=== PATIENT | female | born 1980 | race Caucasian/White ===

== ENCOUNTER 2016-08-09 20:40 | Emergency (ER) | payer OTHER ==
[~2016-08-09] VITALS: Ht 167.6 cm; Wt 146.4 kg
[~2016-08-09 20:40] MED LIST: ALBU1AER9 INH; ATRIN INH; CYCL10TA6 PO; EPIN1INJ37 IM; HYDR-5688 PO; LISI-461 PO; OXYC-57 PO; POTA10TA PO; PROM25TA9 PO
[2016-08-09 20:57] VITALS: TEMP 36.9; Ht 167.6 cm; Wt 146.4 kg
[2016-08-09] MEDS ORDERED: ALBU0.08 NEB (21:05)
[2016-08-09] MEDS ORDERED: ONDANSETRON INJ 2 MG/ML 2 ML VIAL IV STA (21:12)
[2016-08-09] MEDS ORDERED: SODIUM CHLORIDE 0.9% 1000ML 1,000 ML IV STA (21:12)
[2016-08-09] MEDS ORDERED: KETOROLAC TROMETHAMINE 30 MG/ML VIAL IV STA (21:12)
[2016-08-09] MEDS ORDERED: OPTIRAY 320 IV PRN (21:45)
[2016-08-09 21:49] LABS: BASO % 0.8 %; BASO ABS # 0.08 K/uL (0-0.2); COMPLETE YES; EOS % 2.1 %; IG% 0.3 %; LYMPH % 32.4 %; LYMPH ABS # 3.08 K/uL (1.2-3.4); MEAN CELL VOLUME 85.4 fL (80-100); MEAN CORPUSCULAR HEMOGLOBIN 28.7 pg (25-34); MEAN CORPUSCULAR HGB CONC 33.6 g/dl (32-36); MEAN PLATELET VOLUME 9.9 fL (7.4-10.4); MONO % 5.9 %; NEUT % 58.5 %; PLATELET COUNT 378 K/uL (130-400); RED BLOOD COUNT 4.92 M/uL (4.2-5.4); WHITE BLOOD COUNT 9.51 K/uL (4.8-10.8)
[2016-08-09 21:54] LABS: URINE APPEARANCE CLEAR (CLEAR); URINE BILIRUBIN NEG (NEG); URINE COLOR YELLOW; URINE EPITHELIAL CELL AUTO >30 /lpf (0-5); URINE NITRITE NEG (NEG); URINE SPECIFIC GRAVITY 1.021 (1.000-1.030); UROBILINOGEN NEG (NEG); ZZUR CULT IF INDIC CLEAN CATCH NO
[2016-08-09 21:55] LABS: MANUAL MICROSCOPIC REQUIRED? NO; REVIEW REQ? NO
[2016-08-09 22:10] LABS: ALT/SGPT 26 U/L (12-78); BLOOD UREA NITROGEN 11 mg/dl (7-18); BUN/CREATININE RATIO 14.1 (10-20); CARBON DIOXIDE 25 mmol/L (21-32); CHLORIDE 106 mmol/L (98-107); CREATININE 0.79 mg/dl (0.60-1.20); GLUCOSE 128 mg/dl (70-99); POTASSIUM 3.6 mmol/L (3.5-5.1); SODIUM 142 mmol/L (136-145)
[2016-08-09 22:13] LABS: ALKALINE PHOSPHATASE 108 U/L (45-117); AST/SGOT 18 U/L (15-37)
[2016-08-09] MEDS ORDERED: MoRPHine SULFATE 10 MG/ML CARP/VIAL IV STA (22:58)
[2016-08-09] MEDS ORDERED: OMEP40CA PO (23:00)
[2016-08-09] MEDS ORDERED: ZNTT/150 PO (23:01)
--- NOTE | 2016-08-09 23:26 | DIAGNOSTIC IMAGING REPORT ---
ABDOMEN AND PELVIS CT WITH IV CONTRAST CT DOSE: 1905.08 mGy.cm HISTORY: right mid lower abdominal pain TECHNIQUE: Multiaxial CT images of the abdomen and pelvis were performed following the use of intravenous contrast. COMPARISON STUDY: Abdomen and pelvis CT 07/22/2016. FINDINGS: The lung bases are clear. No pneumoperitoneum. No pneumatosis. No acute fractures within the visualized osseous structures. Tiny fat-containing umbilical hernia. Cholecystectomy and hysterectomy. The bladder is unremarkable. No pelvic free fluid. The ovaries are within normal limits. No hepatic or splenic masses. The pancreas, adrenal glands, and kidneys enhance normally. No hydronephrosis. No retroperitoneal lymphadenopathy. No bowel wall thickening or obstruction. Normal appendix. IMPRESSION: 1. No bowel wall thickening or obstruction. 2. Normal appendix. Electronically signed by: Jorge Talley M.D. 08/09/2016 11:24 PM Dictated Date/Time: 08/09/2016 11:17 PM
[2016-08-09 23:57] VITALS: BP 172/102; PULSE 88; O2SAT 97
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
[2017-03-29] MEDS ORDERED: FLUT1INH INH (13:23)
[2017-03-29] MEDS ORDERED: VNTHFA/IN INH (13:23)
[2017-03-29] MEDS ORDERED: CHOL100010 PO (13:23)
[2017-03-29] MEDS ORDERED: ALBU1.257 NEB (13:23)
== END 2016-08-09 23:57 | disposition home or self-care (01) ==
LOC: C.EDB 20:41
DX: R10.11 Right upper quadrant pain (principal); R11.0 Nausea; J45.909 Unspecified asthma, uncomplicated; E66.01 Morbid (severe) obesity due to excess calories; Z87.442 Personal history of urinary calculi; Z83.3 Family history of diabetes mellitus; Z82.49 Family history of ischemic heart disease and other diseases of the circulatory system; Z84.1 Family history of disorders of kidney and ureter; Z82.0 Family history of epilepsy and other diseases of the nervous system; Z90.710 Acquired absence of both cervix and uterus

== ENCOUNTER 2016-08-15 20:50 | Emergency (ER) | payer OTHER ==
[~2016-08-15] VITALS: Ht 167.6 cm; Wt 146.9 kg
[~2016-08-15 20:50] MED LIST changes: +ALBU0.08 NEB; +OMEP40CA PO; +ZNTT/150 PO
[2016-08-15 20:51] VITALS: Ht 167.6 cm; Wt 146.9 kg
[2016-08-15] MEDS ORDERED: NITR-5 PO (21:11)
[2016-08-15] MEDS ORDERED: ONDANSETRON INJ 2 MG/ML 2 ML VIAL IV STA (21:36)
[2016-08-15] MEDS ORDERED: MoRPHine SULFATE 10 MG/ML CARP/VIAL IV STA (21:36)
[2016-08-15] MEDS ORDERED: KETOROLAC TROMETHAMINE 30 MG/ML VIAL IV STA (21:36)
[2016-08-15] MEDS ORDERED: SODIUM CHLORIDE 0.9% 1000ML 1,000 ML IV STA (21:36)
[2016-08-15 21:46] LABS: BASO % 0.5 %; BASO ABS # 0.06 K/uL (0-0.2); COMPLETE YES; EOS % 2.3 %; HEMATOCRIT 43.9 % (37-47); IG% 0.3 %; LYMPH ABS # 3.15 K/uL (1.2-3.4); MEAN CELL VOLUME 84.4 fL (80-100); MEAN CORPUSCULAR HEMOGLOBIN 28.8 pg (25-34); MEAN CORPUSCULAR HGB CONC 34.2 g/dl (32-36); MEAN PLATELET VOLUME 10.3 fL (7.4-10.4); MONO % 8.1 %; NEUT % 60.8 %; PLATELET COUNT 392 K/uL (130-400); WHITE BLOOD COUNT 11.23 K/uL (4.8-10.8)
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
[2016-08-15 21:54] LABS: URINE APPEARANCE CLEAR (CLEAR); URINE BILIRUBIN NEG (NEG); URINE COLOR YELLOW; URINE NITRITE NEG (NEG); URINE SPECIFIC GRAVITY 1.016 (1.000-1.030); UROBILINOGEN NEG (NEG); ZZUR CULT IF INDIC CLEAN CATCH NO
[2016-08-15 21:58] LABS: MANUAL MICROSCOPIC REQUIRED? NO; REVIEW REQ? NO
[2016-08-15 22:01] LABS: ALKALINE PHOSPHATASE 119 U/L (45-117); ALT/SGPT 28 U/L (12-78); AST/SGOT 23 U/L (15-37); BLOOD UREA NITROGEN 9 mg/dl (7-18); BUN/CREATININE RATIO 12.6 (10-20); CARBON DIOXIDE 24 mmol/L (21-32); CHLORIDE 108 mmol/L (98-107); CREATININE 0.72 mg/dl (0.60-1.20); GLUCOSE 99 mg/dl (70-99); POTASSIUM 3.9 mmol/L (3.5-5.1); SODIUM 143 mmol/L (136-145)
--- NOTE | 2016-08-15 22:48 | DIAGNOSTIC IMAGING REPORT ---
ULTRASOUND KIDNEYS AND BLADDER CLINICAL HISTORY: Bilateral flank pain. COMPARISON STUDY: Abdominal CT dated 08/09/2016. TECHNIQUE: Real-time, grayscale, and color flow sonography of the kidneys and bladder is performed. Images are reviewed in the transverse and longitudinal planes. The examination is degraded by large body habitus. FINDINGS: Kidneys: The kidneys are normal in size and echotexture. The right kidney measures 12.9 cm inlet and the left kidney measures 12.4 cm in length. There is no hydronephrosis. No shadowing renal calculi are identified. There is no sonographic evidence of contour deforming renal mass lesion. No perinephric fluid is identified. Bladder: The bladder is normal in appearance. Bilateral ureteral jets were seen. Upper abdomen: Hepatomegaly and hepatic steatosis is noted. IMPRESSION: 1. Unremarkable sonographic assessment of the kidneys and bladder. 2. Hepatomegaly and hepatic steatosis. Electronically signed by: Christ Joseph M.D. 08/15/2016 10:46 PM Dictated Date/Time: 08/15/2016 10:44 PM
[2016-08-16 00:06] VITALS: BP 157/99; PULSE 88; TEMP 37.2; O2SAT 97
[2017-03-29] MEDS ORDERED: CHOL100010 PO (13:23)
[2017-03-29] MEDS ORDERED: VNTHFA/IN INH (13:23)
[2017-03-29] MEDS ORDERED: FLUT1INH INH (13:23)
[2017-03-29] MEDS ORDERED: ALBU1.257 NEB (13:23)
== END 2016-08-16 00:07 | disposition home or self-care (01) ==
LOC: C.EDB 20:50 → C.EDC 08-16 00:07
DX: R10.9 Unspecified abdominal pain (principal); J45.909 Unspecified asthma, uncomplicated; F31.9 Bipolar disorder, unspecified; Z87.442 Personal history of urinary calculi; E11.9 Type 2 diabetes mellitus without complications; I10 Essential (primary) hypertension; G43.909 Migraine, unspecified, not intractable, without status migrainosus; Z79.899 Other long term (current) drug therapy

== ENCOUNTER → 2016-09-16 | Outpatient (CLI) | payer OTHER ==
[~2016-09-16] MED LIST changes: +ALBU1.257 NEB; +AMLO-114 PO; +CARV12.5 PO; +CHOL100010 PO; +ERGO500037 PO; +FLUT1INH INH; +FLUT1INH PO; +HYDR50CA2 PO; +LISI-788 PO; +LITH150C6 PO; +MONT1TAB3 PO; +NITR-5 PO; +OSEL75CA12 PO; +PARO30TA PO; +POTA-74 PO; +PRLSR20 PO; +RANITAB33 PO; +SUMA20SP8; +VNTHFA/IN INH
== END | disposition home or self-care (01) ==
LOC: C.LAB1850 15:36
PROVIDERS: ATTEND Family Medicine
DX: E55.9 Vitamin D deficiency, unspecified (principal); E53.8 Deficiency of other specified B group vitamins

== ENCOUNTER 2016-10-18 00:52 | Emergency (ER) | payer OTHER ==
[~2016-10-18] VITALS: Ht 165.1 cm; Wt 148.6 kg
[~2016-10-18 00:52] MED LIST changes: -ALBU1.257 NEB; -AMLO-114 PO; -CARV12.5 PO; -CHOL100010 PO; -ERGO500037 PO; -FLUT1INH INH; -FLUT1INH PO; -HYDR50CA2 PO; -LISI-788 PO; -LITH150C6 PO; -MONT1TAB3 PO; -OSEL75CA12 PO; -OXYC-57 PO; -PARO30TA PO; -POTA-74 PO; -PRLSR20 PO; -RANITAB33 PO; -SUMA20SP8; -VNTHFA/IN INH
[2016-10-18 00:56] VITALS: TEMP 36.9; Ht 165.1 cm; Wt 148.6 kg
[2016-10-18] MEDS ORDERED: DiphenhydrAMINE HCL 50 MG/ML VIAL IV STA (01:10)
[2016-10-18] MEDS ORDERED: KETOROLAC TROMETHAMINE 30 MG/ML VIAL IV STA (01:10)
[2016-10-18] MEDS ORDERED: SODIUM CHLORIDE 0.9% 1000ML 1,000 ML IV STA (01:10)
[2016-10-18] MEDS ORDERED: METOCLOPRAMIDE HCL INJ 5 MG/ML 2 ML VIAL IV STA (01:10)
[2016-10-18 02:11] VITALS: BP 144/90; PULSE 91; O2SAT 97
[2016-10-18] MEDS ORDERED: LITH150C6 PO ×2 (02:16)
[2016-10-18] MEDS ORDERED: PRLSR20 PO (02:17)
[2016-10-18] MEDS ORDERED: RANITAB33 PO (02:17)
[2016-10-18] MEDS ORDERED: PARO30TA PO (02:18)
[2016-10-18] MEDS ORDERED: MONT1TAB3 PO (02:18)
[2016-10-18] MEDS ORDERED: AMLO-114 PO (02:18)
[2016-10-18] MEDS ORDERED: CARV12.5 PO (02:20)
[2016-10-18] MEDS ORDERED: HYDR50CA2 PO (02:20)
[2016-10-18] MEDS ORDERED: FLUT1INH PO (02:20)
[2016-10-18] MEDS ORDERED: POTA-74 PO (02:20)
[2016-10-18] MEDS ORDERED: LISI-788 PO (02:20)
[2016-10-18] MEDS ORDERED: ERGO500037 PO (02:21)
[2016-10-18] MEDS ORDERED: SUMA20SP8 (02:21)
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
[2017-03-29] MEDS ORDERED: ALBU1.257 NEB (13:23)
[2017-03-29] MEDS ORDERED: CHOL100010 PO (13:23)
[2017-03-29] MEDS ORDERED: FLUT1INH INH (13:23)
[2017-03-29] MEDS ORDERED: VNTHFA/IN INH (13:23)
== END 2016-10-18 02:12 | disposition home or self-care (01) ==
LOC: C.EDB 00:54 → C.EDC 02:12
DX: G43.009 Migraine without aura, not intractable, without status migrainosus (principal); J45.909 Unspecified asthma, uncomplicated; F31.9 Bipolar disorder, unspecified; Z87.442 Personal history of urinary calculi; E11.9 Type 2 diabetes mellitus without complications; I10 Essential (primary) hypertension; Z91.81 History of falling; Z87.828 Personal history of other (healed) physical injury and trauma; Z83.3 Family history of diabetes mellitus; Z80.9 Family history of malignant neoplasm, unspecified; Z83.79 Family history of other diseases of the digestive system; Z82.49 Family history of ischemic heart disease and other diseases of the circulatory system; Z84.1 Family history of disorders of kidney and ureter; Z79.899 Other long term (current) drug therapy

== ENCOUNTER 2016-10-29 11:10 | Emergency (ER) | payer OTHER ==
[~2016-10-29] VITALS: Ht 165.1 cm; Wt 146.0 kg
[~2016-10-29 11:10] MED LIST changes: -ALBU0.08 NEB; -ALBU1AER9 INH; +AMLO-114 PO; -ATRIN INH; +CARV12.5 PO; +ERGO500037 PO; +FLUT1INH PO; -HYDR-5688 PO; +HYDR50CA2 PO; -LISI-461 PO; +LISI-788 PO; +LITH150C6 PO; +MONT1TAB3 PO; -NITR-5 PO; -OMEP40CA PO; +PARO30TA PO; +POTA-74 PO; -POTA10TA PO; +PRLSR20 PO; -PROM25TA9 PO; +RANITAB33 PO; +SUMA20SP8; -ZNTT/150 PO
[2016-10-29 11:16] VITALS: TEMP 37.4; Ht 165.1 cm; Wt 146.0 kg
[2016-10-29] MEDS ORDERED: ALBUT/IPRATROP 3MG/0.5MG NEB 3 ML VIAL INH STA (11:35)
[2016-10-29 11:57] LABS: BASO % 0.9 %; BASO ABS # 0.06 K/uL (0-0.2); COMPLETE YES; EOS % 2.2 %; IG% 0.3 %; LYMPH % 8.7 %; MEAN CELL VOLUME 86.1 fL (80-100); MEAN CORPUSCULAR HGB CONC 33.6 g/dl (32-36); MEAN PLATELET VOLUME 9.8 fL (7.4-10.4); MONO % 9.1 %; NEUT % 78.8 %; PLATELET COUNT 320 K/uL (130-400); RED BLOOD COUNT 5.11 M/uL (4.2-5.4); WHITE BLOOD COUNT 6.92 K/uL (4.8-10.8)
[2016-10-29 12:13] LABS: ALT/SGPT 30 U/L (12-78); BLOOD UREA NITROGEN 9 mg/dl (7-18); BUN/CREATININE RATIO 12.4 (10-20); CALCIUM 8.5 mg/dl (8.5-10.1); CARBON DIOXIDE 23 mmol/L (21-32); CHLORIDE 106 mmol/L (98-107); CREATININE 0.76 mg/dl (0.60-1.20); GLUCOSE 97 mg/dl (70-99); POTASSIUM 3.9 mmol/L (3.5-5.1); SODIUM 138 mmol/L (136-145)
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
[2016-10-29 12:17] LABS: ALB/GLOB RATIO 0.8 (0.9-2); ALKALINE PHOSPHATASE 122 U/L (45-117); AST/SGOT 34 U/L (15-37)
--- NOTE | 2016-10-29 12:20 | DIAGNOSTIC IMAGING REPORT ---
CHEST 2 VIEWS ROUTINE CLINICAL HISTORY: Cough, sob, chest pain COMPARISON STUDY: Chest radiograph and chest CT September 29, 2015. FINDINGS: Lung volumes are normal. There is no pneumothorax or pleural effusion. Pulmonary vascularity is normal. Cardiomediastinal silhouette is normal. IMPRESSION: No acute cardiopulmonary findings. Electronically signed by: Talha Grijalva M.D. 10/29/2016 12:18 PM Dictated Date/Time: 10/29/2016 12:18 PM
[2016-10-29] MEDS ORDERED: OSEL75CA12 PO (12:53)
[2016-10-29 13:01] VITALS: BP 187/114; PULSE 107; O2SAT 96
[2017-03-29] MEDS ORDERED: CHOL100010 PO (13:23)
[2017-03-29] MEDS ORDERED: VNTHFA/IN INH (13:23)
[2017-03-29] MEDS ORDERED: ALBU1.257 NEB (13:23)
[2017-03-29] MEDS ORDERED: FLUT1INH INH (13:23)
== END 2016-10-29 13:02 | disposition home or self-care (01) ==
LOC: C.EDB 11:12
DX: J09.X2 Influenza due to identified novel influenza A virus with other respiratory manifestations (principal); I45.10 Unspecified right bundle-branch block; E11.9 Type 2 diabetes mellitus without complications; I10 Essential (primary) hypertension; N83.202 Unspecified ovarian cyst, left side; F41.9 Anxiety disorder, unspecified; J45.909 Unspecified asthma, uncomplicated; F17.200 Nicotine dependence, unspecified, uncomplicated; Z87.820 Personal history of traumatic brain injury; Z87.442 Personal history of urinary calculi; Z87.81 Personal history of (healed) traumatic fracture; Z91.81 History of falling; Z90.710 Acquired absence of both cervix and uterus; Z98.51 Tubal ligation status; Z90.49 Acquired absence of other specified parts of digestive tract; Z79.899 Other long term (current) drug therapy; Z91.018 Allergy to other foods; Z91.030 Bee allergy status; Z83.3 Family history of diabetes mellitus; Z80.9 Family history of malignant neoplasm, unspecified; Z83.79 Family history of other diseases of the digestive system; Z82.49 Family history of ischemic heart disease and other diseases of the circulatory system; Z84.1 Family history of disorders of kidney and ureter; Z82.0 Family history of epilepsy and other diseases of the nervous system

== ENCOUNTER → 2017-03-30 | Day surgery (SDC) | payer OTHER ==
[2017-03-29 13:09] VITALS: Ht 165.1 cm; Wt 151.4 kg
[~2017-03-30] VITALS: Ht 165.1 cm; Wt 151.4 kg
[~2017-03-30] MED LIST changes: +ALBU1.257 NEB; +CHOL100010 PO; -CYCL10TA6 PO; -ERGO500037 PO; +FLUT1INH INH; -FLUT1INH PO; +LIDOCAINE HCL 2% 2 ML VIAL (20MG/ML) ONE; -LITH150C6 PO; +MIDAZOLAM HCL 1 MG/ML 2ML VIAL ONE; -MONT1TAB3 PO; +ONDANSETRON INJ 2 MG/ML 2 ML VIAL ONE; -PARO30TA PO; +PROPOFOL IV EMULSION 10 MG/ML 20 ML VIAL IV ONE; +SODIUM CHLORIDE 0.9% 500ML 500 ML IV ONE; +VNTHFA/IN INH
[2017-03-30 15:01] VITALS: TEMP 37.1
--- NOTE | 2017-03-30 15:22 | Endo History and Physical ---
History & Physical Date of Service: Mar 30, 2017. Chief Complaint: rectal bleeding Referring Physician: Tracie Garner PA-C History of Present Illness 36 yo CF who presents for colonoscopy secondary to rectal bleeding. Past Medical History Other Psy. Disorders, Arthritis, Asthma, Anxiety, Hypertension, Depression Past Surgical History Hx Cardiac Surgery: No Hx Internal Defibrillator: No Hx Pacemaker: No Hx Abdominal Surgery: Yes (JORDON, TUBAL LIGATION, HYSTERECTOMY, OVARIAN CYST REMOVAL) Hx of Implantable Prosthesis: No Hx Post-Op Nausea and Vomiting: No Hx Cancer Surgery: No Hx Thoracic Surgery: No Hx Orthopedic: Yes (RT/LEFT KNEE SURGERY, LEFT ANKLE SX X 2, RT WRIST GANGLION CYST REMOVED) Hx Urinary Tract Surgery: No Family History Colon CA, IBD Social History Smoking Status: Former Smoker Hx Substance Use: No Hx Alcohol Use: Yes (RARELY) Allergies Coded Allergies: BEE STING (Verified Allergy, Severe, swell, has epi pen, 03/29/17) Pineapple (Verified Allergy, Severe, MOUTH RASH, 03/29/17) Clam (Verified Allergy, Unknown, throat closes, 03/29/17) Coconut (Verified Allergy, Unknown, rash if touched, throat closes if eaten, 03/29/17) Copper (Verified Allergy, Unknown, rash , 03/29/17) Lamotrigine (Verified Allergy, Unknown, itching, rash,sob(to generic) .can use brand name, 03/29/17) Mussel (Verified Allergy, Unknown, throat closes , 03/29/17) Nickel (Verified Allergy, Unknown, rash, 03/29/17) Oyster (Verified Allergy, Unknown, throat closes , 03/29/17) Scallop (Verified Allergy, Unknown, UNKNOWN, 03/29/17) Current Medications Reported Home Medications Medications Dose Route/Sig Max Daily Dose Days Date Category Vitamin D (Cholecalciferol) 1,000 Unit Tab 1 Tab PO BID 03/29/17 Reported Ventolin Hfa (Albuterol) 200 Puffs/85553 Mcg Aers 2-4 Puffs INH Q6H PRN 03/29/17 Reported Breo Ellipta (Fluticasone Furoate-Vilanterol) 1 Inh Inh 1 Puff INH QAM 03/29/17 Reported Albuterol Sulfate 1.25 Mg/3 Ml Neb 1 Vial NEB Q4 PRN 5 03/29/17 Reported Imitrex (Sumatriptan) 20 Mg/Act Spr 1 Dose NA UD PRN 10/18/16 Reported Vistaril (Hydroxyzine Pamoate) 50 Mg Cap 50 Mg PO BID PRN 10/18/16 Reported Zestoretic 20MG/25MG (HCTZ/Lisinopril) Tab 1 Tab PO BID 10/18/16 Reported Coreg (Carvedilol) 12.5 Mg Tab 12.5 Mg PO BID 10/18/16 Reported Potassium Chloride Er (Potassium Chloride) 10 Meq Tab 1 Tab PO QAM 10/18/16 Reported Norvasc (Amlodipine Besylate) 10 Mg Tab 10 Mg PO QAM 10/18/16 Reported Zantac (Ranitidine Hcl) 75 Mg Tab 75 Mg PO QAM 10/18/16 Reported Prilosec (Omeprazole) 20 Mg Capcr 20 Mg PO BID 10/18/16 Reported Epinephrine 0.3 Mg/0.3 Ml Inj 0.3 Mg IM UD PRN 06/05/14 Reported Vital Signs Weight (Kilograms): 151.36 Height (Feet): 5 Height (Inches): 5 Date Time Temp Pulse Resp B/P (MAP) Pulse Ox O2 Delivery O2 Flow Rate FiO2 03/30/17 15:01 37.1 98 20 177/94 (121) 96 Room Air Physical Exam General Appearance: WD/WN, no apparent distress Respiratory/Chest: Auscultation: breath sounds normal Cardiovascular: Heart Auscultation: RRR Abdomen: Bowel Sounds: normal Inspection & Palpation: soft, non-distended, no tenderness, guarding & rebound Assessment and Plan Assessment: 36 yo CF who presents for colonoscopy secondary to rectal bleeding. Plan: Proceed with colonoscopy.
--- NOTE | 2017-03-30 16:06 | GI REPORT ---
Procedure Date: 03/30/2017 3:34 PM Procedure: Colonoscopy Indications: Rectal bleeding Medicines: Monitored Anesthesia Care Complications: No immediate complications. Estimated Blood Loss: Estimated blood loss: none. Procedure: Pre-Anesthesia Assessment: - Prior to the procedure, a History and Physical was performed, and patient medications and allergies were reviewed. The patient's tolerance of previous anesthesia was also reviewed. The risks and benefits of the procedure and the sedation options and risks were discussed with the patient. All questions were answered, and informed consent was obtained. Prior Anticoagulants: The patient has taken no previous anticoagulant or antiplatelet agents. ASA Grade Assessment: III - A patient with severe systemic disease. After reviewing the risks and benefits, the patient was deemed in satisfactory condition to undergo the procedure. After I obtained informed consent, the scope was passed under direct vision. Throughout the procedure, the patient's blood pressure, pulse, and oxygen saturations were monitored continuously. The On-site loaner was introduced through the anus and advanced to the terminal ileum. The colonoscopy was performed without difficulty. The patient tolerated the procedure well. The quality of the bowel preparation was poor. The terminal ileum, ileocecal valve, appendiceal orifice, and rectum were photographed. Findings: Non-bleeding external and internal hemorrhoids were found during retroflexion and during perianal exam. The hemorrhoids were medium-sized. The exam was otherwise without abnormality. Impression: - Preparation of the colon was poor. - Non-bleeding external and internal hemorrhoids. - The examination was otherwise normal. - No specimens collected. Recommendation: - Resume previous diet. - Continue present medications. - Repeat colonoscopy at age 51 for surveillance. - Return to primary care physician as previously scheduled. Sandeep Watts, 03/30/2017 4:05:50 PM This report has been signed electronically. Note Initiated On: 03/30/2017 3:34 PM I attest to the content of the Intraoperative Record and orders documented therein, exceptions below
--- NOTE | 2017-03-30 16:13 | Discharge Instructions ---
Endoscopy Patient Instructions Date / Procedure(s) Performed Mar 30, 2017. Colonoscopy Allergy Information Coded Allergies: BEE STING (Verified Allergy, Severe, swell, has epi pen, 03/29/17) Pineapple (Verified Allergy, Severe, MOUTH RASH, 03/29/17) Clam (Verified Allergy, Unknown, throat closes, 03/29/17) Coconut (Verified Allergy, Unknown, rash if touched, throat closes if eaten, 03/29/17) Copper (Verified Allergy, Unknown, rash , 03/29/17) Lamotrigine (Verified Allergy, Unknown, itching, rash,sob(to generic) .can use brand name, 03/29/17) Mussel (Verified Allergy, Unknown, throat closes , 03/29/17) Nickel (Verified Allergy, Unknown, rash, 03/29/17) Oyster (Verified Allergy, Unknown, throat closes , 03/29/17) Scallop (Verified Allergy, Unknown, UNKNOWN, 03/29/17) Discharge Date / Findings Mar 30, 2017. OK to resume all medications today as prescribed Reported Home Medications Medications Dose Route/Sig Max Daily Dose Days Date Category Vitamin D (Cholecalciferol) 1,000 Unit Tab 1 Tab PO BID 03/29/17 Reported Ventolin Hfa (Albuterol) 200 Puffs/10546 Mcg Aers 2-4 Puffs INH Q6H PRN 03/29/17 Reported Breo Ellipta (Fluticasone Furoate-Vilanterol) 1 Inh Inh 1 Puff INH QAM 03/29/17 Reported Albuterol Sulfate 1.25 Mg/3 Ml Neb 1 Vial NEB Q4 PRN 5 03/29/17 Reported Imitrex (Sumatriptan) 20 Mg/Act Spr 1 Dose NA UD PRN 10/18/16 Reported Vistaril (Hydroxyzine Pamoate) 50 Mg Cap 50 Mg PO BID PRN 10/18/16 Reported Zestoretic 20MG/25MG (HCTZ/Lisinopril) Tab 1 Tab PO BID 10/18/16 Reported Coreg (Carvedilol) 12.5 Mg Tab 12.5 Mg PO BID 10/18/16 Reported Potassium Chloride Er (Potassium Chloride) 10 Meq Tab 1 Tab PO QAM 10/18/16 Reported Norvasc (Amlodipine Besylate) 10 Mg Tab 10 Mg PO QAM 10/18/16 Reported Zantac (Ranitidine Hcl) 75 Mg Tab 75 Mg PO QAM 10/18/16 Reported Prilosec (Omeprazole) 20 Mg Capcr 20 Mg PO BID 10/18/16 Reported Epinephrine 0.3 Mg/0.3 Ml Inj 0.3 Mg IM UD PRN 06/05/14 Reported Provider Instructions Activity Restrictions - No exercising or heavy lifting for 24 hours. - Do not drink alcohol the day of the procedure. - Do not drive a car or operate machinery until the day after the procedure. - Do not make any important decisions or sign important papers in 24 hours after the procedure. Following Day: - Return to full activity which may include returning to work/school. Diet Start your diet with liquids and light foods (jello, soup, juice, toast). Then eat your usual diet if not nauseated. Treatment For Common After Affects For mild abdominal pain, bloating, or excessive gas: - Rest - Eat lightly - Lie on right side Follow-Up Information Follow-up with Tracie Garner PA-C as scheduled Anesthesia Information What You Should Know You have had a procedure that required some medicine to reduce anxiety and discomfort. This treatment is called moderate sedation. After receiving the treatment, you may be sleepy, but you will be able to breathe on your own. The effects of the treatment may last for several hours. Follow these instructions along with Activity/Diet recommendations noted above: * Do NOT do anything where dizziness or clumsiness would be dangerous. * Rest quietly at home today, then you can be up and about tomorrow. * Have a responsible person stay with you the rest of today. * You may have had an I.V. today. If so, you may take the dressing off later today. Recommendations Call your doctor if: * Trouble breathing * Continuous vomiting for more than 24 hours * Temperature above 101 degrees * Severe abdominal pain or bloating * Pain not relieved by pain medicine ordered * There is increased drainage or redness from any incision * A large amount of rectal bleeding greater than 2-3 tablespoons. (If you had a polyp/s removed or have hemorrhoids, a small amount of blood - from the rectum is to be expected.) * You have any unanswered questions or concerns. IN THE EVENT OF A SERIOUS EMERGENCY, GO TO THE NEAREST EMERGENCY ROOM Your discharge instructions were prepared by provider Sandeep Watts. Patient Instructions Signature Page Rae Arreguin Patient (or Guardian) Signature/Date: I have read and understand the instructions given to me by my caregivers. Caregiver/RN/Doctor Signature/Date: The above-named patient and/or guardian has received patient instructions on this date. + Original Patient Signature Page (only) stays with chart. Please make copy for patient.
[2017-03-30 16:35] VITALS: BP 158/86; PULSE 83; O2SAT 95
--- NOTE | 2017-03-30 16:38 | Anesthesiology Progress Note ---
Anesthesia Post Op Note Date & Time Mar 30, 2017 at 16:38 Vital Signs Pain Intensity: 0 Vital Signs Past 12 Hours Date Time Temp Pulse Resp B/P (MAP) Pulse Ox O2 Delivery O2 Flow Rate FiO2 03/30/17 16:35 83 18 158/86 (110) 95 Room Air 03/30/17 16:20 85 18 154/92 (112) 95 Room Air 03/30/17 16:05 93 18 141/77 (98) 95 Room Air 03/30/17 15:01 37.1 98 20 177/94 (121) 96 Room Air Notes Mental Status: alert / awake / arousable, participated in evaluation Pt Amnestic to Procedure: Yes Nausea / Vomiting: adequately controlled Pain: adequately controlled Airway Patency, RR, SpO2: stable & adequate BP & HR: stable & adequate Hydration State: stable & adequate Anesthetic Complications: no major complications apparent
== END | disposition home or self-care (01) ==
LOC: C.GI 14:42
PROVIDERS: ATTEND Internal Medicine
DX: K62.5 Hemorrhage of anus and rectum (principal); K64.8 Other hemorrhoids; M19.90 Unspecified osteoarthritis, unspecified site; J45.909 Unspecified asthma, uncomplicated; I10 Essential (primary) hypertension; F41.9 Anxiety disorder, unspecified; F32.9 Major depressive disorder, single episode, unspecified; Z87.891 Personal history of nicotine dependence

== ENCOUNTER → 2017-04-25 | Outpatient (CLI) | payer OTHER ==
[~2017-04-25] MED LIST changes: -LIDOCAINE HCL 2% 2 ML VIAL (20MG/ML) ONE; -MIDAZOLAM HCL 1 MG/ML 2ML VIAL ONE; -ONDANSETRON INJ 2 MG/ML 2 ML VIAL ONE; -PROPOFOL IV EMULSION 10 MG/ML 20 ML VIAL IV ONE; -SODIUM CHLORIDE 0.9% 500ML 500 ML IV ONE
[2017-04-25 17:29] LABS: BASO % 0.6 %; BASO ABS # 0.07 K/uL (0-0.2); COMPLETE YES; EOS % 3.2 %; HEMATOCRIT 43.3 % (37-47); IG% 0.2 %; LYMPH % 25.4 %; LYMPH ABS # 2.81 K/uL (1.2-3.4); MEAN CELL VOLUME 87.3 fL (80-100); MEAN CORPUSCULAR HEMOGLOBIN 28.2 pg (25-34); MEAN CORPUSCULAR HGB CONC 32.3 g/dl (32-36); MEAN PLATELET VOLUME 10.3 fL (7.4-10.4); NEUT % 62.6 %; PLATELET COUNT 376 K/uL (130-400); RED BLOOD COUNT 4.96 M/uL (4.2-5.4); WHITE BLOOD COUNT 11.08 K/uL (4.8-10.8)
[2017-04-25 18:06] LABS: ALT/SGPT 29 U/L (12-78); AST/SGOT 18 U/L (15-37); BLOOD UREA NITROGEN 11 mg/dl (7-18); CARBON DIOXIDE 24 mmol/L (21-32); CHLORIDE 108 mmol/L (98-107); GLUCOSE 100 mg/dl (70-99); POTASSIUM 3.7 mmol/L (3.5-5.1); SODIUM 140 mmol/L (136-145)
[2017-04-25 18:08] LABS: ALB/GLOB RATIO 0.9 (0.9-2); ALKALINE PHOSPHATASE 110 U/L (45-117)
== END | disposition home or self-care (01) ==
LOC: C.LAB1850 16:39
PROVIDERS: ATTEND Physician Assistant
DX: Z00.00 Encounter for general adult medical examination without abnormal findings (principal); E53.8 Deficiency of other specified B group vitamins

== ENCOUNTER → 2017-06-27 | Outpatient (CLI) | payer OTHER | END | disposition home or self-care (01) | LOC: C.LAB1850 16:40 | PROVIDERS: ATTEND Physician Assistant | DX: E55.9 Vitamin D deficiency, unspecified (principal) ==

== ENCOUNTER 2017-07-20 00:44 | Emergency (ER) | payer OTHER ==
[~2017-07-20] VITALS: Ht 165.1 cm; Wt 152.6 kg
[~2017-07-20 00:44] MED LIST changes: +EPIN0.3I14 IM; -EPIN1INJ37 IM
[2017-07-20 00:57] VITALS: TEMP 36.9; Ht 165.1 cm; Wt 152.6 kg
[2017-07-20] MEDS ORDERED: KETOROLAC TROMETHAMINE 30 MG/ML VIAL IV STA (01:45)
[2017-07-20] MEDS ORDERED: ONDANSETRON INJ 2 MG/ML 2 ML VIAL IV STA (01:45)
[2017-07-20 01:57] LABS: BASO % 0.5 %; BASO ABS # 0.07 K/uL (0-0.2); COMPLETE YES; HEMATOCRIT 44.5 % (37-47); IG% 0.3 %; LYMPH % 29.5 %; LYMPH ABS # 4.11 K/uL (1.2-3.4); MEAN CELL VOLUME 87.3 fL (80-100); MEAN CORPUSCULAR HGB CONC 33.3 g/dl (32-36); MONO % 6.6 %; NEUT % 60.1 %; PLATELET COUNT 378 K/uL (130-400); WHITE BLOOD COUNT 13.95 K/uL (4.8-10.8)
[2017-07-20 02:14] LABS: BUN/CREATININE RATIO 13.8 (10-20); CALCIUM 9.2 mg/dl (8.5-10.1); CREATININE 0.97 mg/dl (0.60-1.20); POTASSIUM 3.7 mmol/L (3.5-5.1)
[2017-07-20 02:16] LABS: URINE APPEARANCE CLOUDY (CLEAR); URINE BILIRUBIN NEG (NEG); URINE COLOR YELLOW; URINE EPITHELIAL CELL AUTO >30 /lpf (0-5); URINE NITRITE NEG (NEG); URINE SPECIFIC GRAVITY 1.029 (1.000-1.030); UROBILINOGEN NEG (NEG)
[2017-07-20 02:19] LABS: MANUAL MICROSCOPIC REQUIRED? NO; REVIEW REQ? YES
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
[2017-07-20 04:33] VITALS: BP 176/99; PULSE 90; O2SAT 96
--- NOTE | 2017-07-20 06:49 | DIAGNOSTIC IMAGING REPORT ---
RENAL ULTRASOUND CLINICAL HISTORY: Right-sided pain. Evaluate for right ureteral stone. COMPARISON STUDY: CT of the abdomen and pelvis 05/09/2017 and renal ultrasound August 15, 2016. TECHNIQUE: Sonography of the kidneys and the urinary bladder was performed. FINDINGS: This exam is compromised by suboptimal penetration. There is no hydronephrosis. The right kidney measures 11.1 cm in maximal dimension and the left measures 11.4 cm. A 7 mm echogenic focus within the left renal sinus is likely artifactual. Both ureteral jets were identified. No shadowing calculi were identified. IMPRESSION: 1. No hydronephrosis. 2. 7 mm echogenic focus within the left renal sinus which is likely artifactual. No convincing urinary calculi. Electronically signed by: Talha Grijalva M.D. 07/20/2017 6:48 AM Dictated Date/Time: 07/20/2017 6:45 AM
== END 2017-07-20 04:30 | disposition home or self-care (01) ==
LOC: C.EDB 00:45 → C.EDA 04:30
DX: R10.2 Pelvic and perineal pain (principal); R31.9 Hematuria, unspecified; R11.2 Nausea with vomiting, unspecified; E11.9 Type 2 diabetes mellitus without complications; I10 Essential (primary) hypertension; Z87.442 Personal history of urinary calculi; Z87.440 Personal history of urinary (tract) infections; Z90.49 Acquired absence of other specified parts of digestive tract; Z79.51 Long term (current) use of inhaled steroids; Z83.3 Family history of diabetes mellitus; Z83.79 Family history of other diseases of the digestive system; Z82.49 Family history of ischemic heart disease and other diseases of the circulatory system; Z84.1 Family history of disorders of kidney and ureter

== ENCOUNTER → 2017-08-11 | Outpatient (CLI) | payer OTHER ==
[2017-08-11 12:28] LABS: ALBUMIN 3.4 gm/dl (3.4-5.0); ALT/SGPT 25 U/L (12-78); AST/SGOT 17 U/L (15-37); BLOOD UREA NITROGEN 13 mg/dl (7-18); CALCIUM 8.8 mg/dl (8.5-10.1); CARBON DIOXIDE 25 mmol/L (21-32); CREATININE 0.72 mg/dl (0.60-1.20); GLUCOSE 105 mg/dl (70-99); POTASSIUM 3.7 mmol/L (3.5-5.1); SODIUM 139 mmol/L (136-145)
[2017-08-11 12:31] LABS: ALKALINE PHOSPHATASE 114 U/L (45-117); TOTAL PROTEIN 7.2 gm/dl (6.4-8.2)
== END | disposition home or self-care (01) ==
LOC: C.LAB 10:24
PROVIDERS: ATTEND Urology
DX: R31.0 Gross hematuria (principal); E55.9 Vitamin D deficiency, unspecified

== ENCOUNTER → 2017-08-12 | Outpatient (CLI) | payer OTHER ==
--- NOTE | 2017-08-12 11:42 | DIAGNOSTIC IMAGING REPORT ---
CT ABD/PELVIS COMBO CLINICAL HISTORY: R31.0 Gross hematuria ref# [id number] [id number] COMPARISON STUDY: 08/09/2016 TECHNIQUE: Unenhanced images were obtained through the abdomen and pelvis. The patient was injected with 50 cc Optiray 320. After 5 minute delay, the patient is rescanned in a dynamic helical fashion during intravenous administration of additional 70 cc Optiray 320. A dose lowering technique was utilized adhering to the principles of ALARA. CT DOSE: 2241.51 mGycm FINDINGS: Lower chest: The heart is normal in size and configuration, without pericardial effusion. The lung bases and pleural spaces are clear. Liver: There is mild hepatic steatosis. No focal masses are visualized. There is no ductal dilatation. Gallbladder: Surgically absent Spleen: Normal in size and attenuation. Pancreas: Unremarkable. Adrenal glands: Unremarkable. Kidneys: There is a 2 mm nonobstructing left renal calculus. No ureteral or bladder calculi are visualized. Postcontrast images reveal no solid renal masses. No collecting system filling defects are visualized. There is no hydronephrosis. No ureteral lesions are visualized. Bowel: There are no transition zones to indicate bowel obstruction. There is no evidence of acute appendicitis. There is no acute diverticulitis. Peritoneum: There is no intraperitoneal free air or abdominal ascites. Vasculature: The abdominal aorta is normal in course and caliber. Adenopathy: None. Pelvic viscera: The uterus is surgically absent. Skeletal structures: No destructive osseous lesions are seen. IMPRESSION: 1. 2 mm nonobstructing left renal calculus 2. No solid renal masses identified 3. No uroepithelial lesions are visualized 4. No acute intra-abdominal or pelvic findings Electronically signed by: Reinier Boone M.D. 08/12/2017 11:40 AM Dictated Date/Time: 08/12/2017 11:31 AM
== END | disposition home or self-care (01) ==
LOC: C.CTS 10:59
PROVIDERS: ATTEND Urology
DX: N20.0 Calculus of kidney (principal); R31.9 Hematuria, unspecified

== ENCOUNTER → 2017-08-19 | Outpatient (CLI) | payer OTHER | END | disposition home or self-care (01) | LOC: C.RAD1850 15:46 | DX: N20.0 Calculus of kidney (principal); R19.7 Diarrhea, unspecified; S99.919A Unspecified injury of unspecified ankle, initial encounter; Z87.09 Personal history of other diseases of the respiratory system ==

== ENCOUNTER 2017-09-27 08:56 | Day surgery (SDC) | payer OTHER ==
[2017-09-16 09:12] VITALS: Ht 165.1 cm; Wt 151.1 kg
--- NOTE | 2017-09-16 09:38 | PAT Medication Instructions ---
Service Date Sep 16, 2017. Current Home Medication List Albuterol Hfa (Ventolin Hfa), 2-4 PUFFS INH Q6H PRN for Shortness of Breath Albuterol Sulfate (Albuterol Sulfate), 1 VIAL NEB Q4 PRN for Shortness of Breath Amlodipine (Norvasc), 10 MG PO QAM Aripiprazole (Abilify), 2 TAB PO QPM Carvedilol (Coreg), 12.5 MG PO BID Diazepam (Valium), 5-10 MG PO QPM PRN for Sleep Epinephrine (Epipen), 0.3 MG IM UD PRN for Allergic Reaction Ergocalciferol (Vitamin D 04415 Unit), 50,000 UNIT PO 3XWK Fluticasone Furoate-Vilanterol (Breo Ellipta), 1 PUFF INH QD@08 PRN for SOB/ Wheezing Hydroxyzine Pamoate (Vistaril), 50 MG PO BID PRN for PANIC ATTACKS Lisinopril/Hctz (Zestoretic 20MG/25MG), 1 TAB PO BID Omeprazole (Prilosec), 20 MG PO BID Oxybutynin Chloride (Oxybutynin Chloride ER), 1 TAB PO q Potassium Chloride (Potassium Chloride Er), 1 TAB PO QAM Ranitidine Hcl (Zantac), 75 MG PO QAM Sumatriptan (Imitrex), 1 DOSE NA UD PRN for Migraine Medication Instructions For Your Scheduled Surgery - Hold the following medications 24 hours prior to surgery: Lisinopril/Hctz (Zestoretic 20MG/25MG), 1 TAB PO BID - Hold the following medications the morning of surgery: Ergocalciferol (Vitamin D 65137 Unit), 50,000 UNIT PO 3XWK Oxybutynin Chloride (Oxybutynin Chloride ER), 1 TAB PO qAM Potassium Chloride (Potassium Chloride Er), 1 TAB PO QAM - Take the following medications the morning of surgery with a sip of water: Ranitidine Hcl (Zantac), 75 MG PO QAM Sumatriptan (Imitrex), 1 DOSE NA UD PRN for Migraine (if needed) Omeprazole (Prilosec), 20 MG PO BID Hydroxyzine Pamoate (Vistaril), 50 MG PO BID PRN for PANIC ATTACKS (if needed) Fluticasone Furoate-Vilanterol (Breo Ellipta), 1 PUFF INH QD@08 PRN for SOB/ Wheezing (if needed) Epinephrine (Epipen), 0.3 MG IM UD PRN for Allergic Reaction (if needed) Carvedilol (Coreg), 12.5 MG PO BID Amlodipine (Norvasc), 10 MG PO QAM Albuterol Hfa (Ventolin Hfa), 2-4 PUFFS INH Q6H PRN for Shortness of Breath (if needed) Albuterol Sulfate (Albuterol Sulfate), 1 VIAL NEB Q4 PRN for Shortness of Breath (if needed) - Take the following medications as scheduled the night before surgery: Sumatriptan (Imitrex), 1 DOSE NA UD PRN for Migraine (if needed) Hydroxyzine Pamoate (Vistaril), 50 MG PO BID PRN for PANIC ATTACKS (if needed) Fluticasone Furoate-Vilanterol (Breo Ellipta), 1 PUFF INH QD@08 PRN for SOB/ Wheezing (if needed) Diazepam (Valium), 5-10 MG PO QPM PRN for Sleep (if needed) Epinephrine (Epipen), 0.3 MG IM UD PRN for Allergic Reaction (if needed) Carvedilol (Coreg), 12.5 MG PO BID Aripiprazole (Abilify), 2 TAB PO QPM Albuterol Hfa (Ventolin Hfa), 2-4 PUFFS INH Q6H PRN for Shortness of Breath (if needed) Albuterol Sulfate (Albuterol Sulfate), 1 VIAL NEB Q4 PRN for Shortness of Breath (if needed) If you have any questions please call us at [phone] or [phone] or [phone]
[2017-09-16 10:31] LABS: BASO % 0.7 %; BASO ABS # 0.06 K/uL (0-0.2); EOS % 4.4 %; EOS ABS # 0.39 K/uL (0-0.5); HEMATOCRIT 43.1 % (37-47); HEMOGLOBIN 14.5 g/dL (12.0-16.0); IG# 0.02 K/uL (0.00-0.02); LYMPH % 29.8 %; LYMPH ABS # 2.64 K/uL (1.2-3.4); MEAN CELL VOLUME 85.5 fL (80-100); MEAN CORPUSCULAR HEMOGLOBIN 28.8 pg (25-34); MEAN CORPUSCULAR HGB CONC 33.6 g/dl (32-36); MEAN PLATELET VOLUME 9.6 fL (7.4-10.4); MONO % 7.3 %; MONO ABS # 0.65 K/uL (0.11-0.59); NEUT % 57.6 %; NEUT ABS # 5.09 K/uL (1.4-6.5); PLATELET COUNT 359 K/uL (130-400); RED CELL DISTRIBUTION WIDTH CV 14.3 % (11.5-14.5); RED CELL DISTRIBUTION WIDTH SD 44.2 fL (36.4-46.3); WHITE BLOOD COUNT 8.85 K/uL (4.8-10.8)
[2017-09-16 10:39] LABS: CREATININE 0.75 mg/dl (0.60-1.20); POTASSIUM 4.1 mmol/L (3.5-5.1)
[~2017-09-27] VITALS: Ht 165.1 cm; Wt 151.1 kg
[~2017-09-27 08:56] MED LIST changes: +ABL10 PO; +ATROPINE SULFATE 0.1 MG/ML 5ML SYR IV PRN; -CHOL100010 PO; +CIPROFLOXACIN / D5W 400 MG IV SCH; +DIAZ-165 PO; +DTRSR/10 PO; -EPIN0.3I14 IM; +EPP3/2 IM; +ERGO500037 PO; +EpHEDrine SULFATE INJ 50 MG/ML AMP IV PRN
[2017-09-27 09:26] VITALS: BP 175/88; PULSE 89; TEMP 37; O2SAT 97
--- NOTE | 2017-09-27 09:40 | History & Physical Bridge Note ---
H&P Re-Evaluation Bridge Note: I have examined the patient, reviewed the History & Physical and in the interval since the performance of the History & Physical I have noted the following changes of clinical significance: No changes noted
[2017-09-27] MEDS ORDERED: LACTATED RINGER'S 1000ML 1,000 ML IV SCH (10:00)
[2017-09-27] MEDS ORDERED: MIDAZOLAM HCL 1 MG/ML 2ML VIAL ONE (11:24)
[2017-09-27] MEDS ORDERED: OXYC7.5T65 PO (11:24)
[2017-09-27] MEDS ORDERED: CEFU250T15 PO (11:24)
[2017-09-27] MEDS ORDERED: FENTANYL CITRATE INJ 50 MCG/1 ML 2 ML VIAL ONE ×2 (11:24→11:57)
[2017-09-27] MEDS ORDERED: Cysto-Conray II 17.2% 250ML BOTTLE ONE (11:24)
--- NOTE | 2017-09-27 11:26 | Discharge Instructions ---
Discharge Instructions Date of Service Sep 27, 2017. Admission Reason for Admission: Stones Discharge Discharge Diagnosis / Problem: Stone, Renal Colic Discharge Goals Goal(s): Decrease discomfort, Improve function Activity Recommendations Activity Limitations: resume your previous activity Lifting Limitations: no more than 25 pounds Exercise/Sports Limitations: as tolerated . Instructions / Follow-Up Instructions / Follow-Up May have blood in urine. May have pelvic discomfort. Call if any fevers or chills. Current Hospital Diet Patient's current hospital diet: Discharge Diet Recommended Diet: Regular Diet Procedures Procedures Performed: Cystoscopy Right Ureteroscopy, Bilateral retrograde and right stent. Pending Studies Studies pending at discharge: no Medical Emergencies . Who to Call and When: Medical Emergencies: If at any time you feel your situation is an emergency, please call 911 immediately. . Non-Emergent Contact Non-Emergency issues call your: Primary Care Provider, Urologist Call Non-Emergent contact if: you have a fever, temperature is above 101, temperature is above 101.5, your pain is not controlled, your pain is worsening . . "Provider Documentation" section prepared by Chris Resendiz,. . VTE Core Measure Inpt VTE Proph given/why not?: SCD's
[2017-09-27] MEDS ORDERED: OXYCODONE/ACETAMINOPHEN 7.5-325 TAB PO PRN (11:30)
[2017-09-27] MEDS ORDERED: DEXAMETHASONE SOD INJ 4 MG/ML VIAL ONE (12:05)
[2017-09-27] MEDS ORDERED: LIDOCAINE HCL 2% 2 ML VIAL (20MG/ML) ONE (12:05)
[2017-09-27] MEDS ORDERED: ONDANSETRON INJ 2 MG/ML 2 ML VIAL ONE (12:05)
[2017-09-27] MEDS ORDERED: NEOSTIGMINE METHYLSULFATE 5 MG/5 ML SYR ONE (12:06)
[2017-09-27] MEDS ORDERED: GLYCOPYRROLATE INJ 0.2 MG/ML VIAL ONE (12:06)
[2017-09-27] MEDS ORDERED: PROPOFOL IV EMULSION 10 MG/ML 20 ML VIAL IV ONE (12:06)
[2017-09-27] MEDS ORDERED: SUCCINYLCHOLINE CHLORIDE 20 MG/ML 10 ML VIAL IV ONE (12:08)
[2017-09-27] MEDS ORDERED: ROCURONIUM BROMIDE 10 MG/ML 5 ML VIAL IV ONE (12:08)
--- NOTE | 2017-09-27 12:08 | [facility] Operative Report ---
Operative Report Operative Date Sep 27, 2017. Pre-Operative Diagnosis Renal colic. Stones Post-Operative Diagnosis Same, Right distal stricture. Procedure(s) Performed Cystoscopy with bilateral retrograde pyelogram. Right dilation and ureteroscopy diagonsitic. Right Stent placement. Surgeon Martín Estimated Blood Loss Minimal Findings No obvious obstructions. No lesions or masses. No rightsided stones. Specimens None Drains 6 x 24 Double J on Right. Anesthesia Type General Complication(s) none Disposition Recovery Room / PACU Indications Bilateral Renal colic with right side worse than left. Left sided stones. Description of Procedure Patient was consented and brought back to the operating room. Patient was placed under anesthesia in the supine position and moved to the dorsal lithotomy position. Patient was prepped and draped in the regular sterile fashion. A time out was completed. A 30degree Cystoscope was placed into the bladder and the entire bladder was examined. The UO's were identified. The left followed by the right was cannulized with a catheter and a retrograde pyelogram was completed. A wire was then placed on the right. The flexible ureteroscope was taken over the wire on the right and into the renal pelvis. A distal stricture was noted which was dilated. The scope then bypassed the area. The entire pelvis was examined. No major blockages or stones or lesions or other areas of concern were noted. The entire pelvis was examined, and the scope slowly removed. No masses or lesions were noted. The scope was then removed and the wire left in place. With the wire in place, a 6 x [24] Double J stent was placed. It was confirmed with fluoroscopy. With the stent in place , the bladder was emptied. The scope was removed. The patient was cleaned, aroused from anesthesia, and transferred to the pacu in stable condition having tolerated the procedure well with no complications. I was present and participated in all aspects of the procedure. The patient will be monitored in the PACU until transferred. I attest to the content of the Intraoperative Record and any orders documented therein. Any exceptions are noted below.
[2017-09-27] MEDS: FENTANYL CITRATE INJ 50 MCG/1 ML 2 ML VIAL IV PRN ×2 (12:27→12:32)
--- NOTE | 2017-09-27 12:29 | DIAGNOSTIC IMAGING REPORT ---
RETROGRADE INCLUDES KUB HISTORY: 37 years-old Female B/L CYSTO/LASER/STENT status post right-sided ureteroscopy with stent placement COMPARISON: KUB 08/19/2017 TECHNIQUE: 6 spot fluoroscopic images of the abdomen and pelvis were obtained utilizing 39.7 seconds fluoroscopy time FINDINGS: The first 2 images demonstrates contrast opacification of the left ureter and renal collecting system which appears unremarkable. Subsequent images demonstrate sheath and guidewire of the right ureter with subsequent deployment of a right ureteral stent which appears to be in appropriate positioning. There is suggestion of mild calyceal blunting on the right. No definite collecting system or ureteral filling defects identified. Cholecystectomy clips incidentally noted. IMPRESSION: Status post placement of a right ureteral stent which appears to be in satisfactory positioning. The above report was generated using voice recognition software. It may contain grammatical, syntax or spelling errors. Electronically signed by: Segundo Huertas M.D. 09/27/2017 12:28 PM Dictated Date/Time: 09/27/2017 12:25 PM
[2017-09-27 13:00] VITALS: BP 135/84; PULSE 92; TEMP 37; O2SAT 93
[2017-09-27] MEDS ORDERED: LARYING-O-JET KIT (LTA) ONE (13:14)
[2017-09-27 13:30] VITALS: BP_SYST 159; PULSE 75; TEMP 36.6; O2SAT 94
[2017-09-27] MEDS ORDERED: OXYCODONE/ACETAMINOPHEN 7.5-325 TAB ONE (13:37)
--- NOTE | 2017-09-27 13:51 | Anesthesiology Progress Note ---
Anesthesia Post Op Note Date & Time Sep 27, 2017 at 13:51 Vital Signs Pain Intensity: 6.0 Vital Signs Past 12 Hours Date Time Temp Pulse Resp B/P (MAP) Pulse Ox O2 Delivery O2 Flow Rate FiO2 09/27/17 13:00 37 92 20 135/84 93 Room Air 09/27/17 12:45 36.5 94 16 155/85 96 Room Air 09/27/17 12:35 90 16 149/87 96 Room Air 09/27/17 12:25 95 16 153/99 97 Oxymask 7 09/27/17 12:15 36.8 92 16 187/111 97 Oxymask 7 09/27/17 09:26 37 89 20 175/88 (117) 97 Room Air Notes Mental Status: alert / awake / arousable, participated in evaluation Pt Amnestic to Procedure: Yes Nausea / Vomiting: adequately controlled Pain: adequately controlled Airway Patency, RR, SpO2: stable & adequate BP & HR: stable & adequate Hydration State: stable & adequate Anesthetic Complications: no major complications apparent
[2017-09-27 14:00] VITALS: BP 147/83; PULSE 77; TEMP 36.5; O2SAT 95
== END 2017-09-27 14:25 | disposition home or self-care (01) ==
LOC: C.ACU 08:56
PROVIDERS: ATTEND Urology
DX: N20.0 Calculus of kidney (principal); N13.30 Unspecified hydronephrosis; R31.29 Other microscopic hematuria; M54.12 Radiculopathy, cervical region; F41.8 Other specified anxiety disorders; I10 Essential (primary) hypertension; E66.01 Morbid (severe) obesity due to excess calories; F43.10 Post-traumatic stress disorder, unspecified; K21.0 Gastro-esophageal reflux disease with esophagitis; M54.18 Radiculopathy, sacral and sacrococcygeal region; E53.8 Deficiency of other specified B group vitamins; E55.9 Vitamin D deficiency, unspecified; J45.909 Unspecified asthma, uncomplicated; Z68.43 Body mass index [BMI] 50.0-59.9, adult; Z86.73 Personal history of transient ischemic attack (TIA), and cerebral infarction without residual deficits; Z80.0 Family history of malignant neoplasm of digestive organs; Z79.899 Other long term (current) drug therapy

== ENCOUNTER → 2017-11-07 | Day surgery (SDC) | payer OTHER ==
[2017-10-11 08:11] VITALS: BMI 55.0
[2017-10-31 09:31] LABS: BASO % 0.6 %; BASO ABS # 0.06 K/uL (0-0.2); EOS % 4.2 %; EOS ABS # 0.46 K/uL (0-0.5); HEMATOCRIT 44.1 % (37-47); HEMOGLOBIN 14.7 g/dL (12.0-16.0); IG# 0.03 K/uL (0.00-0.02); LYMPH % 26.9 %; LYMPH ABS # 2.92 K/uL (1.2-3.4); MEAN CELL VOLUME 86.1 fL (80-100); MEAN CORPUSCULAR HEMOGLOBIN 28.7 pg (25-34); MEAN CORPUSCULAR HGB CONC 33.3 g/dl (32-36); MEAN PLATELET VOLUME 9.6 fL (7.4-10.4); MONO % 7.2 %; MONO ABS # 0.78 K/uL (0.11-0.59); NEUT % 60.8 %; PLATELET COUNT 392 K/uL (130-400); RED CELL DISTRIBUTION WIDTH CV 14.2 % (11.5-14.5); RED CELL DISTRIBUTION WIDTH SD 44.5 fL (36.4-46.3); WHITE BLOOD COUNT 10.85 K/uL (4.8-10.8)
--- NOTE | 2017-10-31 09:34 | DIAGNOSTIC IMAGING REPORT ---
CHEST 2 VIEWS ROUTINE CLINICAL HISTORY: 37 years-old Female presenting with PRE OP. TECHNIQUE: PA and lateral views of the chest were obtained. COMPARISON: 10/29/2016. FINDINGS: Cardiomediastinal silhouette normal. Lungs and pleural spaces clear. Osseous structures normal. Cholecystectomy clips noted. IMPRESSION: 1. No acute cardiopulmonary disease. Electronically signed by: Gerson Molina M.D. 10/31/2017 9:32 AM Dictated Date/Time: 10/31/2017 9:32 AM
[2017-10-31 10:09] LABS: CALCIUM 8.9 mg/dl (8.5-10.1); CREATININE 0.73 mg/dl (0.60-1.20); POTASSIUM 3.7 mmol/L (3.5-5.1)
[~2017-11-07] VITALS: Ht 165.1 cm; Wt 151.1 kg
[~2017-11-07] MED LIST changes: +CEPH500C2 PO; +Cysto-Conray II 17.2% 250ML BOTTLE ONE; +DEXAMETHASONE SOD INJ 4 MG/ML VIAL ONE; +FENTANYL CITRATE INJ 50 MCG/1 ML 2 ML VIAL IV PRN; +FENTANYL CITRATE INJ 50 MCG/1 ML 2 ML VIAL ONE; +KETOROLAC TROMETHAMINE 30 MG/ML VIAL ONE; +LABETALOL HCL IV 5 MG/ML 20ML IV ONE; +LABETALOL HCL IV 5 MG/ML 20ML IV PRN; +LACTATED RINGER'S 1000ML 1,000 ML IV SCH; +LARYING-O-JET KIT (LTA) ONE; +LIDOCAINE HCL 2% 2 ML VIAL (20MG/ML) ONE; +MIDAZOLAM HCL 1 MG/ML 2ML VIAL ONE; +NURSING VERBAL MED ORDER ONE; +ONDANSETRON INJ 2 MG/ML 2 ML VIAL IV PRN; +ONDANSETRON INJ 2 MG/ML 2 ML VIAL ONE; +OXYC7.5T65 PO; +OXYCODONE/ACETAMINOPHEN 7.5-325 TAB PO PRN; +PHEN-775 PO; +PROPOFOL IV EMULSION 10 MG/ML 20 ML VIAL IV ONE; +ROCURONIUM BROMIDE 10 MG/ML 5 ML VIAL IV ONE; +SUCCINYLCHOLINE CHLORIDE 20 MG/ML 10 ML VIAL IV ONE; +TAMS0.4C38 PO
--- NOTE | 2017-11-07 11:16 | Discharge Instructions ---
Discharge Instructions Date of Service Nov 07, 2017. Admission Reason for Admission: Stones Discharge Discharge Diagnosis / Problem: Stone Discharge Goals Goal(s): Decrease discomfort, Improve function Activity Recommendations Activity Limitations: resume your previous activity Lifting Limitations: gradually increase as tolerated Exercise/Sports Limitations: gradually increase as tolerated Shower/Bathe: no limitations . Instructions / Follow-Up Instructions / Follow-Up May have blood in urine. May have pelvic discomfort. Call if any fevers or chills. Stent removal by string in office. Current Hospital Diet Patient's current hospital diet: Discharge Diet Recommended Diet: Regular Diet Procedures Procedures Performed: Cystoscopy, Right stent removal, left ureteroscopy and stone treatment Pending Studies Studies pending at discharge: no Medical Emergencies . Who to Call and When: Medical Emergencies: If at any time you feel your situation is an emergency, please call 911 immediately. . Non-Emergent Contact Non-Emergency issues call your: Primary Care Provider, Urologist Call Non-Emergent contact if: you have a fever, temperature is above 101, temperature is above 101.5, your pain is not controlled, your pain is worsening , your pain is unusual for you . . "Provider Documentation" section prepared by Chris Resendiz. .
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
[2017-11-07 11:31] VITALS: BP 173/97; PULSE 85; TEMP 36.8; O2SAT 97; Ht 165.1 cm; Wt 151.1 kg
--- NOTE | 2017-11-07 14:08 | [facility] Operative Report ---
Operative Report Operative Date Nov 07, 2017. Pre-Operative Diagnosis Left Stone, Right Distal Stricture Post-Operative Diagnosis Same Procedure(s) Performed Cystoscopy, Right Stent removal. Left Ureteroscopy, Stone basket Extraction. laser lithotripsy, Stent. Surgeon Martín Estimated Blood Loss Minimal Findings Small stones in left pelvis. Specimens Stone Drains 6 Fr Multilength Anesthesia Type General Complication(s) none Disposition Recovery Room / PACU Indications Stone on left. Had dilation and ureteroscopy of right. Stent removal and treatment of left stones. Risks and benefits discussed. Description of Procedure Patient was consented and brought back to the operating room. Patient was placed under anesthesia in the supine position and moved to the dorsal lithotomy position. Patient was prepped and draped in the regular sterile fashion. A time out was completed. A 30degree Cystoscope was placed into the bladder and the entire bladder was examined. The UO's were identified. The right stent was visualized and grasped and removed. The left was cannulized with a catheter and a retrograde pyelogram was completed. A wire was then placed, followed by a ureteral access sheath, and a safety wire. At this point the flexible scope was placed. The small stones and calcifications were discovered. They was pulverized to dust and small fragments with the laser. A fragment was basketed and sent for analysis. The stone was completely treated. Others smaller stones were destroyed. At this point, the wire was left in place and the scope and sheath slowly removed. No fragments or lesions were noted. The scope was removed. With the wire in place, a 6 Cuban Multilength Double J stent was placed. It was confirmed with fluoroscopy. With the stent in place, the bladder was emptied. The scope was removed. The patient was cleaned, aroused from anesthesia, and transferred to the pacu in stable condition having tolerated the procedure well with no complications. I was present and participated in all aspects of the procedure. The patient will be monitored in the PACU until transferred. WIll leave stent on a string to facilitate removal in office. I attest to the content of the Intraoperative Record and any orders documented therein. Any exceptions are noted below.
--- NOTE | 2017-11-07 14:23 | DIAGNOSTIC IMAGING REPORT ---
RETROGRADE INCLUDES KUB CLINICAL HISTORY: 37 years-old Female presenting with REMOVAL OF RT STENT AND LEFT STENT INSERTION AND LASER LITHO. TECHNIQUE: 4 fluoroscopic spot image(s) obtained as part of an intraoperative procedure. COMPARISON: 09/27/2017. FINDINGS/IMPRESSION: The left renal collecting system is opacified with contrast and is nondilated. Subsequently 2 guidewires were passed, one into the upper pole moiety and one into the lower pole moiety. A left ureteral stent was then placed. Please see surgical report for further details. Fluoroscopy dosage (mGy): 37.4. Fluoroscopy time: 66.8 seconds. Number of fluoroscopic spot images: 4. Electronically signed by: Gerson Molina M.D. 11/07/2017 2:22 PM Dictated Date/Time: 11/07/2017 2:20 PM
--- NOTE | 2017-11-07 15:45 | Anesthesiology Progress Note ---
Anesthesia Post Op Note Date & Time Nov 07, 2017 at 15:44 Vital Signs Pain Intensity: 3 Vital Signs Past 12 Hours Date Time Temp Pulse Resp B/P (MAP) Pulse Ox O2 Delivery O2 Flow Rate FiO2 11/07/17 15:37 36.0 84 12 143/86 95 Room Air 11/07/17 15:30 Room Air 11/07/17 15:20 82 15 168/101 92 Room Air 11/07/17 15:10 83 15 158/93 94 Room Air 11/07/17 15:00 80 19 159/103 93 Room Air 11/07/17 14:50 75 20 179/110 100 Oxymask 10 11/07/17 14:40 76 19 185/108 99 Oxymask 10 11/07/17 14:30 77 19 175/103 98 Oxymask 10 11/07/17 14:21 36.0 78 16 162/101 99 Oxymask 10 11/07/17 11:31 36.8 85 20 173/97 (122) 97 Room Air Notes Mental Status: alert / awake / arousable, participated in evaluation Pt Amnestic to Procedure: Yes Nausea / Vomiting: adequately controlled Pain: adequately controlled Airway Patency, RR, SpO2: stable & adequate BP & HR: stable & adequate, see Notes Hydration State: stable & adequate Anesthetic Complications: no major complications apparent The patient had elevated blood pressure in the PACU. She was initially treated with labetalol. The patient then noted that her bladder was full. Once she was able to urinate, her blood pressure came down. She is awake, comfortable, and otherwise stable.
[2017-11-07 15:50] VITALS: BP 151/81; PULSE 69; TEMP 37.1; O2SAT 95
[2017-11-07 16:20] VITALS: BP 162/94; PULSE 88; TEMP 36.8; O2SAT 97
== END | disposition home or self-care (01) ==
LOC: C.ACU 10:54
PROVIDERS: ATTEND Urology
DX: N20.0 Calculus of kidney (principal); N23 Unspecified renal colic; K21.9 Gastro-esophageal reflux disease without esophagitis; K76.0 Fatty (change of) liver, not elsewhere classified; J45.909 Unspecified asthma, uncomplicated; F31.9 Bipolar disorder, unspecified; F43.10 Post-traumatic stress disorder, unspecified; E11.9 Type 2 diabetes mellitus without complications; E66.01 Morbid (severe) obesity due to excess calories; I10 Essential (primary) hypertension; F41.9 Anxiety disorder, unspecified; Z87.81 Personal history of (healed) traumatic fracture; Z87.442 Personal history of urinary calculi; Z87.01 Personal history of pneumonia (recurrent); Z90.49 Acquired absence of other specified parts of digestive tract; Z90.710 Acquired absence of both cervix and uterus; Z91.030 Bee allergy status; Z91.013 Allergy to seafood; Z91.018 Allergy to other foods; Z91.048 Other nonmedicinal substance allergy status; Z88.8 Allergy status to other drugs, medicaments and biological substances; Z85.41 Personal history of malignant neoplasm of cervix uteri

== ENCOUNTER 2017-11-08 00:13 | Emergency (ER) | payer OTHER ==
[~2017-11-08] VITALS: Ht 165.1 cm; Wt 152.6 kg
[~2017-11-08 00:13] MED LIST changes: -ATROPINE SULFATE 0.1 MG/ML 5ML SYR IV PRN; -CIPROFLOXACIN / D5W 400 MG IV SCH; -Cysto-Conray II 17.2% 250ML BOTTLE ONE; -DEXAMETHASONE SOD INJ 4 MG/ML VIAL ONE; -EpHEDrine SULFATE INJ 50 MG/ML AMP IV PRN; -FENTANYL CITRATE INJ 50 MCG/1 ML 2 ML VIAL IV PRN; -FENTANYL CITRATE INJ 50 MCG/1 ML 2 ML VIAL ONE; -KETOROLAC TROMETHAMINE 30 MG/ML VIAL ONE; -LABETALOL HCL IV 5 MG/ML 20ML IV ONE; -LABETALOL HCL IV 5 MG/ML 20ML IV PRN; -LACTATED RINGER'S 1000ML 1,000 ML IV SCH; -LARYING-O-JET KIT (LTA) ONE; -LIDOCAINE HCL 2% 2 ML VIAL (20MG/ML) ONE; -MIDAZOLAM HCL 1 MG/ML 2ML VIAL ONE; -NURSING VERBAL MED ORDER ONE; -ONDANSETRON INJ 2 MG/ML 2 ML VIAL IV PRN; -ONDANSETRON INJ 2 MG/ML 2 ML VIAL ONE; -OXYCODONE/ACETAMINOPHEN 7.5-325 TAB PO PRN; -PROPOFOL IV EMULSION 10 MG/ML 20 ML VIAL IV ONE; -ROCURONIUM BROMIDE 10 MG/ML 5 ML VIAL IV ONE; -SUCCINYLCHOLINE CHLORIDE 20 MG/ML 10 ML VIAL IV ONE
[2017-11-08 00:20] VITALS: TEMP 37.1; Ht 165.1 cm; Wt 152.6 kg
[2017-11-08] MEDS ORDERED: OXYCODONE/ACETAMINOPHEN 5-325 TAB PO ONE (01:15)
[2017-11-08 01:48] VITALS: BP 167/89; PULSE 88; O2SAT 96
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
== END 2017-11-08 02:00 | disposition home or self-care (01) ==
LOC: C.EDB 00:14 → C.EDC 02:00
DX: T83.122A Displacement of indwelling ureteral stent, initial encounter (principal); Y73.2 Prosthetic and other implants, materials and accessory gastroenterology and urology devices associated with adverse incidents; J45.909 Unspecified asthma, uncomplicated; E11.9 Type 2 diabetes mellitus without complications; I10 Essential (primary) hypertension; F31.9 Bipolar disorder, unspecified; Z91.030 Bee allergy status; Z91.018 Allergy to other foods; Z79.899 Other long term (current) drug therapy; Z91.013 Allergy to seafood; Z88.8 Allergy status to other drugs, medicaments and biological substances; Z91.048 Other nonmedicinal substance allergy status; Z83.3 Family history of diabetes mellitus; Z83.79 Family history of other diseases of the digestive system; Z82.49 Family history of ischemic heart disease and other diseases of the circulatory system; Z84.1 Family history of disorders of kidney and ureter; Z82.0 Family history of epilepsy and other diseases of the nervous system

== ENCOUNTER 2018-03-10 13:30 | Emergency (ER) | payer OTHER ==
[~2018-03-10] VITALS: Ht 165.1 cm; Wt 153.3 kg
[~2018-03-10 13:30] MED LIST changes: -AMLO-114 PO; +AMLO10TA3 PO; -CARV12.5 PO; +CARV12.52 PO; -DIAZ-165 PO; +DIAZ5TAB3 PO; +OXYC-90 PO; -OXYC7.5T65 PO; -PHEN-775 PO; -POTA-74 PO; +POTA1CAP2 PO; +RANI1TAB75 PO; -RANITAB33 PO; -SUMA20SP8; +SUMA5SPR5 NAE
[2018-03-10 13:36] VITALS: TEMP 36.7; Ht 165.1 cm; Wt 153.3 kg
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
[2018-03-10] MEDS ORDERED: ONDANSETRON INJ 2 MG/ML 2 ML VIAL IV STA (14:09)
[2018-03-10] MEDS ORDERED: SODIUM CHLORIDE 0.9% 500ML 500 ML IV STA (14:09)
[2018-03-10 14:18] VITALS: O2SAT 97
[2018-03-10 14:43] LABS: BASO % 0.7 %; BASO ABS # 0.07 K/uL (0-0.2); EOS % 1.6 %; EOS ABS # 0.16 K/uL (0-0.5); HEMATOCRIT 41.2 % (37-47); HEMOGLOBIN 13.7 g/dL (12.0-16.0); IG# 0.03 K/uL (0.00-0.02); LYMPH ABS # 2.06 K/uL (1.2-3.4); MEAN CELL VOLUME 85.7 fL (80-100); MEAN CORPUSCULAR HEMOGLOBIN 28.5 pg (25-34); MEAN CORPUSCULAR HGB CONC 33.3 g/dl (32-36); MEAN PLATELET VOLUME 10.1 fL (7.4-10.4); MONO % 8.9 %; MONO ABS # 0.92 K/uL (0.11-0.59); NEUT % 68.5 %; NEUT ABS # 7.08 K/uL (1.4-6.5); PLATELET COUNT 331 K/uL (130-400); RED CELL DISTRIBUTION WIDTH CV 14.1 % (11.5-14.5); RED CELL DISTRIBUTION WIDTH SD 43.8 fL (36.4-46.3); WHITE BLOOD COUNT 10.32 K/uL (4.8-10.8)
--- NOTE | 2018-03-10 14:52 | DIAGNOSTIC IMAGING REPORT ---
CHEST ONE VIEW PORTABLE CLINICAL HISTORY: severe hypertension COMPARISON STUDY: 10/31/2017 FINDINGS: The bones soft tissues and hemidiaphragms are normal. The cardiomediastinal silhouette is normal. The lungs are clear. The pulmonary vasculature is normal. IMPRESSION: Negative chest. The above report was generated using voice recognition software. It may contain grammatical, syntax or spelling errors. Electronically signed by: Que Callejas M.D. 03/10/2018 2:51 PM Dictated Date/Time: 03/10/2018 2:50 PM
[2018-03-10 14:56] LABS: PTT PATIENT 26.3 SECONDS (21.0-31.0)
[2018-03-10 15:18] LABS: ALKALINE PHOSPHATASE 106 U/L (45-117); ALT/SGPT 24 U/L (12-78); AST/SGOT 23 U/L (15-37); BLOOD UREA NITROGEN 12 mg/dl (7-18); CALCIUM 8.6 mg/dl (8.5-10.1); CARBON DIOXIDE 25 mmol/L (21-32); CREATININE 0.68 mg/dl (0.60-1.20); GLUCOSE 97 mg/dl (70-99); LIPASE 166 U/L (73-393); POTASSIUM 3.7 mmol/L (3.5-5.1); SODIUM 140 mmol/L (136-145); TOTAL PROTEIN 6.5 gm/dl (6.4-8.2)
[2018-03-10] MEDS ORDERED: CYNI1000 IM (15:19)
[2018-03-10] MEDS ORDERED: ARIP20TA4 PO (15:19)
[2018-03-10] MEDS ORDERED: PHEN-774 PO (15:19)
[2018-03-10] MEDS ORDERED: CYCL10TA6 PO (15:19)
[2018-03-10] MEDS ORDERED: GI COCKTAIL PO STA (16:40)
[2018-03-10] MEDS ORDERED: LIDOCAINE HCL 2% VISC SOLN 20 ML UDC ONE (16:44)
[2018-03-10] MEDS ORDERED: ALUMINUM/MAGNESIUM SUSP 30 ML UDC ONE (16:44)
[2018-03-10] MEDS ORDERED: CARV3.122 PO (17:42)
[2018-03-10 18:15] VITALS: BP 152/99; PULSE 87; O2SAT 98
== END 2018-03-10 18:15 | disposition home or self-care (01) ==
LOC: C.EDB 13:31
DX: I10 Essential (primary) hypertension (principal); R42 Dizziness and giddiness; R11.0 Nausea; F31.9 Bipolar disorder, unspecified; E11.9 Type 2 diabetes mellitus without complications; Z91.030 Bee allergy status; Z91.013 Allergy to seafood; Z91.018 Allergy to other foods

== ENCOUNTER 2020-04-27 22:38 | Inpatient (IN) ==
[2020-04-27] MEDS ORDERED: ASPIRIN CHEW 324 MG PO STA (22:53)
[2020-04-27] MEDS ORDERED: NITROGLYCERIN SL 0.4 MG/TAB TAB SL PRN (22:53)
[2020-04-27] MEDS ORDERED: NITROGLYCERIN 2% OINTMENT 30GM TUBE EXT STA (22:55)
[2020-04-27 23:08] LABS: Basophils # (auto) 0.06 K/uL (0-0.2); Basophils % (auto) 0.4 %; Eosinophils # (auto) 0.34 K/uL (0-0.5); Eosinophils % (auto) 2.2 %; Hemoglobin 14.9 g/dL (12.0-16.0); Immature Granulocytes # (auto) 0.06 K/uL (0.00-0.02); Immature Granulocytes % (auto) 0.4 %; Lymphocytes # (auto) 3.15 K/uL (1.2-3.4); Lymphocytes % (auto) 20.7 %; Mean Corpuscular Hemoglobin 29.2 pg (25-34); Mean Corpuscular Hgb Conc 33.1 g/dL (32-36); Mean Corpuscular Volume 88.1 fL (80-100); Mean Platelet Volume 9.8 fL (7.4-10.4); Monocytes # (auto) 1.06 K/uL (0.11-0.59); Neutrophils # (auto) 10.54 K/uL (1.4-6.5); Neutrophils % (auto) 69.3 %; Platelet Count 431 K/uL (130-400); RDW Coefficient of Variation 13.9 % (11.5-14.5); RDW Standard Deviation 44.9 fL (36.4-46.3); Red Blood Count 5.11 M/uL (4.2-5.4); White Blood Count 15.21 K/uL (4.8-10.8)
--- NOTE | 2020-04-27 23:21 | Emergency Department Note ---
History of Present Illness General Chief complaint: Chest Pain Stated complaint: CHEST PAIN Time Seen by Provider: 04/27/20 22:44 Source: patient Mode of arrival: ambulatory Limitations: no limitations History of Present Illness Maximum Pain Intensity: 9 This patient is a 39-year-old female who presents to the emergency department for evaluation of chest pain and elevated blood pressure. The patient reports that she was sitting on the couch doing a puzzle when she developed pain in the left chest with radiation into the left neck and arm. She checked her blood pressure and found it to be elevated. She reports she developed a nosebleed and diaphoresis. She called her primary care provider and they recommended that she come here. She had some associated nausea and shortness of breath. She is still having pain and rates her discomfort a 9/10. She has a history of hypertension and states she has had a hard time controlling it recently. She reports she had an admission at [facility] this month. She reports she was seen here yesterday and had a work-up and was told she should return for a heart cath if she has any further symptoms. She denies any history of cardiac disease. She does report she has a father with atrial fibrillation and her paternal grandmother had an [place]. Home Medications Home Medications Medication Instructions Recorded Confirmed Type amlodipine 10 mg tablet 10 mg PO DAILY #90 tab 03/19/20 04/27/20 Rx cholecalciferol (vitamin D3) 1,250 1,250 mcg PO WEEKLY #12 cap 03/19/20 04/27/20 Rx mcg (50,000 unit) capsule clonidine HCl 0.2 mg tablet 0.2 mg PO TID #90 tab 03/19/20 04/27/20 Rx lisinopril 40 mg tablet 40 mg PO QAM #90 tab 03/19/20 04/27/20 Rx epinephrine [EpiPen 2-Martin] 0.3 mg IM Q10M PRN 04/02/20 04/27/20 History fluticasone propionate [Flonase 1 spray INTNAS DAILY PRN 04/02/20 04/27/20 History Allergy Relief] furosemide 40 mg tablet 40 mg PO BID #60 tab 04/02/20 04/27/20 Rx gabapentin 300 mg PO BID 04/02/20 04/27/20 History loratadine [Claritin RediTabs] 10 mg PO QPM 04/02/20 04/27/20 History labetalol 200 mg tablet 200 mg PO BID #60 tab 04/18/20 04/27/20 Rx amoxicillin 875 mg-potassium 1 tab PO BID #20 tab 04/22/20 04/27/20 Rx clavulanate 125 mg tablet omeprazole 20 mg PO QAM 04/26/20 04/27/20 History Allergies Allergy/AdvReac Type Severity Reaction Status Date / Time bee venom protein (honey bee) Allergy Severe Anaphylaxis Verified 04/27/20 23:27 clams Allergy Severe Anaphylaxis Verified 04/27/20 23:27 coconut Allergy Severe rash if Verified 04/27/20 23:27 touched, throat closes if eaten mussels Allergy Severe Anaphylaxis Verified 04/27/20 23:27 oyster extract Allergy Severe Anaphylaxis Verified 04/27/20 23:27 scallops Allergy Severe Anaphylaxis Verified 04/27/20 23:27 lamotrigine Allergy Intermediate itching, Verified 04/27/20 23:27 rash,sob(to generic) can use brand name copper Allergy Mild rash Verified 04/27/20 23:27 nickel Allergy Mild rash Verified 04/27/20 23:27 pineapple Allergy Mild MOUTH RASH Verified 04/27/20 23:27 Past Med/Surg History Medical History Anxiety Bipolar disorder Bulging of cervical intervertebral disc ROM WNL Cervical radiculopathy at C7 Chronic bronchitis SUMMER MONTHS Fatty liver Fibromyalgia GERD (gastroesophageal reflux disease) History of kidney stones Hypertension Moderate recurrent major depression Morbid obesity with BMI of 50.0-59.9, adult Neuropathy Osteoarthritis Ovarian cyst Post traumatic stress disorder Primary fibromyalgia syndrome Rash and nonspecific skin eruption Reflux esophagitis Seasonal allergies Sinus infection Ventral hernia Surgical History History of ankle surgery left x2 History of arthroscopy of left shoulder History of bilateral tubal ligation History of cholecystectomy History of colonoscopy with polypectomy History of endometrial ablation History of esophagogastroduodenoscopy (EGD) History of hysterectomy History of knee surgery BL History of removal of ureteral stent History of surgery removal of kylee stuck inside throat History of surgical removal of ganglion cyst right wrist History of tonsillectomy History of wisdom tooth extraction S/P cystoscopy with ureteral stent placement Status post myringotomy with tube placement of both ears Status post wrist surgery LEFT Family History Grandmother (Maternal) Family history of reaction to anesthesia PONV, RESPIRATORY ISSUES Grandmother Colon cancer Father Heart disease Inflammatory bowel disease Mother Inflammatory bowel disease Uncle Colon cancer Grandmother (Paternal) Myocardial infarction Grandfather (Paternal) Myocardial infarction Prostate cancer Denies family history of Ovarian cancer Breast cancer Social History Smoking Status: Never smoker Tobacco Type: Cigars Second Hand Exposure: No; Hx Alcohol Use: Yes Alcohol type: wine Hx Substance Use: No Preferred Language: Romansh Communication Ability: Effective Visual Impairment: No Limitations Hearing Ability: Normal Kiln Tester Required: No Beliefs That Will Affect Care: None Current Living Situation: Spouse and Family Current Living Situation Comment: Lives with , children and sister current occupational status: employed Feels Safe at Home: Yes Dental Care, Regularly: Yes Physical Activity Frequency: Daily Physical Activity Frequency Comment: SWIMMING Seatbelt Use: never Sunscreen Use: Yes Assistive Devices: None Review of Systems A total of 10 systems reviewed and were otherwise negative Physical Exam Vital Signs Vital Signs - 24 hr 04/27/20 22:40 04/27/20 22:54 04/27/20 23:00 Temperature 36.8 C Temperature Source Oral Pulse Rate 107 H 98 H Respiratory Rate 24 36 H Respiratory Effort / Characteristics Non-Labored Spontaneous Short of Breath Respiratory Depth Normal Normal Blood Pressure 184/120 H 192/116 H Blood Pressure Mean 141 159 Blood Pressure Position Sitting Pulse Oximetry 94 96 Oxygen Delivery Method Room Air Room Air Sepsis Recent Fever Within 48 Hours No Sepsis New/Unexplained Change in Mental Status No Sepsis Action Taken by Nursing No Action Required 04/27/20 23:31 04/28/20 00:01 04/28/20 00:31 Temperature Temperature Source Pulse Rate 94 H 97 H 92 H Respiratory Rate 31 H 23 24 Respiratory Effort / Characteristics Respiratory Depth Blood Pressure 210/98 H 210/108 H 181/91 H Blood Pressure Mean 134 132 103 Blood Pressure Position Pulse Oximetry 94 96 96 Oxygen Delivery Method Room Air Room Air Room Air Sepsis Recent Fever Within 48 Hours Sepsis New/Unexplained Change in Mental Status Sepsis Action Taken by Nursing 04/28/20 01:07 04/28/20 01:31 04/28/20 02:01 Temperature Temperature Source Pulse Rate 86 89 91 H Respiratory Rate 23 18 18 Respiratory Effort / Characteristics Respiratory Depth Blood Pressure 164/98 H 168/89 H 142/92 H Blood Pressure Mean 132 122 113 Blood Pressure Position Pulse Oximetry 95 96 Oxygen Delivery Method Room Air Room Air Sepsis Recent Fever Within 48 Hours Sepsis New/Unexplained Change in Mental Status Sepsis Action Taken by Nursing 04/28/20 02:30 Temperature Temperature Source Pulse Rate 92 H Respiratory Rate 25 H Respiratory Effort / Characteristics Respiratory Depth Blood Pressure 163/100 H Blood Pressure Mean 112 Blood Pressure Position Pulse Oximetry Oxygen Delivery Method Sepsis Recent Fever Within 48 Hours Sepsis New/Unexplained Change in Mental Status Sepsis Action Taken by Nursing VITALS: Vitals are noted on the nurse's note and reviewed by myself. GENERAL: This is a 39-year-old female, anxious appearing, nondiaphoretic, well- developed well-nourished. SKIN: The skin was without rashes. EARS: External auditory canals clear, tympanic membranes pearly jurado without erythema or effusion bilaterally. EYES: Pupils equal round and reactive to light and accommodation. NOSE: Patent, turbinates without inflammation or discharge. MOUTH: Mucous membranes moist. Tonsils are not enlarged. Pharynx without erythema or exudate. NECK: Supple without nuchal rigidity. No lymphadenopathy. HEART: Regular rate and rhythm without murmurs gallops or rubs. LUNGS: Clear to auscultation bilaterally without wheezes, rales or rhonchi. No retractions or accessory muscle use. ABDOMEN: Positive bowel sounds x 4. Soft, nontender to palpation. NEURO: Patient was alert and oriented to person place and time. Course Administered Medications Labetalol HCl (Labetalol Hcl Iv 5 Mg/Ml 20ml) 10 mg IV Q4H PRN PRN Reason: Hypertension Stop: 05/28/20 04:37 Last Admin: 04/28/20 05:01 Dose: 10 mg Documented by: [id number] Cosigned by: [id number] Discontinued Medications Aspirin (Aspirin Chew 324 Mg) 324 mg PO NOW STA Stop: 04/27/20 22:54 Last Admin: 04/27/20 23:06 Dose: 324 mg Documented by: [id number] Labetalol HCl (Labetalol Hcl Iv 5 Mg/Ml 20ml) 20 mg IV ONCE STA Stop: 04/28/20 00:09 Last Admin: 04/28/20 00:17 Dose: 20 mg Documented by: [id number] Cosigned by: [id number] Nitroglycerin (Nitroglycerin 2% Ointment 30gm Tube) 1 inch EXT NOW STA Stop: 04/27/20 22:56 Last Admin: 04/27/20 23:06 Dose: 1 inch Documented by: [id number] Medical Decision Making Differential Diagnosis Differential diagnosis includes acute coronary syndrome, pulmonary embolism, pneumothorax, pericarditis, myocarditis, endocarditis, anxiety, musculoskeletal pain, GERD, costochondritis, pneumonia, among others. Medical Records Attestation: I reviewed the patient's medical records. Home Medications Current Medication List: was personally reviewed by me Laboratory Data Attestation: I reviewed the patient's lab results. Result diagrams: 04/27/20 22:50 04/27/20 22:50 Lab Results 04/27/20 04/27/20 Range/Units 22:50 22:50 WBC 15.21 H (4.8-10.8) K/uL RBC 5.11 (4.2-5.4) M/uL Hgb 14.9 (12.0-16.0) g/dL Hct 45.0 (37-47) % MCV 88.1 (80-100) fL MCH 29.2 (25-34) pg MCHC 33.1 (32-36) g/dL RDW Std Deviation 44.9 (36.4-46.3) fL RDW Coeff of Sarah 13.9 (11.5-14.5) % Plt Count 431 H (130-400) K/uL MPV 9.8 (7.4-10.4) fL Immature Gran % (Auto) 0.4 % Neut % (Auto) 69.3 % Lymph % (Auto) 20.7 % Pratt % (Auto) 7.0 % Eos % (Auto) 2.2 % Baso % (Auto) 0.4 % Neut # (Auto) 10.54 H (1.4-6.5) K/uL Lymph # (Auto) 3.15 (1.2-3.4) K/uL Pratt # (Auto) 1.06 H (0.11-0.59) K/uL Eos # (Auto) 0.34 (0-0.5) K/uL Baso # (Auto) 0.06 (0-0.2) K/uL Immature Gran # (Auto) 0.06 H (0.00-0.02) K/uL Sodium 141 (136-145) mmol/L Potassium 3.5 (3.5-5.1) mmol/L Chloride 107 (98-107) mmol/L Carbon Dioxide 25 (21-32) mmol/L Anion Gap 8.0 (3-11) BUN 15 (7-18) mg/dl Creatinine 0.87 (0.6-1.2) mg/dl Est Cr Clr Drug Dosing 135.3 ml/min Est GFR ( Amer) 97.9 Est GFR (Non-Af Amer) 84.5 BUN/Creatinine Ratio 17.2 (10-20) Glucose 112 H (70-99) mg/dl Calcium 9.6 (8.5-10.1) mg/dl Total Bilirubin 0.2 (0.2-1) mg/dl AST 25 (15-37) U/L ALT 40 (12-78) U/L Alkaline Phosphatase 127 H (45-117) U/L Troponin I < 0.015 (0-0.045) ng/ml Total Protein 7.4 (6.4-8.2) gm/dl Albumin 3.2 L (3.4-5.0) gm/dl Globulin 4.2 H (2.5-4.0) gm/dl Albumin/Globulin Ratio 0.8 L (0.9-2) Imaging Data Attestation: I personally reviewed and interpreted this imaging study as follows: My Impression: CHEST 1 VIEW: No pulmonary consolidation or fluid overload. Normal cardiac silhouette. ECG Data Attestation: I personally reviewed and interpreted this ECG as follows: Rate (beats per minute): 88 Rhythm: + normal sinus ECG Intervals/blocks: + Normal QRS ECG Colton: + Left axis deviation ECG ST segments: + Nonspecific ST abnormalities Change: no significant change Blood Pressure Blood Pressure Findings: Elevated blood pressure Blood Pressure Disposition: further management by hospitalist RASHMI Cardona Continuous campus wellness coordinator: Order was placed for continuous campus wellness coordinator. Patient was placed on the campus wellness coordinator. Patient was noted to be in normal sinus rhythm at an initial rate of 98 bpm. The patient is a 39-year-old female who presents today complaining of hypertension and chest pain. Labs revealed a leukocytosis of 15,000, no anemia or concerning electrolyte abnormalities. Troponin was not elevated. Patient had a CTA of her chest yesterday. EKG is unchanged. Patient has had multiple episodes of severe chest pain. Pain did improve with nitroglycerin. She was given an dose of IV labetalol for her blood pressure with some improvement. Venus vargas has a long history of uncontrolled hypertension and is on multiple medications at home for this. The case was discussed with the [facility] hospitalist service, who agreed to evaluate patient for further care of hypertensive urgency. Impression & Plan Hypertensive urgency, Left-sided chest pain Discharge Plan Visit Data Chief Complaint: Chest Pain Stated Complaint: CHEST PAIN ED Provider: Oleksandr Gonsalez ED Midlevel Provider: Terri Estevez Discharge Problem: Hypertensive urgency, Left-sided chest pain Patient Disposition: Admitted As Inpatient Discharge Instructions Interventions: ED Discharge Assessment Last Done: 04/28/20 04:20
[2020-04-27 23:25] LABS: Alanine Aminotransferase 40 U/L (12-78); Albumin Level 3.2 gm/dl (3.4-5.0); Aspartate Aminotransferase 25 U/L (15-37); BUN Creatinine Ratio 17.2 (10-20); Blood Urea Nitrogen 15 mg/dl (7-18); Calcium 9.6 mg/dl (8.5-10.1); Carbon Dioxide 25 mmol/L (21-32); Chloride 107 mmol/L (98-107); Creatinine Clr Calc Pharmacy 135.3 ml/min; Est GFR (African American) 97.9; Est GFR (Non-African American) 84.5; Glucose 112 mg/dl (70-99); Potassium 3.5 mmol/L (3.5-5.1); Sodium 141 mmol/L (136-145)
[2020-04-27 23:30] LABS: Albumin Globulin Ratio 0.8 (0.9-2); Alkaline Phosphatase 127 U/L (45-117); Bilirubin,Total 0.2 mg/dl (0.2-1); Globulin 4.2 gm/dl (2.5-4.0); Total Protein 7.4 gm/dl (6.4-8.2); Troponin I < 0.015 ng/ml (0-0.045)
[2020-04-28] MEDS ORDERED: LABETALOL HCL IV 5 MG/ML 20ML IV STA (00:08)
--- NOTE | 2020-04-28 02:57 | History & Physical Report ---
Date of Service April 28, 2020 Assessment & Plan (1) Chest pain: Troponin x 1 negative, CP improved with BP control. Negative dobutamine stress echo on 04/17/20 -Telemetry monitoring -Nitro PRN -Trend troponin q 8 hours x 3 -BP control Present on Admission?: Yes (2) Hypertension: Resistant, patient currently on 4 medications with poor control and frequent episodes of HTN crisis. Recently admitted to [facility] for HTN urgency. Had renal doppler there which was negative for KARIME or fibromuscular dysplasia. Electrolytes are WNL. Patient states she is compliant with her medications and does not miss doses. She denies use of stimulants or recreational drugs. She certainly is obese but states that her weight has been stable for the last 10 years -Continue home medications -Check urinary metanephrines -Monitor Present on Admission?: Yes (3) Benign meningioma of brain: Noted Present on Admission?: Yes (4) Morbid obesity: Patient with BMI = 58.3. Would benefit from weight loss Present on Admission?: Yes (5) Primary fibromyalgia syndrome: Chronic -Continue Gabapentin History of Present Illness Chief Complaint: chest pain Primary Care Provider: Lalo Qureshi MD 39yo C female presenting with acute onset chest pain. Patient was sitting in her home doing a puzzle when she developed severe 10/10 chest pain - left sided with radiation to her neck, left arm numbness, nausea and sweating. Patient then developed a nosebleed and came to the ER. Has been having a difficult time controlling her blood pressure. She is currently on 4 blood pressure medications (Amlodipine 10, Lisinopril 40, Labetalol 200 BID and Clonidine 0.2 TID). She states that she never misses her medication (specifically states she never misses her Clonidine). She has not been taking OTC medications, does not drink caffeine or energy drinks. She does not smoke or drink EtOH to excess. She reports an acute increase in her blood pressure starting March 17, uncertain why. She was admitted to [facility] over Labor Day weekend for HTN crisis. Reports occasional nose bleeds recently. Reports frequent episodes of chest discomfort, occasional episodes of blurry vision and BHATTI when BP is high. Was seen in the ER yesterday by Dr. Padilla for similar, CP with elevated BP. Was told to return if she develops CP again. Had negative dobutamine stress test on 04/17/20 Allergies Allergy/AdvReac Type Severity Reaction Status Date / Time bee venom protein (honey bee) Allergy Severe Anaphylaxis Verified 04/27/20 23:27 clams Allergy Severe Anaphylaxis Verified 04/27/20 23:27 coconut Allergy Severe rash if Verified 04/27/20 23:27 touched, throat closes if eaten mussels Allergy Severe Anaphylaxis Verified 04/27/20 23:27 oyster extract Allergy Severe Anaphylaxis Verified 04/27/20 23:27 scallops Allergy Severe Anaphylaxis Verified 04/27/20 23:27 lamotrigine Allergy Intermediate itching, Verified 04/27/20 23:27 rash,sob(to generic) can use brand name copper Allergy Mild rash Verified 04/27/20 23:27 nickel Allergy Mild rash Verified 04/27/20 23:27 pineapple Allergy Mild MOUTH RASH Verified 04/27/20 23:27 Home Medications Home Medications Medication Instructions Recorded Confirmed Type amlodipine 10 mg tablet 10 mg PO DAILY #90 tab 03/19/20 04/27/20 Rx cholecalciferol (vitamin D3) 1,250 1,250 mcg PO WEEKLY #12 cap 03/19/20 04/27/20 Rx mcg (50,000 unit) capsule clonidine HCl 0.2 mg tablet 0.2 mg PO TID #90 tab 03/19/20 04/27/20 Rx lisinopril 40 mg tablet 40 mg PO QAM #90 tab 03/19/20 04/27/20 Rx epinephrine [EpiPen 2-Martin] 0.3 mg IM Q10M PRN 04/02/20 04/27/20 History fluticasone propionate [Flonase 1 spray INTNAS DAILY PRN 04/02/20 04/27/20 History Allergy Relief] furosemide 40 mg tablet 40 mg PO BID #60 tab 04/02/20 04/27/20 Rx gabapentin 300 mg PO BID 04/02/20 04/27/20 History loratadine [Claritin RediTabs] 10 mg PO QPM 04/02/20 04/27/20 History labetalol 200 mg tablet 200 mg PO BID #60 tab 04/18/20 04/27/20 Rx amoxicillin 875 mg-potassium 1 tab PO BID #20 tab 04/22/20 04/27/20 Rx clavulanate 125 mg tablet omeprazole 20 mg PO QAM 04/26/20 04/27/20 History Past Med/Surg History Medical History Anxiety Bipolar disorder Bulging of cervical intervertebral disc ROM WNL Cervical radiculopathy at C7 Chronic bronchitis SUMMER MONTHS Fatty liver Fibromyalgia GERD (gastroesophageal reflux disease) History of kidney stones Hypertension Moderate recurrent major depression Morbid obesity with BMI of 50.0-59.9, adult Neuropathy Osteoarthritis Ovarian cyst Post traumatic stress disorder Primary fibromyalgia syndrome Rash and nonspecific skin eruption Reflux esophagitis Seasonal allergies Sinus infection Ventral hernia Surgical History History of ankle surgery left x2 History of arthroscopy of left shoulder History of bilateral tubal ligation History of cholecystectomy History of colonoscopy with polypectomy History of endometrial ablation History of esophagogastroduodenoscopy (EGD) History of hysterectomy History of knee surgery BL History of removal of ureteral stent History of surgery removal of kylee stuck inside throat History of surgical removal of ganglion cyst right wrist History of tonsillectomy History of wisdom tooth extraction S/P cystoscopy with ureteral stent placement Status post myringotomy with tube placement of both ears Status post wrist surgery LEFT Family History Grandmother (Maternal) Family history of reaction to anesthesia PONV, RESPIRATORY ISSUES Grandmother Colon cancer Father Heart disease Inflammatory bowel disease Mother Inflammatory bowel disease Uncle Colon cancer Grandmother (Paternal) Myocardial infarction Grandfather (Paternal) Myocardial infarction Prostate cancer Denies family history of Ovarian cancer Breast cancer Social History Smoking Status: Never smoker Tobacco Type: Cigars Second Hand Exposure: No; Hx Alcohol Use: Yes Alcohol type: wine Hx Substance Use: Yes Prescribed Medications: Marijuana Preferred Language: Cymraes Communication Ability: Effective Visual Impairment: No Limitations Hearing Ability: Normal Asbestos Worker Helper Required: No Beliefs That Will Affect Care: None Current Living Situation: Spouse and Family Current Living Situation Comment: Lives with , children and sister current occupational status: employed Feels Safe at Home: Yes Dental Care, Regularly: Yes Physical Activity Frequency: Daily Physical Activity Frequency Comment: SWIMMING Seatbelt Use: never Sunscreen Use: Yes Assistive Devices: Glasses Review of Systems Review of Systems: All systems reviewed & are unremarkable except as noted in HPI & below Physical Exam Physical Exam: General: patient resting comfortably, NAD, non-toxic in appearance, AA&O x 4 Skin: warm, dry, intact, no rashes or lesions HEENT: NC/AT, PERRL, EOMI, anicteric sclera, conjunctiva without injection, external ear normal to inspection and nontender, nares patent, moist mucus membranes, dentition intact, no oropharyngeal lesions, neck supple, trachea midline, no LAD, no thyromegaly, no JVD Heart: +S1/S2, regular, no m/r/g Lungs: equal air entry bilaterally, no rales/rhonchi/wheezes Abd: +BS, soft, NT/ND, no masses/organomegaly/ascites Ext: warm, 2+ pulses in UE/LE bilaterally, no clubbing/cyanosis or edema Neuro: nonfocal, patient AA&O x 4, speech intact, no facial droop, moving all extremities on command with equal strength 5/5 Results & Data Results & Data ([facility]) Vital Signs (Past 12 Hours) Vital Signs Temp Pulse Resp BP Pulse Ox 04/28/20 02:01 91 H 18 142/92 H 04/28/20 01:31 89 18 168/89 H 96 04/28/20 01:07 86 23 164/98 H 95 04/28/20 00:31 92 H 24 181/91 H 96 04/28/20 00:01 97 H 23 210/108 H 96 04/27/20 23:31 94 H 31 H 210/98 H 94 04/27/20 23:00 98 H 36 H 192/116 H 96 04/27/20 22:40 36.8 C 107 H 24 184/120 H 94 Laboratory Results Lab Results 04/27/20 04/27/20 Range/Units 22:50 22:50 WBC 15.21 H (4.8-10.8) K/uL RBC 5.11 (4.2-5.4) M/uL Hgb 14.9 (12.0-16.0) g/dL Hct 45.0 (37-47) % MCV 88.1 (80-100) fL MCH 29.2 (25-34) pg MCHC 33.1 (32-36) g/dL RDW Std Deviation 44.9 (36.4-46.3) fL RDW Coeff of Sarah 13.9 (11.5-14.5) % Plt Count 431 H (130-400) K/uL MPV 9.8 (7.4-10.4) fL Immature Gran % (Auto) 0.4 % Neut % (Auto) 69.3 % Lymph % (Auto) 20.7 % Monona % (Auto) 7.0 % Eos % (Auto) 2.2 % Baso % (Auto) 0.4 % Neut # (Auto) 10.54 H (1.4-6.5) K/uL Lymph # (Auto) 3.15 (1.2-3.4) K/uL Monona # (Auto) 1.06 H (0.11-0.59) K/uL Eos # (Auto) 0.34 (0-0.5) K/uL Baso # (Auto) 0.06 (0-0.2) K/uL Immature Gran # (Auto) 0.06 H (0.00-0.02) K/uL Sodium 141 (136-145) mmol/L Potassium 3.5 (3.5-5.1) mmol/L Chloride 107 (98-107) mmol/L Carbon Dioxide 25 (21-32) mmol/L Anion Gap 8.0 (3-11) BUN 15 (7-18) mg/dl Creatinine 0.87 (0.6-1.2) mg/dl Est Cr Clr Drug Dosing 135.3 ml/min Est GFR ( Amer) 97.9 Est GFR (Non-Af Amer) 84.5 BUN/Creatinine Ratio 17.2 (10-20) Glucose 112 H (70-99) mg/dl Calcium 9.6 (8.5-10.1) mg/dl Total Bilirubin 0.2 (0.2-1) mg/dl AST 25 (15-37) U/L ALT 40 (12-78) U/L Alkaline Phosphatase 127 H (45-117) U/L Troponin I < 0.015 (0-0.045) ng/ml Total Protein 7.4 (6.4-8.2) gm/dl Albumin 3.2 L (3.4-5.0) gm/dl Globulin 4.2 H (2.5-4.0) gm/dl Albumin/Globulin Ratio 0.8 L (0.9-2) Diagnostic Findings CXR - no acute process by my interpretation ECG Additional Comments: NSR at 98, left axis, TA=133, ZBC=239, AZe=089, RBB incomplete present, nonspecific changes Code Status & VTE Plan Code Status Full code PG Care Time/CCT Total # of Minutes Spent Total Time Spent with Patient: Total time spent is greater than 50% in coordination of care (as documented) at patient's floor/unit and/or counseling patient: Coding Level of Care Code 64838 Initial Inpt Care Lvl 3 Diagnoses Chest pain R07.2 Chest pain type: precordial pain Hypertension I10 Hypertension type: essential hypertension Benign meningioma of brain D32.0 Morbid obesity E66.01 Primary fibromyalgia syndrome M79.7 (1) Chest pain Chest pain type: precordial pain Qualified Code(s): R07.2 - Precordial pain (2) Hypertension Hypertension type: essential hypertension Qualified Code(s): I10 - Essential (primary) hypertension
[2020-04-28] MEDS ORDERED: LABETALOL HCL IV 5 MG/ML 20ML IV PRN (04:38)
[2020-04-28] MEDS ORDERED: NITROGLYCERIN SL 0.4 MG/TAB TAB SL PRN (04:38)
[2020-04-28] MEDS ORDERED: ACETAMINOPHEN 325 MG TAB PO PRN (04:38)
--- NOTE | 2020-04-28 07:26 | XRay Report ---
SINGLE VIEW CHEST CLINICAL HISTORY: Atypical chest pain. FINDINGS: An AP, portable, upright chest radiograph is compared to chest x-ray and chest CT dated 04/02. The cardiomediastinal silhouette is unremarkable. The lungs and pleural spaces are clear. No pneumothorax is seen. The bony thorax is grossly intact. IMPRESSION: No active disease in the chest. ACT 112: Negative or not required by law. Electronically signed by: Christ Joseph M.D. 04/28/2020 7:24 AM
[2020-04-28] MEDS ORDERED: AMOXICILLIN/CLAVULANATE 875 MG TAB PO SCH (08:00)
[2020-04-28] MEDS ORDERED: PNEUMOCOCCAL POLYSACCHARIDES 25 MCG/0.5 ML VIAL/SYR IM ONE (08:00)
[2020-04-28] MEDS ORDERED: PNEUMOCOCCAL ADMINISTRATION CHARGE ONE (08:00)
[2020-04-28] MEDS: FUROSEMIDE 40 MG TAB PO SCH ×2 (08:12→15:19)
[2020-04-28] MEDS: cloNIDine HCL 0.1 MG TAB PO SCH ×2 (08:12→14:06)
[2020-04-28 08:32] LABS: Appearance Urine Clear (Clear); Bilirubin Urine Negative (Negative); Blood Urine Negative (Negative); Color Urine Yellow; Glucose Urine UA Negative (Negative); Ketones Urine Negative (Negative); Leukocyte Esterase Urine Negative (Negative); Nitrite Urine Negative (Negative); Protein Urine Negative (Negative); Specific Gravity Urine 1.021 (1.000-1.030); Urobilinogen Urine Negative (Negative)
[2020-04-28] MEDS ORDERED: cloNIDine HCL 0.1 MG TAB PO SCH (09:00)
[2020-04-28] MEDS ORDERED: GABAPENTIN 300 MG CAP PO SCH (09:00)
[2020-04-28] MEDS ORDERED: LABETALOL HCL 200 MG TAB PO SCH (09:00)
[2020-04-28] MEDS ORDERED: lisinopriL 40 MG TAB PO SCH (09:00)
[2020-04-28] MEDS ORDERED: PANTOprazole 40 MG TAB PO SCH (09:00)
[2020-04-28] MEDS ORDERED: AMLODIPINE BESYLATE 5 MG TAB PO SCH (09:00)
[2020-04-28 09:27] LABS: Amphetamines+Metham, Urine Neg (Neg); Barbiturates, Urine Neg (Neg); Benzodiazepine, Urine Neg (Neg); Cocaine, Urine Neg (Neg); MDMA (Ecstacy), Urine Neg (Neg); Methadone, Urine Neg (Neg); Opiate, Urine Neg (Neg); Phencyclidine, Urine Neg (Neg)
--- NOTE | 2020-04-28 09:44 | Hospitalist Progress Note ---
Date of Service April 28, 2020 Assessment & Plan Admission and Anticipated Discharge Date Admission Date: April 28, 2020 Results & Data Results & Data ([facility]) Vital Signs (Past 12 Hours) Vital Signs Temp Pulse Pulse Resp BP BP Pulse Ox 04/28/20 08:18 36.5 C 96 H 20 140/88 96 04/28/20 08:04 36.9 C 89 20 140/88 99 04/28/20 05:23 91 H 143/65 H 04/28/20 04:53 98 H 04/28/20 04:39 36.5 C 93 H 20 209/146 H 96 04/28/20 04:00 94 H 24 172/107 H 95 04/28/20 03:30 90 25 H 155/103 H 04/28/20 03:10 92 H 21 156/76 H 04/28/20 02:30 92 H 25 H 163/100 H 04/28/20 02:01 91 H 18 142/92 H 04/28/20 01:31 89 18 168/89 H 96 04/28/20 01:07 86 23 164/98 H 95 04/28/20 00:31 92 H 24 181/91 H 96 04/28/20 00:01 97 H 23 210/108 H 96 04/27/20 23:31 94 H 31 H 210/98 H 94 04/27/20 23:00 98 H 36 H 192/116 H 96 04/27/20 22:40 36.8 C 107 H 24 184/120 H 94 Resident Activity Tracking Resident Involvement: Resident Care Provided Care Provided: Adult [facility] Medicine
--- NOTE | 2020-04-28 09:52 | Medical Student Progress Note ---
Date of Service April 28, 2020 Assessment & Plan (1) Hypertensive urgency: Patient is a 39 y/o female with history of multiple admissions due to hypertensive urgency (up to 232/136 Apr 02) and difficult to controll hypertension on 4 HTN medications. Presented with left sided chest pain radiating to left neck and arm, headache, nosebleed, and elevated BP at 184/120. Due to uncontrolled hypertension on lisinopril, amlodipine, clonidine, labetalol, and furosemide, likely secondary hypertension. Possible ddx: 1) Sleep apnea: Hx of snoring, sleep study done over 8 years ago, no clear results. Sleep study ordered by primary care doctor, May 20 at [facility] 2) Adrenal disease: urine metanephrines pending 3) Thyroid: last TSH 3.02, normal thyroid scan in past 4) Renal: renal doppler done, - for KARIME, fibrovascular dysplasia 5) Coarctation of the aorta: no abnormalities seen on chest CTA and echo stress test 6) Drug use: No illicit drug use, no tobacco, rare ETOH, uses medical marijuana card for topical creams Work on discharging today with plans to f/u with sleep study on 05/20, metanephrine urine test, exercise and diet regimen. May add spironolactone if hypertension continues to be poorly controlled. Present on Admission?: Yes (2) Left-sided chest pain: Likely due to hypertensive urgency. Has a history of anxiety and panic attacks. No chest pain this morning. Admission and Anticipated Discharge Date Admission Date: April 28, 2020 Subjective Doing well overnight. No chest pain, tightness or SOB this morning. Headache this morning 11/08. Heart racing and fluttering this morning when she stood up to use the bathroom. Review of Systems Constitutional: + fatigue Eyes: blurred vision in left eye since Mar 17 Respiratory: no cough Cardiovascular: no chest pain and no dyspnea at rest Additional Comments: Heart racing and fluttering this morning when standing up to urinate Gastrointestinal: no abdominal pain, no nausea and no vomiting Psychiatric: no behavioral changes Physical Exam Constitutional: + obese and comfortable Eyes: PERRL, conjunctivae normal, anicteric sclerae Respiratory: normal respiratory effort, lungs clear to auscultation Cardiovascular: RRR, no murmur, no edema Heart Sounds: normal S1 and normal S2 Vessels: no carotid bruit and + dorsalis pedis pulses abnormal Extremities: no edema Gastrointestinal (Abdomen): normal bowel sounds, soft, nontender, no hepatosplenomegaly Neurologic: Speech / Cognition: normal speech Cranial Nerves: PERRL, normal accommodation, normal facial strength, tongue midline and no nystagmus Upper and lower lip diminished sensation since Mar 17. No facial droop or asymmetry. Psychiatric: A+Ox3, euthymic affect Results & Data ([facility]) Vital Signs (Past 12 Hours) Vital Signs Temp Pulse Pulse Resp BP BP Pulse Ox 04/28/20 08:18 36.5 C 96 H 20 140/88 96 04/28/20 08:04 36.9 C 89 20 140/88 99 04/28/20 05:23 91 H 143/65 H 04/28/20 04:53 98 H 04/28/20 04:39 36.5 C 93 H 20 209/146 H 96 04/28/20 04:00 94 H 24 172/107 H 95 04/28/20 03:30 90 25 H 155/103 H 04/28/20 03:10 92 H 21 156/76 H 04/28/20 02:30 92 H 25 H 163/100 H 04/28/20 02:01 91 H 18 142/92 H 04/28/20 01:31 89 18 168/89 H 96 04/28/20 01:07 86 23 164/98 H 95 04/28/20 00:31 92 H 24 181/91 H 96 04/28/20 00:01 97 H 23 210/108 H 96 04/27/20 23:31 94 H 31 H 210/98 H 94 04/27/20 23:00 98 H 36 H 192/116 H 96 04/27/20 22:40 36.8 C 107 H 24 184/120 H 94
--- NOTE | 2020-04-28 13:16 | Discharge Summary ---
Date of Service April 28, 2020 Admission HPI Per Admitting Provider 39yo C female presenting with acute onset chest pain. Patient was sitting in her home doing a puzzle when she developed severe 10/10 chest pain - left sided with radiation to her neck, left arm numbness, nausea and sweating. Patient then developed a nosebleed and came to the ER. Has been having a difficult time controlling her blood pressure. She is currently on 4 blood pressure medications (Amlodipine 10, Lisinopril 40, Labetalol 200 BID and Clonidine 0.2 TID). She states that she never misses her medication (specifically states she never misses her Clonidine). She has not been taking OTC medications, does not drink caffeine or energy drinks. She does not smoke or drink EtOH to excess. She reports an acute increase in her blood pressure starting March 17, uncertain why. She was admitted to [facility] over Day weekend for HTN crisis. Reports occasional nose bleeds recently. Reports frequent episodes of chest discomfort, occasional episodes of blurry vision and BHATTI when BP is high. Was seen in the ER yesterday by Dr. Padilla for similar, CP with elevated BP. Was told to return if she develops CP again. Had negative dobutamine stress test on 04/17/20 Admission Exam Per Admitting Provider General: patient resting comfortably, NAD, non-toxic in appearance, AA&O x 4 Skin: warm, dry, intact, no rashes or lesions HEENT: NC/AT, PERRL, EOMI, anicteric sclera, conjunctiva without injection, external ear normal to inspection and nontender, nares patent, moist mucus membranes, dentition intact, no oropharyngeal lesions, neck supple, trachea midline, no LAD, no thyromegaly, no JVD Heart: +S1/S2, regular, no m/r/g Lungs: equal air entry bilaterally, no rales/rhonchi/wheezes Abd: +BS, soft, NT/ND, no masses/organomegaly/ascites Ext: warm, 2+ pulses in UE/LE bilaterally, no clubbing/cyanosis or edema Neuro: nonfocal, patient AA&O x 4, speech intact, no facial droop, moving all extremities on command with equal strength 5/5 Principal Diagnosis treatment-resistant hypertension hypertensive urgency Discharge Exam Constitutional Well-appearing 39-year-old female who is lying back in her hospital bed, watching TV. She converses in full sentences and appears in no acute distress. Respiratory Good respiratory effort with symmetric expansion of the chest. Lungs are clear to auscultation bilaterally without any crackles or wheezes. Cardiovascular Normal rate and regular rhythm. S1 and S2 are present without any murmurs rubs or gallops. Gastrointestinal (Abdomen) Abdomen is obese, soft, and nondistended. No appreciable organomegaly. Psychiatric A+Ox3, euthymic affect Discharge Data Allergies Allergy/AdvReac Type Severity Reaction Status Date / Time bee venom protein (honey bee) Allergy Severe Anaphylaxis Verified 04/27/20 23:27 clams Allergy Severe Anaphylaxis Verified 04/27/20 23:27 coconut Allergy Severe rash if Verified 04/27/20 23:27 touched, throat closes if eaten mussels Allergy Severe Anaphylaxis Verified 04/27/20 23:27 oyster extract Allergy Severe Anaphylaxis Verified 04/27/20 23:27 scallops Allergy Severe Anaphylaxis Verified 04/27/20 23:27 lamotrigine Allergy Intermediate itching, Verified 04/27/20 23:27 rash,sob(to generic) can use brand name copper Allergy Mild rash Verified 04/27/20 23:27 nickel Allergy Mild rash Verified 04/27/20 23:27 pineapple Allergy Mild MOUTH RASH Verified 04/27/20 23:27 Consultations 04/28/20 02:14 ED Decision to Admit Stat Hospital Course (1) Hypertensive urgency: Rae is a very pleasant 39-year-old female with a notable past medical history including 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 Of note, she was seen here on 04/26 for a similar situation (chest pain, HTN urgency), and over Labor Day at [facility] for hypertensive crisis. Atypical Chest Pain - Clinically, patient describes as a 10/10 chest pain associated with radiation to neck, left arm numbness, nausea, diaphoresis, and epistaxis -- in the ED, BP was found to be in the ~180s/120s - Studies to further work-up this chest pain (performed at this visit unless otherwise indicated): - Troponin trend was <0.015 x 3 - EKG demonstrated no ST-T abnormalities or new rhythms; no significant changes when compared to previous EKGs - CXR demonstrated no acute pathology - CTA-Chest (04/26) demonstrated no evidence of PE or aortic pathology. Did demonstrate hepatomegaly with steatosis. - Dobutamine Stress Echo (04/17): Negative stress echo/ECG at 86% maximum predicted HR; normal LV function - Nitro was given x 1 and yielded some improvement of chest pain - Chest pain seemed to improve with BP control -- suspect this was likely 2/2 pressures and perhaps component of anxiety Treatment-resistant Hypertension with Urgency - Patient has been seen >3 times in the last month for hypertension-related issues -- seen on 04/26 for chest pain + HTN urgency, as well as at [facility] over for HTN urgency - Current hypertensive regimen (at arrival): amlodipine 10mg PO daily, clonidine 0.2mg PO t.i.d., labetolol 200mg PO b.i.d., lisinopril 40mg PO qAM, and furosemide 40mg PO b.i.d. - Screening for secondary causes so far has included: - Patient reports being fully compliant to her medication regimen - Day, [facility] Hospitalization: Renal doppler was negative for KARIME and FMD - BUN, Cr continue to be WNL - CT-A of the Chest did not demonstrate aortic pathology - TSH WNL per chart - Denies use of stimulants, recreational drugs (UTox negative at arrival) - Obesity -- weight has been stable over last 10 years - Urinary metanephrines checked -- results pending - Patient states that she has not undergone a good MIGUEL A workup -- says one is scheduled for mid-May - Received one dose of IV labetalol in the ED, with some improvement in BPs - BPs at admission were 180/120s --> overnight, max BP was 210/110 (of note, BPs seem to trend highest - on average - overnight, per recorded values) - Suspect MIGUEL A with component of essential HTN is a major player of this treatment-resistant HTN -- follow-up with scheduled sleep study upon discharge, continue medication regimen - Can consider addition of spironolactone to daily regimen should BP remain uncontrolled despite work-up / management of MIGUEL A Chronic Medical Problems - Meningioma of Brain: Noted - Morbid Obesity (BMI 58.3): Discussed regular diet, physical activity during stay -- would likely benefit from weight loss - Fibromyalgia: Continued gabapentin during stay Dispo: Med/surg with Tele F/E/N: Regular diet Code: Full code Total Time Total Time Spent Total Time Spent (In Minutes): >30 Discharge Plan Discharge Items Patient Disposition: Home - Self-Care Reason For Visit: HTN URGENCY Discharge Diagnosis: hypertension hypertensive urgency Activity: Resume your previous activity Non-emergency contact: Primary Care Provider Call non-emergency contact if: your symptoms worsen, your pain is not controlled and your temperature is above 101.5 Follow-up/Referrals: Lalo Wade MD [Primary Care Provider] - 05/05/20 2:15 pm Diet: Regular Addtl Attending Provider Instructions: You were seen at [facility] from 04/28 to 04/29 in the setting of chest pain and an elevated blood pressure. In the Emergency Department, you underwent several tests that evaluated the function of your heart and kidneys (including blood tests and an ECG). None of these tests demonstrated any worrisome abnormalities, including anything that may be suggestive that something is wrong with the heart (e.g., a heart attack). Further, you also underwent a chest X-Ray which did not show any new abnormalities in the lungs from your previous visit. You did receive some IV blood pressure medicine which did help. We discussed that the underlying cause of your elevated blood pressure may be related to obstructive sleep apnea (MIGUEL A) and possibly anxiety. MIGUEL A is a significant cause of treatment-resistant hypertension (high blood pressure) and, given the history you provided us, deserves further work-up. We highly suggest you keep your sleep study as scheduled to determine whether or not MIGUEL A may be contributory to your blood pressure. Further, should your blood pressure remain uncontrolled, you should talk with your PCP about potentially adding spironolactone to your regimen. No medications were added, changed, or removed upon discharge. Continue your home blood pressure medication regimen . If you experience any new weakness, sensory changes (e.g., numbness or tingling), significant headache out of proportion from your previous headaches, or worsening of your pain, please seek immediate medical attention or call 911 or go to the emergency department for further work-up and treatment. Pending Studies at Discharge: Yes (metanephrines (labs) ) Stand-Alone Forms: My [facility], Smoking Cessation Medications and DC Order Prescriptions: Continued amoxicillin-pot clavulanate [Augmentin] 875-125 mg tablet 1 tab PO BID Qty: 20 RF: 0 furosemide [Lasix] 40 mg tablet 40 mg PO BID Qty: 60 RF: 2 labetalol 200 mg tablet 200 mg PO BID Qty: 60 RF: 5 clonidine HCl 0.2 mg tablet 0.2 mg PO TID Qty: 90 RF: 3 amlodipine 10 mg tablet 10 mg PO DAILY Qty: 90 RF: 3 cholecalciferol (vitamin D3) 1,250 mcg (50,000 unit) capsule 1,250 mcg PO WEEKLY Qty: 12 RF: 0 lisinopril 40 mg tablet 40 mg PO QAM Qty: 90 RF: 3 loratadine [Claritin RediTabs] 10 mg Tablet,Disintegrating 10 mg PO QPM RF: 0 gabapentin 300 mg capsule 300 mg PO BID RF: 0 epinephrine [EpiPen 2-Martin] 0.3 mg/0.3 mL auto-injector 0.3 mg IM Q10M PRN (Reason: Bronchodilation) RF: 0 fluticasone propionate [Flonase Allergy Relief] 50 mcg/actuation spray,suspension 1 spray INTNAS DAILY PRN (Reason: Allergy Symptoms) RF: 0 omeprazole 20 mg capsule,delayed release(DR/EC) 20 mg PO QAM RF: 0 Discharge Orders: Discharge Order (Routine); Ordered 04/28/20 Ordered By: Jason Stratton Admission Data Admit Date/Time: 04/28/20 02:47 Attending Provider: Jason House Admit Provider: Denise Davis Primary Care Provider: Lalo Wade V. Other Providers: Denise Davis Other Interventions: Discharge Summary Assessment (RN) Last Done: 04/28/20 15:35 Supervising Physician Co-Signing Physician Notes I personally examined the patient and verified all guzman points of history and exam, discussed case, and agree with decision making with Dr Stratton. feeling better and feels up to going home. is working on exercising more hasn't lost weight, in review of diets a fair amount of simple/starchy carbs (mostly rice/potatos) that she didn't realize were quite calorie dense vitals noted nad heent nc at mmm breathing unlabored no accessory muscles good effort skin no rashes no pallor or icterus neuro no focal deficits uncontrolled HTN -neg trops/EKG, recent negative stress and no CHF - so cardiac htn crises ruled out -no focal neuro deficits, no headache w concomitant blurred vision or slurred speech so neurologic HTN crises ruled out -stable for home -suspect MIGUEL A - has sleep study soon - suspect treating will help w BP -discussed lifestyle - applauded the changes she's making and discussed the "physics of weight loss" and noted that calorie dense carbs are probably precluding ability to lose weight -- discussed her BEE is approx 2300/day and how to "spend more than she earns" venous stasis -dsiscussed mobilization, movement, weight loss, compression, Na restriction -discussed how this can make the "scale lie" if she's having fluid retention stable for home Resident Activity Tracking Resident Involvement: Resident Care Provided Care Provided: Adult Hospital Medicine
[2020-04-28] MEDS ORDERED: Nursing to Pharmacy Communication SCH (14:15)
--- NOTE | 2020-04-28 18:59 | Billing Data ---
Date of Service April 28, 2020 Coding Level of Care Code D/C Day Management >30 mins
--- NOTE | 2020-04-29 05:46 | Electrocardiogram Report ---
Test Reason : Blood Pressure : / mmHG Vent. Rate : 098 BPM Atrial Rate : 098 BPM P-R Int : 130 ms QRS Dur : 100 ms QT Int : 356 ms P-R-T Axes : 036 -31 023 degrees QTc Int : 454 ms Normal sinus rhythm Left axis deviation Incomplete right bundle branch block Nonspecific T wave abnormality Abnormal ECG When compared with ECG of 26-APR-2020 18:28, No significant change Confirmed by Rudi Minaya ([id number]) on 04/29/2020 5:46:21 AM Referred By: REFERRED SELF Confirmed By:Rudi Minaya
[2020-05-04 15:05] LABS: Creatinine, Random Urine 106 mg/dL (20-275); Total Metanephrine 325 mcg/g cr (94-445)
== END 2020-04-28 17:04 | disposition home or self-care (01) | DRG 305 ==
LOC: ED 22:38 → 2S 04-28 02:47 → SUATTDRO 04-28 02:47 → 2S 04-28 04:20

== ENCOUNTER 2022-09-01 16:23 | Observation (INO) ==
--- NOTE | 2022-09-01 16:43 | ED Triage Note ---
Date of Service September 01, 2022 History of Present Illness This patient was briefly evaluated while in triage. An abbreviated physical exam was performed. This patient is a 41-year-old Female with past medical history of "heart attack" per patient, who presents to the ED for evaluation of chest pain. Physical Exam VITALS: Vitals are noted on the nurse's note and reviewed by myself. GENERAL: This is a 41-year-old female, in no acute distress, nondiaphoretic, well-developed well-nourished. NEURO: Patient was alert and oriented. Initial orders for labs and / or imaging were placed and patient was placed in the waiting area until a bed is available. Please see further documentation for the full ED course.
[2022-09-01 17:04] LABS: Basophils # (auto) 0.13 K/uL (0-0.2); Basophils % (auto) 1.1 %; Eosinophils # (auto) 0.39 K/uL (0-0.50); Eosinophils % (auto) 3.2 %; Hematocrit (blood only) 46.8 % (37.0-47.0); Hemoglobin 15.6 g/dl (12.0-16.0); Immature Granulocytes # (auto) 0.03 K/uL (0.01-0.20); Immature Granulocytes % (auto) 0.2 %; Lymphocytes # (auto) 3.22 K/uL (1.2-3.4); Lymphocytes % (auto) 26.7 %; Mean Corpuscular Hemoglobin 28.8 pg (25.0-34.0); Mean Corpuscular Hgb Conc 33.3 g/dL (32.0-36.0); Mean Corpuscular Volume 86.3 fL (80.0-100.0); Mean Platelet Volume 9.8 fL (9.4-12.4); Monocytes # (auto) 1.02 K/uL (0.11-0.59); Monocytes % (auto) 8.5 %; Neutrophils # (auto) 7.25 K/uL (1.40-6.50); Neutrophils % (auto) 60.3 %; Platelet Count 427 K/uL (130-400); RDW Coefficient of Variation 14.3 % (11.5-14.5); RDW Standard Deviation 45.1 fL (36.4-46.3); Red Blood Count 5.42 M/uL (4.20-5.40); White Blood Count 12.04 K/ul (4.8-10.8)
[2022-09-01 17:21] LABS: Albumin Globulin Ratio 1.3 (0.9-2); Albumin Level 4.3 gm/dl (3.4-5.0); BUN Creatinine Ratio 14.7 (10-20); Bilirubin,Total 0.3 mg/dl (0.2-1.0); Calcium 9.9 mg/dl (8.5-10.1); Creatinine Clr Calc Pharmacy 177.5 ml/min; Est GFR (African American) 126.8 ml/min; Est GFR (Non-African American) 109.4 ml/min; Globulin 3.4 gm/dl (2.5-4.0); Potassium 3.9 mmol/L (3.5-5.1); Total Protein 7.7 gm/dl (6.0-8.3)
[2022-09-01 17:28] LABS: Troponin I High Sensitivity 8.3 pg/ml (0-14)
--- NOTE | 2022-09-01 17:57 | XRay Report ---
XR chest 1V portable CLINICAL HISTORY: Chest pain, nonspecific. Short of breath. COMPARISON STUDY: Chest CT April 26, 2020. Chest radiograph August 04, 2022. FINDINGS: Lung volumes are normal. Lungs are clear. There is no pneumothorax or pleural effusion. Car diac size is normal. Mediastinal contours are normal. There is no evidence for pulmonary edema. IMPRESSION: No acute cardiopulmonary findings. ACT 112: Negative or not required by law. Electronically signed by: Talha Grijalva M.D. 09/01/2022 5:55 PM
[2022-09-01] MEDS ORDERED: LORazepam 2 MG/1 ML VIAL IV STA (20:10)
--- NOTE | 2022-09-01 20:13 | Emergency Department Note ---
Impression & Plan Chest pain, Elevated troponin I level, Hypertensive urgency ED Provider Note NAME: DONALDO ORLANDO AGE: 41 SEX: F : 1980 ARRIVES VIA: Walk-In INFORMANT: Patient, ED PROVIDER(S): Luis Aragon DO CHIEF COMPLAINT: Chest pain HPI: The patient is a 41-year-old female who presented to the emergency department for an evaluation of chest pain. The patient states that she has a history of cardiac disease in the past. She had what sounds like an NSTEMI in the past. She has a history of hypertension as well. She is on multiple medications for hypertension. She had a recent change to her medications approxi-1 month ago. She was switched to a clonidine patch rather than clonidine pills. The patient denies having any lower extremity swelling. She has had some shortness of breath as well. Her significant other states that the symptoms began after an argument she had on the telephone. She is often seen by her family doctor recently for the symptoms. She was in the waiting room for an extended period of time prior to coming back to her room. ROS: See above HPI for pertinent positives & negatives. A total of 10 systems reviewed and were otherwise negative. PAST MEDICAL HISTORY: See Below PAST SURGICAL HISTORY: See Below FAMILY HISTORY: See Below SOCIAL HISTORY: See Below HOME MEDICATIONS: See Below ALLERGIES: See Below VITALS: See Below PHYSICAL EXAMINATION: GENERAL: Patient is awake alert in no acute distress patient is resting comfortably and showing no signs of anxiety EYES: The conjunctivae are clear. The pupils are round and reactive. EARS, NOSE, MOUTH AND THROAT: The nose is without any evidence of any deformity. Mucous membranes are moist. Tongue is midline. NECK: The neck is nontender and supple. RESPIRATORY: Normal respiratory effort is noted there is no evidence of wheezing rhonchi or rales CARDIOVASCULAR: Regular rate and rhythm noted there no murmurs rubs or gallops normal S1 normal S2. GASTROINTESTINAL: The abdomen is soft. Abdomen is nontender. MUSCULOSKELETAL/EXTREMITIES: There is no evidence of gross deformity full range of motion is noted in the hips and shoulders. SKIN: There was no significant pedal edema or calf tenderness elicited. NEUROLOGIC: Patient is awake alert and oriented x3 MEDICAL DECISION MAKING: The patient is a 41-year-old female who does have a history of very difficult to manage hypertension who presented to the emergency department for an evaluation of chest pain. The patient describes chest pain as well as some difficulty breathing. Her blood pressure was very elevated upon arrival. I discussed the patient's previous medications. She did have a change to her medications over the course the last month but this was done through the emergency department. She was waiting follow-up with her primary care physician since this change. She was changed to a clonidine patch. The patient complained of chest discomfort. She had serial troponin measurements while in the emergency department. Her second troponin was elevated compared to her first. Her blood pressure was managed in the emergency department. I discussed the patient's laboratory and radiographic studies with her. Given her findings I also discussed her condition with the on-call [facility] hospitalist. They have agreed to evaluate the patient in the emergency department for further management and disposition. I do feel given the patient's findings she would not be a good candidate for outpatient management. Triage Nursing notes reviewed. Prior medical records reviewed Vital Signs: reviewed and remarkable for elevated blood pressure. Differential diagnosis: Cardiac ischemia, aortic dissection, pulmonary embolism, pneumothorax, pneumonia, pericarditis, myocarditis, esophageal rupture, GERD, cholecystitis, pancreatitis, musculoskeletal, as well as other pathologies. ER treatment provided: See below Diagnostics interpreted by me: ECG: EKG was obtained in the emergency department. My interpretation is sinus tachycardia [address] depressions were noted. Anterior Q waves were noted. There was no acute ST segment elevations appreciated. This was compared to a tracing from August 04, 2022. No changes were noted. Cardiac Monitoring: An order was placed for continuous cardiac monitoring. The monitor shows a rate of 94 bpm with sinus rhythm. Laboratory studies: As stated above and show below. Imaging studies: See below. Radiographic imaging was reviewed by myself Consultation(s): I discussed this case with Dr. Calabrese who is on-call for the [facility] hospitalist group. ED COURSE: The patient was placed in observation status at 1645. The patient was placed in observation for chest pain of undetermined etiology. During the time in observation, the patient was frequently reassessed and received serial troponin measurements. On Final reassessment the patient had an elevation in her troponin compared initial troponin measurement and the patient will be evaluated by the hospitalist for possible inpatient management at this time. A total observation time of 2.5 hours. Past Med/Surg History Medical History Acute lumbar back pain Anxiety Bipolar disorder Bulging of cervical intervertebral disc ROM WNL Cervical radiculopathy at C7 Chronic bronchitis [facility] Cough COVID-19 Dysphagia resolved with EGD Encounter for screening for COVID-[address] scan 06/01/2021 Fibromyalgia GERD (gastroesophageal reflux disease) Herniated disc LUMBAR History of cervical cancer hysterectomy History of COVID-19 Apr 21, 2021 > not hospitalized > breathing difficulty, pneumonia, cough, fatigue History of kidney stones Hypertension Hypertensive urgency Increased PTH level Left knee injury Left lumbar radiculopathy Moderate recurrent major depression Morbid obesity with BMI of 60.0-69.9, adult Neuropathy arms and legs Osteoarthritis Ovarian cyst Post traumatic stress disorder Rash and nonspecific skin eruption no current rash, questionable lupus Reflux esophagitis Seasonal allergies Sinus infection history of, no current issues Sleep apnea cpap Ventral hernia Surgical History History of ankle surgery left x2 History of arthroscopy of left shoulder History of bilateral tubal ligation History of cholecystectomy History of colonoscopy with polypectomy History of endometrial ablation History of esophagogastroduodenoscopy (EGD) History of hysterectomy (02/21/12) History of knee surgery BL History of removal of ureteral stent History of surgery removal of kylee stuck inside throat History of surgical removal of ganglion cyst right wrist History of tonsillectomy History of wisdom tooth extraction S/P cystoscopy with ureteral stent placement Status post epidural steroid injection Status post myringotomy with tube placement of both ears Status post wrist surgery LEFT Family History Grandmother (Maternal) Family history of reaction to anesthesia PONV, RESPIRATORY ISSUES Grandmother Colon cancer Father Heart disease Inflammatory bowel disease Mother Inflammatory bowel disease Uncle Colon cancer Grandmother (Paternal) Myocardial infarction Grandfather (Paternal) Myocardial infarction Prostate cancer Denies family history of Ovarian cancer Breast cancer Social History Smoking Status: Never smoker Tobacco Type: Cigars Second Hand Exposure: No; Do You Dip or Chew Tobacco: No; Hx Alcohol Use: Yes Alcohol type: wine Hx Substance Use: Yes (topical marijuana only prn) Prescribed Medications: Marijuana Substance Use Type Other:: RX use, TOPICAL CREAM Preferred Language: Japanese Communication Ability: Effective Visual Impairment: No Limitations Hearing Ability: Normal Moss Gatherer Required: No Beliefs That Will Affect Care: None Current Living Situation: Spouse and Family Current Living Situation Comment: Lives with and 2 kids and sister current occupational status: employed Feels Safe at Home: Yes Safety Concerns: Feels Safe At This Time Dental Care, Regularly: Yes Physical Activity Frequency: Daily Physical Activity Frequency Comment: SWIMMING Seatbelt Use: never Sunscreen Use: Yes Assistive Devices: CPAP and Glasses Allergies Allergies Allergy/AdvReac Type Severity Reaction Status Date / Time bee venom protein (honey bee) Allergy Severe Anaphylaxis Verified 08/04/22 16:37 clams Allergy Severe Anaphylaxis Verified 08/04/22 16:37 coconut Allergy Severe rash if Verified 08/04/22 16:37 touched, throat closes if eaten mussels Allergy Severe Anaphylaxis Verified 08/04/22 16:37 oyster extract Allergy Severe Anaphylaxis Verified 08/04/22 16:37 scallops Allergy Severe Anaphylaxis Verified 08/04/22 16:37 lamotrigine Allergy Intermediate itching, Verified 08/04/22 16:37 rash,sob(to generic) can use brand name copper Allergy Mild rash Verified 08/04/22 16:37 nickel Allergy Mild rash Verified 08/04/22 16:37 pineapple Allergy Mild MOUTH RASH Verified 08/04/22 16:37 Home Meds Home Medications Medication Instructions Recorded Confirmed Medical Marijuana 1 mg topical PM PRN joint pain 05/14/20 09/01/22 fluticasone propionate 50 1 spray intranasal DAILY PRN 02/10/21 09/01/22 mcg/actuation nasal Allergy Symptoms spray,suspension (Flonase Allergy Relief) gabapentin 400 mg tablet 400 mg PO TID 12/10/21 09/01/22 fluticasone propionate 220 2 puff inhalation Q12H PRN 09/01/22 09/01/22 mcg/actuation HFA aerosol inhaler .allergies (Flovent HFA) labetalol 300 mg tablet 300 mg PO BID BP > 180/100 09/01/22 09/01/22 Previous Rx's Medication Instructions Recorded mecobalamin (vitamin B12) 10,000 1,000 mcg IM MONTHLY #1 ea 11/20/20 mcg solution for injection albuterol sulfate 90 mcg/actuation 2 puff inhalation 6XD PRN 06/21/21 aerosol inhaler (Ventolin HFA) shortness of breath or wheezing #18 grams hydroxyzine HCl 25 mg tablet 25 mg PO BID PRN itching #180 tabs 01/19/21 amlodipine 10 mg tablet (Norvasc) 10 mg PO QAM #90 tabs 03/18/22 cholecalciferol (vitamin D3) 50 100 mcg PO QAM #90 tabs 03/18/22 mcg (2,000 unit) tablet (Vitamin D3) furosemide 40 mg tablet (Lasix) 40 mg PO BID #180 tabs 03/18/22 lisinopril 40 mg tablet (Zestril) 40 mg PO QAM htn #90 tabs 03/18/22 loratadine 10 mg disintegrating 10 mg PO HS #90 tabs 03/18/22 tablet (Claritin RediTabs) montelukast 10 mg tablet 10 mg PO QAM #90 tabs 03/18/22 (Singulair) oxybutynin chloride 5 mg 5 mg PO PM #90 tabs 03/18/22 tablet,extended release 24 hr pantoprazole 40 mg tablet,delayed 40 mg PO DAILY #90 tabs 03/18/22 release spironolactone 50 mg tablet 50 mg PO QAM #90 tabs 03/18/22 (Aldactone) venlafaxine 75 mg capsule,extended 75 mg PO PM #90 caps 03/18/22 release 24 hr (Effexor XR) epinephrine 0.3 mg/0.3 mL 0.3 mg (0.3 mL) IM Q10M PRN 06/22/22 injection, auto-injector (EpiPen ALLERGY REACTION #2 ea 2-Martin) cholecalciferol (vitamin D3) 1,250 50,000 unit PO WK #12 caps 07/12/22 mcg (50,000 unit) capsule clonidine 0.1 mg/24 hr weekly 1 patch transdermal ONCE #4 ea 08/04/22 transdermal patch Results & Data (ED) Vital Signs Vital Signs - 24 hr 09/01/22 16:38 09/01/22 16:41 09/01/22 20:12 Temperature 36.3 C L Temperature Source Skin Pulse Rate 117 H Pulse Rate [Right Finger] Respiratory Rate 20 Respiratory Effort / Characteristics Non-Labored Spontaneous Non-Labored Respiratory Depth Normal Normal Respiratory Pattern Regular Blood Pressure 191/108 H Blood Pressure [Right Arm] Blood Pressure Mean 135 Blood Pressure Mean [Right Arm] Pulse Oximetry 96 97 Oxygen Delivery Method Room Air Room Air Sepsis Recent Fever Within 48 Hours No Sepsis New/Unexplained Change in Mental Status N/A Sepsis Action Taken by Nursing No Action Required 09/01/22 20:12 09/01/22 20:12 09/01/22 21:18 Temperature Temperature Source Pulse Rate 88 Pulse Rate [Right Finger] 91 H Respiratory Rate 16 16 Respiratory Effort / Characteristics Non-Labored Spontaneous Respiratory Depth Normal Respiratory Pattern Blood Pressure Blood Pressure [Right Arm] 197/98 H 167/123 H Blood Pressure Mean Blood Pressure Mean [Right Arm] 131 137 Pulse Oximetry 98 98 98 Oxygen Delivery Method Room Air Room Air Room Air Sepsis Recent Fever Within 48 Hours Sepsis New/Unexplained Change in Mental Status Sepsis Action Taken by Nursing 09/01/22 21:53 09/01/22 22:55 09/01/22 21:00 Temperature Temperature Source Pulse Rate 87 Pulse Rate [Right Finger] 91 H 88 Respiratory Rate 18 16 21 Respiratory Effort / Characteristics Non-Labored Spontaneous Non-Labored Spontaneous Respiratory Depth Normal Normal Respiratory Pattern Blood Pressure Blood Pressure [Right Arm] 188/118 H 148/85 H Blood Pressure Mean Blood Pressure Mean [Right Arm] 141 106 Pulse Oximetry 98 96 97 Oxygen Delivery Method Room Air Room Air Room Air Sepsis Recent Fever Within 48 Hours Sepsis New/Unexplained Change in Mental Status Sepsis Action Taken by Nursing 09/01/22 21:17 09/01/22 21:35 09/01/22 21:36 Temperature Temperature Source Pulse Rate 95 H 94 H Pulse Rate [Right Finger] Respiratory Rate 20 Respiratory Effort / Characteristics Respiratory Depth Respiratory Pattern Blood Pressure 167/123 H 188/118 H Blood Pressure [Right Arm] Blood Pressure Mean 137 141 Blood Pressure Mean [Right Arm] Pulse Oximetry 98 97 99 Oxygen Delivery Method Room Air Room Air Room Air Sepsis Recent Fever Within 48 Hours Sepsis New/Unexplained Change in Mental Status Sepsis Action Taken by Nursing 09/01/22 22:00 09/01/22 22:30 09/01/22 22:31 Temperature Temperature Source Pulse Rate 91 H 95 H Pulse Rate [Right Finger] Respiratory Rate 23 24 Respiratory Effort / Characteristics Respiratory Depth Respiratory Pattern Blood Pressure 186/95 H Blood Pressure [Right Arm] Blood Pressure Mean 125 Blood Pressure Mean [Right Arm] Pulse Oximetry 98 99 Oxygen Delivery Method Room Air Room Air Sepsis Recent Fever Within 48 Hours Sepsis New/Unexplained Change in Mental Status Sepsis Action Taken by Nursing 09/01/22 22:31 09/01/22 22:56 09/01/22 23:00 Temperature Temperature Source Pulse Rate 92 H 88 87 Pulse Rate [Right Finger] Respiratory Rate 22 22 22 Respiratory Effort / Characteristics Respiratory Depth Respiratory Pattern Blood Pressure 148/85 H 151/77 H Blood Pressure [Right Arm] Blood Pressure Mean 106 101 Blood Pressure Mean [Right Arm] Pulse Oximetry 98 97 97 Oxygen Delivery Method Room Air Room Air Room Air Sepsis Recent Fever Within 48 Hours Sepsis New/Unexplained Change in Mental Status Sepsis Action Taken by Nursing 09/01/22 23:15 09/01/22 23:30 09/01/22 23:31 Temperature Temperature Source Pulse Rate 89 85 91 H Pulse Rate [Right Finger] Respiratory Rate 21 17 23 Respiratory Effort / Characteristics Respiratory Depth Respiratory Pattern Blood Pressure 156/81 H 123/71 Blood Pressure [Right Arm] Blood Pressure Mean 106 88 Blood Pressure Mean [Right Arm] Pulse Oximetry 99 97 98 Oxygen Delivery Method Room Air Room Air Room Air Sepsis Recent Fever Within 48 Hours Sepsis New/Unexplained Change in Mental Status Sepsis Action Taken by Long-Term Medications Current Medication List: was personally reviewed by me Laboratory Data Attestation: I reviewed the patient's lab results. 09/01/22 16:47 09/01/22 16:47 Lab Results 09/01/22 09/01/22 09/01/22 Range/Units 16:47 16:47 20:16 WBC 12.04 H (4.8-10.8) K/ul RBC 5.42 H (4.20-5.40) M/uL Hgb 15.6 (12.0-16.0) g/dl Hct 46.8 (37.0-47.0) % MCV 86.3 (80.0-100.0) fL MCH 28.8 (25.0-34.0) pg MCHC 33.3 (32.0-36.0) g/dL RDW Std Deviation 45.1 (36.4-46.3) fL RDW Coeff of Sarah 14.3 (11.5-14.5) % Plt Count 427 H (130-400) K/uL MPV 9.8 (9.4-12.4) fL Immature Gran % (Auto) 0.2 % Neut % (Auto) 60.3 % Lymph % (Auto) 26.7 % [place] % (Auto) 8.5 % Eos % (Auto) 3.2 % Baso % (Auto) 1.1 % Neut # (Auto) 7.25 H (1.40-6.50) K/uL Lymph # (Auto) 3.22 (1.2-3.4) K/uL [place] # (Auto) 1.02 H (0.11-0.59) K/uL Eos # (Auto) 0.39 (0-0.50) K/uL Baso # (Auto) 0.13 (0-0.2) K/uL Immature Gran # (Auto) 0.03 (0.01-0.20) K/uL Sodium 139 (136-145) mmol/L Potassium 3.9 (3.5-5.1) mmol/L Chloride 106 (98-107) mmol/L Carbon Dioxide 25 (21-32) mmol/L Anion Gap 8 (3-11) BUN 10 (6-23) mg/dl Creatinine 0.68 (0.6-1.2) mg/dl Est Cr Clr Drug Dosing 177.5 ml/min Est GFR ( Amer) 126.8 ml/min Est GFR (Non-Af Amer) 109.4 ml/min BUN/Creatinine Ratio 14.7 (10-20) Glucose 105 H (70-99(Fasting)) mg/dl Calcium 9.9 (8.5-10.1) mg/dl Total Bilirubin 0.3 (0.2-1.0) mg/dl AST 101 H (13-39) U/L ALT 80 H (7-52) U/L Alkaline Phosphatase 117 H (34-104) U/L Troponin I High Sens 8.3 17.1 H D (0-14) pg/ml Total Protein 7.7 (6.0-8.3) gm/dl Albumin 4.3 (3.4-5.0) gm/dl Globulin 3.4 (2.5-4.0) gm/dl Albumin/Globulin Ratio 1.3 (0.9-2) Administered Medications Miscellaneous (Check Clonidine Patch Placement) 1 each N/A QS NIXON Stop: 10/02/22 01:33 Last Admin: 09/02/22 01:30 Dose: 1 each Documented By: SHUN Discontinued Medications Aspirin (Aspirin Chew 324 Mg) 324 mg PO NOW STA Stop: 09/01/22 22:22 Last Admin: 09/01/22 22:28 Dose: 324 mg Documented By: PABLO Ioversol (Optiray 320 500ml) 112 ml IV ONCE ONE Stop: 09/01/22 21:29 Last Admin: 09/01/22 21:28 Dose: 112 ml Documented By: TURNER Labetalol HCl (Labetalol Hcl Iv 5 Mg/Ml 20ml) 20 mg IV NOW STA Stop: 09/01/22 22:22 Last Admin: 09/01/22 22:28 Dose: 20 mg Documented By: PABLO Co-signed By: SHUN Labetalol HCl (Labetalol Hcl 200 Mg Tab) 400 mg PO NOW STA Stop: 09/01/22 23:50 Last Admin: 09/02/22 00:17 Dose: 400 mg Documented By: SHUN Lorazepam (Lorazepam 2 Mg/1 Ml Vial) 1 mg IV NOW STA Stop: 09/01/22 20:11 Last Admin: 09/01/22 20:19 Dose: 1 mg Documented By: SHUN Imaging Data Radiologist's Impression: Chest CTA 09/01/22 20:10 CHEST CTA for PULMONARY ARTERIES CT DOSE: 948.36 mGy.cm HISTORY: Chest pain. Hyperventilating. TECHNIQUE: Multiaxial CT images of the chest were performed following the intravenous administration of contrast to evaluate the pulmonary arteries. Maximal intensity projection images were also obtained. A dose lowering technique was utilized adhering to the principles of ALARA. COMPARISON STUDY: Chest CTA 04/26/2020. FINDINGS: Prior cholecystectomy. The visualized liver and spleen are unremarkable. The thyroid gland enhances normally. Normal esophagus. No mediastinal or hilar lymphadenopathy. The heart is normal in size. Normal esophagus. No pleural or pericardial effusions. Normal caliber thoracic aorta with no evidence for dissection. No filling defects within the pulmonary arteries to suggest a pulmonary embolus. No acute fractures identified. The central airways are patent. No pneumothorax. The lungs are clear. IMPRESSION: No evidence for a pulmonary embolus. ACT 112: Negative or not required by law. Electronically signed by: Jorge Talley M.D. 09/02/2022 7:23 AM Patient: DONALDO ORLANDO (Female) : 82 Status: ER Date: 09/01/22 21:37 Room #: History: pt presents to ER reporting "Im having a heart attack" hx of CHF and Jul 30 had OK 40 mins prior to arrival and had left arm pain and crushing chest pain pt is hyperventilating at triage Slices: [id number] Priors: Tech: Vaughn Galo @ [phone] Exams: CTA CHEST Contrast: IV Amt: 112 Accession Numbers: [id number] Referring Physician: REFERRED SELF Preliminary Findings Only See Final Report For Complete Findings CTA CHEST: No CT evidence of pulmonary embolism Radiologist: Alo Allen M.D. Study ready at 21:42 and initial results transmitted at 21:51 Discharge Plan Visit Data Chief Complaint: Cardiac Assessment Stated Complaint: HIGH BLOOD PRESSRUE, CHEST PAIN ED Provider: Luis Aragon Discharge Problem: Chest pain, Elevated troponin I level, Hypertensive urgency Patient Disposition: Admitted As Inpatient Discharge Instructions Interventions: ED Discharge Assessment Last Done: 09/02/22 01:35
[2022-09-01] MEDS ORDERED: OPTIRAY 320 500ml IV ONE (21:28)
[2022-09-01] MEDS ORDERED: ASPIRIN CHEW 324 MG PO STA (22:21)
[2022-09-01] MEDS ORDERED: LABETALOL HCL IV 5 MG/ML 20ML IV STA (22:21)
--- NOTE | 2022-09-01 22:45 | History & Physical Report ---
Date of Service September 01, 2022 Assessment & Plan (1) Chest pain: Plan: Rae is a 41 year old female w/ PmHx resistant hypertension, morbid obesity, fatty liver, anxiety, osteoarthritis admitted for chest pain. Chest Pain: -EKG on arrival w/ RBBB, Left axis deviation, tachycardic to 110, QTc 465, no ST elevations. -Difficult to ascertain any viable changes w/ RBBB. -Troponin initially 8.3 on arrival but 17.1 on repeat. -BP was in 180's to 190's systolic and 100's-110's diastolic during ED stay. -Elevated troponin may be secondary to hypertensive urgency in face of provoking emotional factor however will trend troponin to rule out true ischemic event. -Ordered complete echo in the morning. -Consulted cardiology, appreciate recs. -Continue home BP medications for control, increased labetalol to 400mg BID, continue home clondidine patch .1mg, lisinopril 40mg, amlodipine 10mg, spironolactone 50mg. -Given ASA 325mg in ED. -Continue to monitor on continuous monitoring. Resistant Hypertension: -On the above 5 medications for hypertension. -Plan as above to trial increasing home labetalol to 400mg BID. -Unclear origin of resistant hypertension, obesity may play large role in it. -Cardiology consulted, will appreciate recs while inpatient. -Has follow up with cardiology at [facility] outpatient. Asthma: -Some shortness of breath with episode but likely not related to asthma. -Continued home PRN albuterol. Protrusion of Acetabulum: -Continued home gabapentin, added tylenol 650mg q4h for pain control. Sleep apnea: -CPAP ordered HS per protocol. Anxiety/PTSD: -Continue home venlafaxine. GERD: -Continue home pantoprazole. DVT Prophylaxis: SCDs F/E/N/GI: Heart healthy diet. Code status: Full code. Dispo: Med/tele. (2) Resistant hypertension: (3) Morbid obesity: (4) Extrinsic asthma: (5) Sleep apnea: (6) Anxiety: (7) Reflux esophagitis: (8) Post traumatic stress disorder: (9) Moderate recurrent major depression: History of Present Illness Chief Complaint: Chest pain Primary Care Provider: Lalo Wade MD Rae is a 41 year old female with a past medical history of resistant hypertension, morbid obesity, fatty liver, anxiety, osteoarthritis coming in to the ED for chest pain. Patient states that she has had high blood pressure issues since she was round 15 years of age coinciding with the development of kidney stones. She states that she has been on blood pressure medication since then. She has been on 5 different blood pressure medications consisting of labetalol, lisinopril, amlodipine, spironolactone, and clonidine. She states that late July she was down [place] when she had an episode of chest pain at the left chest as well as headache from high blood pressure and significant leg swelling. She states she went to the local hospital and had waited 9 hours before leaving for a different hospital (signing out AMA) due to not being seen and swelling in her legs getting worse. When she went to the new hospital she was found to have an elevated blood pressure which was brought under control and she says the EKG that was done was lost in [facility] at the time and she was discharged. She came back up to [place] and in early August she was called by the physician at the hospital she was seen at for a concerning EKG that was found worrisome for possible MD. She was told to go to the local ED or follow up with her doctor and so she went to the ED here on the 04 of August. At that time her EKG showed an incomplete RBBB without other changes and she was switched from clonidine TID to a clonidine patch. She states had not had another chest pain incident since the initial one in late July. She also has a cardiology appointment set up outpatient with [facility] for her refractory hypertension. She states that the hypertension is made worse by her hip pain and the pain she gets from kidney stones. The hip pain is from protrusion of the acetabulum and she states she is unable to get the surgery for this unless her BMI is under 30. She has tried Jardiance in the past for weight loss and had 25lb weight loss but nothing further and plateaued. She is also unable to exercise effectively from the hip pain which she describes as a sharp knife feeling when putting weight on the area. Earlier today she had an episode of chest pain at the left chest that she describes as a more dull feeling but still like something going through her chest, shortness of breath, as well as headache. This occurred after she was hav ing an argumentative conversation with someone on the phone who was hanging up on her constantly. She took her blood pressure after that and got a reading of 245/135 and came to the emergency department. In the ED she was found to have a BP of 190's/100's and given a dose of 20mg IV labetalol with subsequent decrease in pressures. WBC found to be 12.04, electrolytes WNL, kidney function WNL, AST 101, ALT 80, Alk Phos 117; CTA did not show any evidence of PE, CXR w/o any acute findings. Allergies Allergy/AdvReac Type Severity Reaction Status Date / Time bee venom protein (honey bee) Allergy Severe Anaphylaxis Verified 08/04/22 16:37 clams Allergy Severe Anaphylaxis Verified 08/04/22 16:37 coconut Allergy Severe rash if Verified 08/04/22 16:37 touched, throat closes if eaten mussels Allergy Severe Anaphylaxis Verified 08/04/22 16:37 oyster extract Allergy Severe Anaphylaxis Verified 08/04/22 16:37 scallops Allergy Severe Anaphylaxis Verified 08/04/22 16:37 lamotrigine Allergy Intermediate itching, Verified 08/04/22 16:37 rash,sob(to generic) can use brand name copper Allergy Mild rash Verified 08/04/22 16:37 nickel Allergy Mild rash Verified 08/04/22 16:37 pineapple Allergy Mild MOUTH RASH Verified 08/04/22 16:37 Home Medications Medication Instructions Recorded Confirmed Type Medical Marijuana 1 mg topical PM PRN joint pain 05/14/20 09/01/22 History mecobalamin (vitamin B12) 10,000 1,000 mcg IM MONTHLY #1 ea 11/20/20 09/01/22 Rx mcg solution for injection albuterol sulfate 90 mcg/actuation 2 puff inhalation 6XD PRN 01/19/21 09/01/22 Rx aerosol inhaler (Ventolin HFA) shortness of breath or wheezing #18 grams hydroxyzine HCl 25 mg tablet 25 mg PO BID PRN itching #180 tabs 01/19/21 09/01/22 Rx fluticasone propionate 50 1 spray intranasal DAILY PRN 02/10/21 09/01/22 History mcg/actuation nasal Allergy Symptoms spray,suspension (Flonase Allergy Relief) gabapentin 400 mg tablet 400 mg PO TID 12/10/21 09/01/22 History amlodipine 10 mg tablet (Norvasc) 10 mg PO QAM #90 tabs 03/18/22 09/01/22 Rx cholecalciferol (vitamin D3) 50 100 mcg PO QAM #90 tabs 03/18/22 09/01/22 Rx mcg (2,000 unit) tablet (Vitamin D3) furosemide 40 mg tablet (Lasix) 40 mg PO BID #180 tabs 03/18/22 09/01/22 Rx lisinopril 40 mg tablet (Zestril) 40 mg PO QAM htn #90 tabs 03/18/22 09/01/22 Rx loratadine 10 mg disintegrating 10 mg PO HS #90 tabs 03/18/22 09/01/22 Rx tablet (Claritin RediTabs) montelukast 10 mg tablet 10 mg PO QAM #90 tabs 03/18/22 09/01/22 Rx (Singulair) oxybutynin chloride 5 mg 5 mg PO PM #90 tabs 03/18/22 09/01/22 Rx tablet,extended release 24 hr pantoprazole 40 mg tablet,delayed 40 mg PO DAILY #90 tabs 03/18/22 09/01/22 Rx release spironolactone 50 mg tablet 50 mg PO QAM #90 tabs 03/18/22 09/01/22 Rx (Aldactone) venlafaxine 75 mg capsule,extended 75 mg PO PM #90 caps 03/18/22 09/01/22 Rx release 24 hr (Effexor XR) epinephrine 0.3 mg/0.3 mL 0.3 mg (0.3 mL) IM Q10M PRN 06/22/22 09/01/22 Rx injection, auto-injector (EpiPen ALLERGY REACTION #2 ea 2-Martin) cholecalciferol (vitamin D3) 1,250 50,000 unit PO WK #12 caps 07/12/22 09/01/22 Rx mcg (50,000 unit) capsule clonidine 0.1 mg/24 hr weekly 1 patch transdermal ONCE #4 ea 08/04/22 09/01/22 Rx transdermal patch fluticasone propionate 220 2 puff inhalation Q12H PRN 09/01/22 09/01/22 History mcg/actuation HFA aerosol inhaler .allergies (Flovent HFA) labetalol 300 mg tablet 300 mg PO BID BP > 180/100 09/01/22 09/01/22 History Past Med/Surg History Medical History Acute lumbar back pain Anxiety Bipolar disorder Bulging of cervical intervertebral disc ROM WNL Cervical radiculopathy at C7 Chronic bronchitis [facility] Cough COVID-19 Dysphagia resolved with EGD Encounter for screening for COVID-[address] scan 06/01/2021 Fibromyalgia GERD (gastroesophageal reflux disease) Herniated disc LUMBAR History of cervical cancer hysterectomy History of COVID-19 Apr 21, 2021 > not hospitalized > breathing difficulty, pneumonia, cough, fatigue History of kidney stones Hypertension Hypertensive urgency Increased PTH level Left knee injury Left lumbar radiculopathy Moderate recurrent major depression Morbid obesity with BMI of 60.0-69.9, adult Neuropathy arms and legs Osteoarthritis Ovarian cyst Post traumatic stress disorder Rash and nonspecific skin eruption no current rash, questionable lupus Reflux esophagitis Seasonal allergies Sinus infection history of, no current issues Sleep apnea cpap Ventral hernia Surgical History History of ankle surgery left x2 History of arthroscopy of left shoulder History of bilateral tubal ligation History of cholecystectomy History of colonoscopy with polypectomy History of endometrial ablation History of esophagogastroduodenoscopy (EGD) History of hysterectomy (02/21/12) History of knee surgery BL History of removal of ureteral stent History of surgery removal of kylee stuck inside throat History of surgical removal of ganglion cyst right wrist History of tonsillectomy History of wisdom tooth extraction S/P cystoscopy with ureteral stent placement Status post epidural steroid injection Status post myringotomy with tube placement of both ears Status post wrist surgery LEFT Family History Grandmother (Maternal) Family history of reaction to anesthesia PONV, RESPIRATORY ISSUES Grandmother Colon cancer Father Heart disease Inflammatory bowel disease Mother Inflammatory bowel disease Uncle Colon cancer Grandmother (Paternal) Myocardial infarction Grandfather (Paternal) Myocardial infarction Prostate cancer Denies family history of Ovarian cancer Breast cancer Social History Smoking Status: Never smoker Tobacco Type: Cigars Second Hand Exposure: No; Hx Alcohol Use: Yes Alcohol type: wine Hx Substance Use: Yes (topical marijuana only prn) Prescribed Medications: Marijuana Substance Use Type Other:: RX use, [employer]AM Preferred Language: Nicaraguan Communication Ability: Effective Visual Impairment: No Limitations Hearing Ability: Normal 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 Physical Exam Constitutional: WD/WN, vitals as above Obese habitus Eyes: PERRL, conjunctivae normal, anicteric sclerae Respiratory: normal respiratory effort, lungs clear to auscultation Cardiovascular: Rate/Rhythm: + tachycardic Heart Sounds: normal S1 and normal S2 No swelling at the bilateral extremities. Gastrointestinal (Abdomen): BS+, obese habitus, soft, non-tender. Skin: no rashes, warm and dry Psychiatric: A+Ox3, euthymic affect Results & Data Results & Data ([facility]) Vital Signs (Past 12 Hours) Vital Signs Temp Pulse Pulse Resp BP BP Pulse Ox 09/01/22 21:53 91 H 18 188/118 H 98 09/01/22 21:18 167/123 H 98 09/01/22 20:12 88 16 98 09/01/22 20:12 91 H 16 197/98 H 98 09/01/22 20:12 97 09/01/22 16:38 36.3 C L 117 H 20 191/108 H 96 O2 Del Method 09/01/22 21:53 Room Air 09/01/22 21:18 Room Air 09/01/22 20:12 Room Air 09/01/22 20:12 Room Air 09/01/22 20:12 Room Air 09/01/22 16:38 Room Air Supervising Physician Co-Signing Physician Notes Attending addendum: I have physically seen this patient, have supervised the medical residents activities, and agree with the H&P unless as otherwise noted. Assessment and Plan: NSTEMI/elevated troponin/uncontrolled hypertension- The patient will be admitted to telemetry for serial cardiac enzymes, serial EKG's, cardiac rhythm monitoring and a 2-D echocardiogram with Dopplers. Increase labetalol from 300 to 40 mg p.o. twice daily Continue amlodipine 10 mg every morning, clonidine patch TTS1, furosemide 40 mg p.o. twice daily, lisinopril 40 mg every morning and spironolactone 50 mg p.o. every morning. Patient has history of blood pressure reportedly has been resistant to multiple treatments Will primarily at this point concentrate on increasing negative inotropes as heart rate tends to be in the upper 70s to low 80s. Cardiology consulted Remaining orders and notations as noted Resident Activity Tracking Resident Involvement: Resident Care Provided Care Provided: Adult [facility] Medicine
[2022-09-01] MEDS ORDERED: LABETALOL HCL 200 MG TAB PO STA (23:49)
[2022-09-02] MEDS: CHECK CLONIDINE PATCH PLACEMENT SCH ×4 (01:30→23:06)
[2022-09-02] MEDS ORDERED: ONDANSETRON INJ 2 MG/ML 2 ML VIAL IV PRN (01:34)
[2022-09-02] MEDS ORDERED: ACETAMINOPHEN 325 MG TAB PO PRN (01:34)
[2022-09-02] MEDS ORDERED: ALBUTEROL HFA 8 GM INHALER INH PRN (01:34)
--- NOTE | 2022-09-02 07:24 | CT Scan Report ---
CHEST CTA for PULMONARY ARTERIES CT DOSE: 948.36 mGy.cm HISTORY: Chest pain. Hyperventilating. TECHNIQUE: Multiaxial CT images of the chest were performed following the intravenous administration of contrast to evaluate the pulmonary arteries. Maximal intensity projection images were also obtaine d. A dose lowering technique was utilized adhering to the principles of ALARA. COMPARISON STUDY: Chest CTA 04/26/2020. FINDINGS: Prior cholecystectomy. The visualized liver and spleen are unremarkable. The thyroid gland enhances normally. Normal esophagus. No mediastinal or hilar lymphadenopathy. The heart is normal in size. Normal esophagus. No pleural or pericardial effusions. Normal caliber thoracic aorta with no ev idence for dissection. No filling defects within the pulmonary arteries to suggest a pulmonary embolu s. No acute fractures identified. The central airways are patent. No pneumothorax. The lungs are viraj r. IMPRESSION: No evidence for a pulmonary embolus. ACT 112: Negative or not required by law. Electronically signed by: Jorge aTlley M.D. 09/02/2022 7:23 AM
[2022-09-02] MEDS: GABAPENTIN 400 MG CAP PO SCH ×3 (09:16→20:06)
[2022-09-02] MEDS: amLODIPine BESYLATE 5 MG TAB PO SCH (09:16)
[2022-09-02] MEDS: lisinopril 40 MG TAB PO SCH (09:19)
[2022-09-02] MEDS: PANTOprazole 40 MG TAB PO SCH (09:20)
[2022-09-02] MEDS: SPIRONOLACTONE 25 MG TAB PO SCH (09:21)
[2022-09-02] MEDS: LABETALOL HCL 200 MG TAB PO SCH ×2 (09:24→20:07)
--- NOTE | 2022-09-02 10:33 | XCELERA ---
[id number]
--- NOTE | 2022-09-02 11:12 | Cardiology Consultation ---
Date of Consultation September 02, 2022 Assessment & Plan (1) Chest pain: -will investigate her chest pain syndrome in very mildly elevated troponin with a dobutamine stress test. -suspect minor troponin elevation related to her significant hypertension at presentation (supply demand mismatch). (2) Resistant hypertension: -adequate control currently. -encouraged to keep appoint with senior java data architect at the [facility] later this month. History of Present Illness Attending Physician: Esdras Briggs MD History of Present Illness Mrs. Arreguin 41-year-old female admitted yesterday with a chest pain syndrome. This consultation was ordered to assist in her management. Of note, she is scheduled to follow-up with Cardiology the [facility] for this month. The patient was in her usual state of health until approximately 4:15 p.m. yesterday. She began to experience a dull ache in her left chest which radiated to the left neck and associated shortness of breath and a headache. The patient checked her blood pressure noted to be 245/135. Therefore, she proceeded medially to the emergency. She arrived approximately 4:30 p.m. according to her account. She was given intravenous labetalol and her blood pressure decreased to 190/100. By 6:00 p.m., her chest discomfort had resolved completely. Fortunately, there were no acute EKG changes and her initial high sensitivity troponin was normal. She has never experienced chest discomfort as described previously. She did undergo a normal dobutamine stress test at 86% of the max predicted heart rate back in April 2020. This was because of a chest pain syndrome different than that described above. The patient has had difficulty in controlling her blood pressure. She currently uses labetalol p.r.n. elevated blood pressures. As above, she has an upcoming appointment at the [facility]. Currently, patient is resting comfortably in bed without complaints. Past medical and surgical history 1. Hypertension 2. Incomplete RBBB 3. GERD 4. Eosinophilic esophagitis 5. Fatty liver 6. Asthma 7. Nephrolithiasis 8. Morbid obesity 9. Obstructive sleep apnea 10. Anxiety/depression 11. Post traumatic stress disorder 12. Fibromyalgia 13. 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 Ovarian cyst 16. Cervical carcinoma 17. YELENA-January 2010 18. Tubal ligation 19. Cholecystectomy 20. Tonsillectomy 20. Left wrist surgery 20. Left rotator cuff repair 20. Left ankle surgery 20. 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 Allergies Allergy/AdvReac Type Severity Reaction Status Date / Time bee venom protein (honey bee) Allergy Severe Anaphylaxis Verified 08/04/22 16:37 clams Allergy Severe Anaphylaxis Verified 08/04/22 16:37 coconut Allergy Severe rash if Verified 08/04/22 16:37 touched, throat closes if eaten mussels Allergy Severe Anaphylaxis Verified 08/04/22 16:37 oyster extract Allergy Severe Anaphylaxis Verified 08/04/22 16:37 scallops Allergy Severe Anaphylaxis Verified 08/04/22 16:37 lamotrigine Allergy Intermediate itching, Verified 08/04/22 16:37 rash,sob(to generic) can use brand name copper Allergy Mild rash Verified 08/04/22 16:37 nickel Allergy Mild rash Verified 08/04/22 16:37 pineapple Allergy Mild MOUTH RASH Verified 08/04/22 16:37 Home Medications Medication Instructions Recorded Confirmed Type Medical Marijuana 1 mg topical PM PRN joint pain 05/14/20 09/01/22 History mecobalamin (vitamin B12) 10,000 1,000 mcg IM MONTHLY #1 ea 11/20/20 09/01/22 Rx mcg solution for injection albuterol sulfate 90 mcg/actuation 2 puff inhalation 6XD PRN 01/19/21 09/01/22 Rx aerosol inhaler (Ventolin HFA) shortness of breath or wheezing #18 grams hydroxyzine HCl 25 mg tablet 25 mg PO BID PRN itching #180 tabs 01/19/21 09/01/22 Rx fluticasone propionate 50 1 spray intranasal DAILY PRN 02/10/21 09/01/22 History mcg/actuation nasal Allergy Symptoms spray,suspension (Flonase Allergy Relief) gabapentin 400 mg tablet 400 mg PO TID 12/10/21 09/01/22 History amlodipine 10 mg tablet (Norvasc) 10 mg PO QAM #90 tabs 03/18/22 09/01/22 Rx cholecalciferol (vitamin D3) 50 100 mcg PO QAM #90 tabs 03/18/22 09/01/22 Rx mcg (2,000 unit) tablet (Vitamin D3) furosemide 40 mg tablet (Lasix) 40 mg PO BID #180 tabs 03/18/22 09/01/22 Rx lisinopril 40 mg tablet (Zestril) 40 mg PO QAM htn #90 tabs 03/18/22 09/01/22 Rx loratadine 10 mg disintegrating 10 mg PO HS #90 tabs 03/18/22 09/01/22 Rx tablet (Claritin RediTabs) montelukast 10 mg tablet 10 mg PO QAM #90 tabs 03/18/22 09/01/22 Rx (Singulair) oxybutynin chloride 5 mg 5 mg PO PM #90 tabs 03/18/22 09/01/22 Rx tablet,extended release 24 hr pantoprazole 40 mg tablet,delayed 40 mg PO DAILY #90 tabs 03/18/22 09/01/22 Rx release spironolactone 50 mg tablet 50 mg PO QAM #90 tabs 03/18/22 09/01/22 Rx (Aldactone) venlafaxine 75 mg capsule,extended 75 mg PO PM #90 caps 03/18/22 09/01/22 Rx release 24 hr (Effexor XR) epinephrine 0.3 mg/0.3 mL 0.3 mg (0.3 mL) IM Q10M PRN 06/22/22 09/01/22 Rx injection, auto-injector (EpiPen ALLERGY REACTION #2 ea 2-Martin) cholecalciferol (vitamin D3) 1,250 50,000 unit PO WK #12 caps 07/12/22 09/01/22 Rx mcg (50,000 unit) capsule clonidine 0.1 mg/24 hr weekly 1 patch transdermal ONCE #4 ea 08/04/22 09/01/22 Rx transdermal patch fluticasone propionate 220 2 puff inhalation Q12H PRN 09/01/22 09/01/22 History mcg/actuation HFA aerosol inhaler .allergies (Flovent HFA) labetalol 300 mg tablet 300 mg PO BID BP > 180/100 09/01/22 09/01/22 History Patient History Medical History Acute lumbar back pain Anxiety Bipolar disorder Bulging of cervical intervertebral disc ROM WNL Cervical radiculopathy at C7 Chronic bronchitis [facility] Cough COVID-19 Dysphagia resolved with EGD Encounter for screening for COVID-[address] scan 06/01/2021 Fibromyalgia GERD (gastroesophageal reflux disease) Herniated disc LUMBAR History of cervical cancer hysterectomy History of COVID-19 Apr 21, 2021 > not hospitalized > breathing difficulty, pneumonia, cough, fatigue History of kidney stones Hypertension Hypertensive urgency Increased PTH level Left knee injury Left lumbar radiculopathy Moderate recurrent major depression Morbid obesity with BMI of 60.0-69.9, adult Neuropathy arms and legs Osteoarthritis Ovarian cyst Post traumatic stress disorder Rash and nonspecific skin eruption no current rash, questionable lupus Reflux esophagitis Seasonal allergies Sinus infection history of, no current issues Sleep apnea cpap Ventral hernia Surgical History History of ankle surgery left x2 History of arthroscopy of left shoulder History of bilateral tubal ligation History of cholecystectomy History of colonoscopy with polypectomy History of endometrial ablation History of esophagogastroduodenoscopy (EGD) History of hysterectomy (02/21/12) History of knee surgery BL History of removal of ureteral stent History of surgery removal of kylee stuck inside throat History of surgical removal of ganglion cyst right wrist History of tonsillectomy History of wisdom tooth extraction S/P cystoscopy with ureteral stent placement Status post epidural steroid injection Status post myringotomy with tube placement of both ears Status post wrist surgery LEFT Family History Grandmother (Maternal) Family history of reaction to anesthesia PONV, RESPIRATORY ISSUES Grandmother Colon cancer Father Heart disease Inflammatory bowel disease Mother Inflammatory bowel disease Uncle Colon cancer Grandmother (Paternal) Myocardial infarction Grandfather (Paternal) Myocardial infarction Prostate cancer Denies family history of Ovarian cancer Breast cancer Social History Smoking Status: Never smoker Tobacco Type: Cigars Second Hand Exposure: No; Do You Dip or Chew Tobacco: No; Hx Alcohol Use: Yes Alcohol type: wine Hx Substance Use: Yes (topical marijuana only prn) Prescribed Medications: Marijuana Substance Use Type Other:: RX use, [employer]AM Preferred Language: Japanese Communication Ability: Effective Visual Impairment: No Limitations Hearing Ability: Normal Physician Office Specialist Required: No Beliefs That Will Affect Care: None Current Living Situation: Spouse and Family Current Living Situation Comment: Lives with and 2 kids and sister current occupational status: employed Feels Safe at Home: Yes Safety Concerns: Feels Safe At This Time Dental Care, Regularly: Yes Physical Activity Frequency: Daily Physical Activity Frequency Comment: SWIMMING Seatbelt Use: never Sunscreen Use: Yes Assistive Devices: Cane and Glasses Physical Exam Physical Exam: In general this is an obese white female no acute distress. HEENT exam is negative. Neck is supple with full carotid upstrokes. No carotid bruits. Jugular is pressure is flat at 90. There is no thyromegaly. Cardiovascular exam reveals a regular rhythm with normal S1-S2. Heart sounds are distant. No obvious murmurs. Lungs are clear without rales, rhonchi, or wheezes. Abdomen is obese without bruits. Extremities reveal intact radial artery pulses bilaterally. There is trace pretibial edema. Results & Data ([facility]) Vital Signs (Past 12 Hours) Vital Signs Pulse Pulse Resp BP BP Pulse Ox O2 Del Method 09/02/22 09:19 152/84 H 09/02/22 09:04 96 Room Air 09/02/22 09:01 23 96 Room Air 09/02/22 09:01 110/54 L 09/02/22 09:00 23 96 Room Air 09/02/22 08:46 120/56 L 09/02/22 08:46 22 95 Room Air 09/02/22 08:31 22 94 Room Air 09/02/22 08:31 124/55 L 09/02/22 08:30 26 H 95 Room Air 09/02/22 08:15 106/78 09/02/22 08:15 26 H 95 09/02/22 08:00 111/73 09/02/22 07:45 23 92 09/02/22 07:45 140/64 09/02/22 07:31 22 95 09/02/22 07:31 106/56 L 09/02/22 07:30 22 94 09/02/22 07:17 20 09/02/22 07:29 95 Room Air 09/02/22 06:30 28 H 09/02/22 06:30 119/68 09/02/22 06:15 104/51 L 09/02/22 06:15 19 09/02/22 06:00 108/46 L 09/02/22 05:46 18 105/55 L 09/02/22 05:30 20 129/56 L 09/02/22 05:16 24 106/54 L 09/02/22 05:00 22 115/73 09/02/22 04:46 23 109/83 09/02/22 04:30 24 120/85 09/02/22 04:16 23 153/91 H 09/02/22 04:01 94 H 21 96/58 L 09/02/22 04:00 99 H 21 09/02/22 03:46 97 H 19 97/66 L 09/02/22 03:31 93 H 19 93/45 L 09/02/22 03:15 82 23 94/56 L 09/02/22 03:00 85 23 118/56 L 09/02/22 02:45 87 22 111/56 L 09/02/22 02:30 84 22 110/69 93 Room Air 09/02/22 02:15 91 H 22 127/58 L 90 Room Air 09/02/22 02:00 88 23 125/64 91 Room Air 09/02/22 01:46 85 24 102/45 L 09/02/22 01:30 94 H 21 152/76 H 96 Room Air 09/02/22 01:23 89 24 123/70 96 Room Air 09/02/22 01:01 94 H 22 09/02/22 00:45 88 23 125/95 09/02/22 00:30 94 H 22 09/02/22 00:15 100 H 24 177/85 H 09/02/22 00:00 91 H 19 159/88 H 09/01/22 23:51 90 22 156/93 H 09/01/22 23:31 91 H 23 123/71 98 Room Air 09/01/22 23:30 85 17 97 Room Air 09/01/22 23:15 89 21 156/81 H 99 Room Air 09/02/22 01:34 85 18 111/56 L 98 Room Air 09/02/22 01:34 09/02/22 01:23 93 H 12 123/70 96 Room Air 09/02/22 00:00 99 H 18 177/85 H 98 Room Air O2 Del Method O2 Flow Rate 09/02/22 09:19 09/02/22 09:04 09/02/22 09:01 09/02/22 09:01 09/02/22 09:00 09/02/22 08:46 09/02/22 08:46 09/02/22 08:31 09/02/22 08:31 09/02/22 08:30 09/02/22 08:15 09/02/22 08:15 09/02/22 08:00 09/02/22 07:45 09/02/22 07:45 09/02/22 07:31 09/02/22 07:31 09/02/22 07:30 09/02/22 07:17 09/02/22 07:29 09/02/22 06:30 09/02/22 06:30 09/02/22 06:15 09/02/22 06:15 09/02/22 06:00 09/02/22 05:46 09/02/22 05:30 09/02/22 05:16 09/02/22 05:00 09/02/22 04:46 09/02/22 04:30 09/02/22 04:16 09/02/22 04:01 09/02/22 04:00 09/02/22 03:46 09/02/22 03:31 09/02/22 03:15 09/02/22 03:00 09/02/22 02:45 09/02/22 02:30 09/02/22 02:15 09/02/22 02:00 09/02/22 01:46 09/02/22 01:30 09/02/22 01:23 09/02/22 01:01 09/02/22 00:45 09/02/22 00:30 09/02/22 00:15 09/02/22 00:00 09/01/22 23:51 09/01/22 23:31 09/01/22 23:30 09/01/22 23:15 09/02/22 01:34 09/02/22 01:34 Room Air 98 09/02/22 01:23 09/02/22 00:00 Laboratory Results CBC notes hemoglobin 15.6, hematocrit 46.8, white count 12.04, and platelet count 427 1000. Electrolytes note a sodium 139, potassium 3.9, chloride 106, bicarb 25, BUN 10, creatinine 0.68, and glucose of 205. AST is elevated 101 with an ALT of 80. Initial high sensitivity troponin was 8.3 with follow-up values of 17.1 and 16.1. Diagnostic Findings EKG notes sinus tachycardia with a left atrial abnormality and a right-sided conduction delay. Echocardiogram notes normal systolic function with ejection fraction of 60-65%. No significant valvular pathology. This is unchanged compared with the study performed in September 2016. Chest x-ray shows no acute disease. CT scan of the chest showed no evidence of pulmonary embolism. PG Care Time/CCT Total # of Minutes Spent Total Time Spent with Patient: Total time spent is greater than 50% in coordination of care (as documented) at patient's floor/unit and/or counseling patient: Coding Level of Care Code INP/OBS CONSULT LVL 4, 60 MIN Diagnoses Chest pain R07.9 Resistant hypertension I10
[2022-09-02] MEDS: FUROSEMIDE 40 MG TAB PO SCH (11:28)
[2022-09-02] MEDS ORDERED: ATROPINE SULFATE 0.1 MG/ML 10ML SYR IV ONE (12:28)
[2022-09-02] MEDS ORDERED: METOPROLOL TARTRATE 1 MG/ML VIAL IV ONE ×2 (12:28→13:01)
[2022-09-02] MEDS ORDERED: DOBUTamine HCL 12.5 MG/ML 20 ML VIAL IV ONE (12:29)
[2022-09-02] MEDS ORDERED: NITROGLYCERIN SL 0.4 MG/TAB TAB ONE (12:29)
--- NOTE | 2022-09-02 13:36 | XCELERA ---
[id number]
--- NOTE | 2022-09-02 14:03 | Electrocardiogram Report ---
Test Reason : Blood Pressure : / mmHG Vent. Rate : 110 BPM Atrial Rate : 110 BPM P-R Int : 122 ms QRS Dur : 086 ms QT Int : 344 ms P-R-T Axes : 041 -56 031 degrees QTc Int : 465 ms Poor data quality, interpretation may be adversely affected Sinus tachycardia Possible Left atrial enlargement Left axis deviation RSR' or QR pattern in V1 suggests right ventricular conduction delay Abnormal ECG When compared with ECG of 04-AUG-2022 17:35, No significant change was found Confirmed by Luis Armenta ([id number]) on 09/02/2022 2:03:20 PM Referred By: REFERRED SELF Confirmed By:Luis Armenta
[2022-09-02] MEDS ORDERED: VENLAFAXINE HCL XR 75 MG CAPXR PO SCH (21:00)
[2022-09-02] MEDS ORDERED: OXYBUTYNIN CHLORIDE XL 5 MG TABCR PO SCH (21:00)
--- NOTE | 2022-09-02 23:53 | Hospitalist Progress Note ---
Date of Service September 02, 2022 Assessment & Plan (1) Chest pain: Plan: (1) Chest pain: Plan: Rae is a 41 year old female w/ PmHx resistant hypertension, morbid obesity, fatty liver, anxiety, osteoarthritis admitted for chest pain. Chest Pain: -EKG on arrival w/ RBBB, Left axis deviation, tachycardic to 110, QTc 465, no ST elevations. -Difficult to ascertain any viable changes w/ RBBB. -Troponin initially 8.3 on arrival but 17.1 on repeat. -BP was in 180's to 190's systolic and 100's-110's diastolic during ED stay. -Elevated troponin may be secondary to hypertensive urgency in face of provoking emotional factor however will trend troponin to rule out true ischemic event. -Ordered complete echo in the morning. -Consulted cardiology, appreciate recs. -Continue home BP medications for control, increased labetalol to 400mg BID, continue home clondidine patch .1mg, lisinopril 40mg, amlodipine 10mg, spironolactone 50mg. -Given ASA 325mg in ED. -Continue to monitor on continuous monitoring. Resistant Hypertension: -On the above 5 medications for hypertension. -Plan as above to trial increasing home labetalol to 400mg BID. -Unclear origin of resistant hypertension, obesity may play large role in it. -Cardiology consulted, will appreciate recs while inpatient. -Has follow up with cardiology at [facility] outpatient. Asthma: -Some shortness of breath with episode but likely not related to asthma. -Continued home PRN albuterol. Protrusion of Acetabulum: -Continued home gabapentin, added tylenol 650mg q4h for pain control. Sleep apnea: -CPAP ordered HS per protocol. Anxiety/PTSD: -Continue home venlafaxine. GERD: -Continue home pantoprazole. (2) Elevated troponin I level: (3) Hypertensive urgency: Admission and Anticipated Discharge Date Admission Date: September 01, 2022 Subjective Patient reports improvement in chest discomfort No shortness of breath or chest pain at the time my evaluation Patient still reports some anxiety symptoms Physical Exam Physical Exam: Head and ENT no thyroid enlargement trachea midline Cardiovascular S1-S2 are normal no S3 Lungs bilateral air entry fair no wheezing Abdomen soft nondistended positive bowel sounds no rebound tenderness Extremity shows trace edema Neurologically no focal deficits Skin shows no rash no cyanosis Results & Data Results & Data ([facility]) Vital Signs (Past 12 Hours) Vital Signs Temp Pulse Pulse Pulse Resp BP BP 09/02/22 22:02 82 09/02/22 23:07 37.2 C 79 18 128/79 09/02/22 20:26 77 09/02/22 20:05 36.8 C 78 16 124/84 09/02/22 19:00 85 14 09/02/22 18:30 89 21 09/02/22 18:29 164/98 H 09/02/22 18:29 91 H 21 09/02/22 18:00 86 20 09/02/22 17:30 85 20 09/02/22 17:11 83 18 09/02/22 17:11 160/85 H 09/02/22 17:04 90 20 09/02/22 16:30 87 09/02/22 16:00 81 23 09/02/22 15:30 86 24 09/02/22 15:00 88 21 09/02/22 18:30 91 H 16 164/98 H 09/02/22 17:15 88 16 160/85 H 09/02/22 14:33 94 H 14 09/02/22 14:00 91 H 24 130/81 09/02/22 13:45 95 H 21 09/02/22 13:43 139/82 Pulse Ox O2 Del Method 09/02/22 22:02 09/02/22 23:07 96 Room Air 09/02/22 20:26 09/02/22 20:05 96 Room Air 09/02/22 19:00 09/02/22 18:30 09/02/22 18:29 09/02/22 18:29 09/02/22 18:00 09/02/22 17:30 09/02/22 17:11 09/02/22 17:11 09/02/22 17:04 09/02/22 16:30 09/02/22 16:00 09/02/22 15:30 09/02/22 15:00 09/02/22 18:30 98 Room Air 09/02/22 17:15 98 Room Air 09/02/22 14:33 09/02/22 14:00 98 Room Air 09/02/22 13:45 09/02/22 13:43 PG Care Time/CCT Total # of Minutes Spent Total Time Spent with Patient: Total time spent is greater than 50% in coordination of care (as documented) at patient's floor/unit and/or counseling patient: Coding Level of Care Code 16497 SUB INP/OBS CARE 2/35MIN Diagnoses Chest pain R07.9 Chest pain type: unspecified Elevated troponin I level R77.8 Hypertensive urgency I16.0 (1) Chest pain Chest pain type: unspecified Qualified Code(s): R07.9 - Chest pain, un specified
--- NOTE | 2022-09-03 03:13 | Billing Data ---
Date of Service September 03, 2022 Coding Level of Care Code 90175 INT INP/OBS CARE
[2022-09-03] MEDS: CHECK CLONIDINE PATCH PLACEMENT SCH (08:27)
[2022-09-03] MEDS: GABAPENTIN 400 MG CAP PO SCH (08:28)
[2022-09-03] MEDS: FUROSEMIDE 40 MG TAB PO SCH (08:28)
[2022-09-03] MEDS: amLODIPine BESYLATE 5 MG TAB PO SCH (08:29)
[2022-09-03] MEDS: PANTOprazole 40 MG TAB PO SCH (08:29)
[2022-09-03] MEDS: lisinopril 40 MG TAB PO SCH (08:29)
[2022-09-03] MEDS: LABETALOL HCL 200 MG TAB PO SCH (08:29)
[2022-09-03] MEDS: SPIRONOLACTONE 25 MG TAB PO SCH (08:29)
[2022-09-03 08:32] LABS: Hematocrit (blood only) 42.2 % (37.0-47.0); Hemoglobin 13.9 g/dl (12.0-16.0); Mean Corpuscular Hemoglobin 28.9 pg (25.0-34.0); Mean Corpuscular Hgb Conc 32.9 g/dL (32.0-36.0); Mean Corpuscular Volume 87.7 fL (80.0-100.0); Mean Platelet Volume 9.9 fL (9.4-12.4); Platelet Count 379 K/uL (130-400); RDW Coefficient of Variation 14.6 % (11.5-14.5); RDW Standard Deviation 46.7 fL (36.4-46.3); Red Blood Count 4.81 M/uL (4.20-5.40); White Blood Count 10.31 K/ul (4.8-10.8)
[2022-09-03 09:26] LABS: Creatinine Clr Calc Pharmacy 151.3 ml/min; Est GFR (African American) 107.8 ml/min; Potassium 4.1 mmol/L (3.5-5.1)
[2022-09-03 12:18] LABS: Calcium 9.2 mg/dl (8.5-10.1)
--- NOTE | 2022-09-03 13:10 | Discharge Summary ---
Date of Service September 03, 2022 Admission HPI Per Admitting Provider Rae is a 41 year old female with a past medical history of resistant hypertension, morbid obesity, fatty liver, anxiety, osteoarthritis coming in to the ED for chest pain. Patient states that she has had high blood pressure issues since she was round 15 years of age coinciding with the development of kidney stones. She states that she has been on blood pressure medication since then. She has been on 5 different blood pressure medications consisting of labetalol, lisinopril, amlodipine, spironolactone, and clonidine. She states that late July she was down [place] when she had an episode of chest pain at the left chest as well as headache from high blood pressure and significant leg swelling. She states she went to the local hospital and had waited 9 hours before leaving for a different hospital (signing out AMA) due to not being seen and swelling in her legs getting worse. When she went to the new hospital she was found to have an elevated blood pressure which was brought under control and she says the EKG that was done was lost in [facility] at the time and she was discharged. She came back up to [place] and in early August she was called by the physician at the hospital she was seen at for a concerning EKG that was found worrisome for possible MA. She was told to go to the local ED or follow up with her doctor and so she went to the ED here on the 04 of August. At that time her EKG showed an incomplete RBBB without other changes and she was switched from clonidine TID to a clonidine patch. She states had not had another chest pain incident since the initial one in late July. She also has a cardiology appointment set up outpatient with [facility] for her refractory hypertension. She states that the hypertension is made worse by her hip pain and the pain she gets from kidney stones. The hip pain is from protrusion of the acetabulum and she states she is unable to get the surgery for this unless her BMI is under 30. She has tried Jardiance in the past for weight loss and had 25lb weight loss but nothing further and plateaued. She is also unable to exercise effectively from the hip pain which she describes as a sharp knife feeling when putting weight on the area. Earlier today she had an episode of chest pain at the left chest that she describes as a more dull feeling but still like something going through her chest, shortness of breath, as well as headache. This occurred after she was having an argumentative conversation with someone on the phone who was hanging up on her constantly. She took her blood pressure after that and got a reading of 245/135 and came to the emergency department. In the ED she was found to have a BP of 190's/100's and given a dose of 20mg IV labetalol with subsequent decrease in pressures. WBC found to be 12.04, electrolytes WNL, kidney function WNL, AST 101, ALT 80, Alk Phos 117; CTA did not show any evidence of PE, CXR w/o any acute findings. Principal Diagnosis atypical chest pain Discharge Exam Head and ENT no thyroid enlargement trachea midline Cardiovascular S1-S2 are normal no S3 Lungs bilateral air entry fair no wheezing Abdomen soft nondistended positive bowel sounds no rebound tenderness Extremity shows trace edema Neurologically no focal deficits Skin shows no rash no cyanosis Discharge Data Allergies Allergy/AdvReac Type Severity Reaction Status Date / Time bee venom protein (honey bee) Allergy Severe Anaphylaxis Verified 08/04/22 16:37 clams Allergy Severe Anaphylaxis Verified 08/04/22 16:37 coconut Allergy Severe rash if Verified 08/04/22 16:37 touched, throat closes if eaten mussels Allergy Severe Anaphylaxis Verified 08/04/22 16:37 oyster extract Allergy Severe Anaphylaxis Verified 08/04/22 16:37 scallops Allergy Severe Anaphylaxis Verified 08/04/22 16:37 lamotrigine Allergy Intermediate itching, Verified 08/04/22 16:37 rash,sob(to generic) can use brand name copper Allergy Mild rash Verified 08/04/22 16:37 nickel Allergy Mild rash Verified 08/04/22 16:37 pineapple Allergy Mild MOUTH RASH Verified 08/04/22 16:37 Consultations 09/01/22 22:28 ED Decision to Admit Stat 09/02/22 01:34 Consult Cardiology Routine Ordered Studies 09/01/22 20:10 CT angio chest PE protocol Urgent Hospital Course (1) Chest pain: Rae is a 41 year old female w/ PmHx resistant hypertension, morbid obesity, fatty liver, anxiety, osteoarthritis admitted for chest pain. Chest Pain: -EKG on arrival w/ RBBB, Left axis deviation, tachycardic to 110, QTc 465, no ST elevations. -Difficult to ascertain any viable changes w/ RBBB. -Troponin initially 8.3 on arrival but 17.1 on repeat. -BP was in 180's to 190's systolic and 100's-110's diastolic during ED stay. -Elevated troponin may be secondary to hypertensive urgency in face of provoking emotional factor however will trend troponin to rule out true ischemic event. -Ordered complete echo in the morning. -Consulted cardiology, appreciate recs. -Continue home BP medications for control, increased labetalol to 400mg BID, continue home clondidine patch .1mg, lisinopril 40mg, amlodipine 10mg, spironolactone 50mg. -Given ASA 325mg in ED. -Continue to monitor on continuous monitoring. Resistant Hypertension: -On the above 5 medications for hypertension. -Plan as above to trial increasing home labetalol to 400mg BID. -Unclear origin of resistant hypertension, obesity may play large role in it. -Cardiology consulted, will appreciate recs while inpatient. -Has follow up with cardiology at [facility] outpatient. Asthma: -Some shortness of breath with episode but likely not related to asthma. -Continued home PRN albuterol. Protrusion of Acetabulum: -Continued home gabapentin, added tylenol 650mg q4h for pain control. Sleep apnea: -CPAP ordered HS per protocol. Anxiety/PTSD: -Continue home venlafaxine. GERD: -Continue home pantoprazole. 2/3- pt had no cp reported sice admission sbp less than 140 during past 24 hrs (2) Resistant hypertension: (3) Morbid obesity: (4) Extrinsic asthma: (5) Sleep apnea: (6) Anxiety: (7) Reflux esophagitis: (8) Post traumatic stress disorder: (9) Moderate recurrent major depression: Total Time Total Time Spent Total Time Spent (In Minutes): 45 Discharge Plan Discharge Items Patient Disposition: Home - Self-Care Reason For Visit: CHEST PAIN Discharge Diagnosis: atypical chest pain Activity: Per Instructions section Non-emergency contact: Primary Care Provider Call non-emergency contact if: your symptoms worsen Follow-up/Referrals: Lalo Wade MD [Primary Care Provider] - Diet: Heart Healthy Addtl Attending Provider Instructions: f/u pcp - week keep appt with [facility] for htn mgmt as scheduled in 2 weeks Pending Studies at Discharge: No Stand-Alone Forms: [employer], Smoking Cessation Medications and DC Order Prescriptions: Continued mecobalamin (vitamin B12) 10,000 mcg recon soln 1,000 mcg IM MONTHLY Qty: 1 2RF albuterol sulfate [Ventolin HFA] 90 mcg/actuation HFA aerosol inhaler 2 puff inhalation 6XD PRN (Reason: shortness of breath or wheezing) Qty: 18 5RF hydroxyzine HCl 25 mg tablet 25 mg PO BID PRN (Reason: itching) Qty: 180 3RF epinephrine [EpiPen 2-Martin] 0.3 mg/0.3 mL auto-injector 0.3 mg IM Q10M PRN (Reason: ALLERGY REACTION) Qty: 2 0RF Rx Instructions: Until response cholecalciferol (vitamin D3) 1,250 mcg (50,000 unit) capsule 50,000 unit PO WK Qty: 12 3RF amlodipine [Norvasc] 10 mg tablet 10 mg PO QAM Qty: 90 3RF cholecalciferol (vitamin D3) [Vitamin D3] 50 mcg (2,000 unit) tablet 100 mcg PO QAM Qty: 90 3RF furosemide [Lasix] 40 mg tablet 40 mg PO BID Qty: 180 3RF lisinopril [Zestril] 40 mg tablet 40 mg PO QAM Qty: 90 3RF loratadine [Claritin RediTabs] 10 mg tablet,disintegrating 10 mg PO HS Qty: 90 3RF montelukast [Singulair] 10 mg tablet 10 mg PO QAM Qty: 90 3RF oxybutynin chloride 5 mg tablet extended release 24hr 5 mg PO PM Qty: 90 3RF pantoprazole 40 mg tablet,delayed release (DR/EC) 40 mg PO DAILY Qty: 90 3RF spironolactone [Aldactone] 50 mg tablet 50 mg PO QAM Qty: 90 3RF venlafaxine [Effexor XR] 75 mg capsule,extended release 24hr 75 mg PO PM Qty: 90 3RF gabapentin 400 mg tablet 400 mg PO TID Medical Marijuana 1 mg topical PM PRN (Reason: joint pain) Rx Instructions: USES FOR JOINT PAIN fluticasone propionate [Flonase Allergy Relief] 50 mcg/actuation spray,suspension 1 spray INTNAS DAILY PRN (Reason: Allergy Symptoms) Rx Instructions: Administer into each nostril clonidine 0.1 mg/24 hr patch weekly 1 patch transdermal ONCE Qty: 4 0RF fluticasone propionate [Flovent HFA] 220 mcg/actuation HFA aerosol inhaler 2 puff inhalation Q12H PRN (Reason: .allergies) labetalol 300 mg tablet 300 mg PO BID Discharge Orders: Discharge Order (Routine); Ordered 09/03/22 Ordered By: Esdras Briggs Admission Data Admit Date/Time: 09/01/22 23:37 Attending Provider: Esdras Briggs Admit Provider: Jenaro Lebron Primary Care Provider: Lalo Wade V. Other Providers: Bart Calabrese ; Mane Cortes ; Kendall Alvarado ; Luis Armenta ; Remi Mehta ; Fidel De León ; Abiodun Sorto Jr ; Rudi Minaya ; Rae Monzon ; Ebonie Seay ; [place] ; Michael Rosales ; Sonido Jacobo ; Rhianna Andrews ; Veronica Palacios ; Charbel Brand ; Ryan Ashley ; Jack Carranza ; Remi Reyes V. Coding Level of Care Code HOSP INP/OBS DISCH >30 MIN Diagnoses Chest pain R07.9 Resistant hypertension I10 Morbid obesity E66.01 Extrinsic asthma J45.909 Sleep apnea G47.30 Anxiety F41.9 Reflux esophagitis K21.0 Post traumatic stress disorder F43.10 Moderate recurrent major depression F33.1
[2022-09-06] MEDS ORDERED: cloNIDine HCL 0.1 MG/24 HR TRANSDERM SYS TD SCH (09:00)
== END 2022-09-03 14:58 | disposition home or self-care (01) | DRG 313 ==
LOC: ED 16:23 → EDINP 23:37 → INTOOBSV 23:37 → SUATTDRO 23:37 → EDINP 09-02 01:35 → 2W 09-02 19:59

== ENCOUNTER 2024-04-21 14:44 | Observation (INO) ==
--- NOTE | 2024-04-21 15:18 | Emergency Department Note ---
History of Present Illness General Chief complaint: Cardiac Assessment Stated complaint: FIBRO, POSSIBLE MINI HEART ATTACK Time Seen by Provider: 04/21/24 15:04 Source: patient, RN notes reviewed and old records reviewed (-primary care office visit for radiculopathy of her neck) Mode of arrival: ambulatory Limitations: no limitations History of Present Illness Maximum Pain Intensity: 6 This patient has a very complex medical history, comes in with multiple complaints. She does wear a biometric blood pressure monitoring at home and her blood pressure was 285/153 and they called her and told her to come to the hospital she says she is feels mildly blurred in her left eyes she has had pain to her neck and chest as well she does have a history of having coronary artery disease she also has history of fibromuscular dysplasia and significant hypertension. No fall or trauma she did have mycoplasma pneumonia several months ago and has a chronic cough since then. She describes it as a sharp pain in her chest. It is nonpleuritic. No history of PE. She describes her eye as seen circles mostly laterally no flash of light. No eye pain or trauma Home Medications Medication Instructions Recorded Confirmed Type Medical Marijuana 1 mg topical PM PRN joint pain 05/14/20 04/21/24 History epinephrine 0.3 mg/0.3 mL 0.3 mg (0.3 mL) IM Q10M PRN 07/13/23 04/21/24 Rx injection, auto-injector (EpiPen ALLERGY REACTION #2 ea 2-Martin) mecobalamin (vitamin B12) 10,000 1,000 mcg IM MONTHLY #1 ea 08/25/23 04/21/24 Rx mcg solution for injection valsartan 320 mg tablet 320 mg PO DAILY #90 tabs 01/16/24 04/21/24 Rx amlodipine 10 mg tablet (Norvasc) 10 mg PO QAM #90 tabs 01/17/24 04/21/24 Rx furosemide 20 mg tablet 40 mg PO BID 02/20/24 04/21/24 History oxybutynin chloride 5 mg 5 mg PO PM PRN PER PT "USES PRN". 02/20/24 04/21/24 History tablet,extended release 24 hr Wegovy 0.5 mg/0.5 mL subcutaneous 0.5 mg (0.5 mL) subcut Q7D #2 mL 02/23/24 04/21/24 Rx pen injector (semaglutide (weight loss)) levothyroxine 50 mcg tablet 50 mcg PO DAILY #30 tabs 02/24/24 04/21/24 Rx Allergies Allergy/AdvReac Type Severity Reaction Status Date / Time bee venom protein (honey bee) Allergy Severe Anaphylaxis Verified 04/21/24 18:55 clams Allergy Severe Anaphylaxis Verified 04/21/24 18:55 coconut Allergy Severe rash if Verified 04/21/24 18:55 touched, throat closes if eaten mussels Allergy Severe Anaphylaxis Verified 04/21/24 18:55 oyster extract Allergy Severe Anaphylaxis Verified 04/21/24 18:55 scallops Allergy Severe Anaphylaxis Verified 04/21/24 18:55 lamotrigine Allergy Intermediate itching, Verified 04/21/24 18:55 rash,sob(to generic) can use brand name copper Allergy Mild rash Verified 04/21/24 18:55 nickel Allergy Mild rash Verified 04/21/24 18:55 pineapple Allergy Mild MOUTH RASH Verified 04/21/24 18:55 NSAIDS (Non-Steroidal AdvReac Unknown due to Verified 04/21/24 18:55 Anti-Inflamma fibromuscular dysplasia dx Past Med/Surg History Problem List (Updated 04/21/24 @ 20:13 by Yaakov Padilla MD) Neck pain (Acute) Alteration in vision (Acute) Hypertension (Acute) Chest pain (Acute) Secondary hyperparathyroidism Schatzki's ring Benign meningioma of brain Classic migraine with aura (Chronic) Hypertension (Chronic) Pre-diabetes Vitamin D deficiency (Chronic) Osteoarthritis of left hip Deep acetabular socket Femoroacetabular impingement of left hip Fibromyalgia Vitamin B12 deficiency (Chronic) Urinary incontinence (Chronic) Sacral radiculopathy (Chronic) Nephrolithiasis (Chronic) Insomnia (Chronic) CHAPIS positive Hyperglycemia Constipation Sleep apnea Obesity (Chronic) Class 3 obesity Hyperlipidemia Hearing decreased Left hip pain Left hip impingement syndrome Ventral hernia (Chronic) Fatty liver (Chronic) CT scan 06/01/2021 Cervical radiculopathy at C7 (Chronic) Fibromuscular dysplasia Medical History Esophageal dysphagia Edema Primary fibromyalgia syndrome History of COVID-19 2019, 2020 > not hospitalized Acute meniscal injury of left knee Acute lumbar back pain Sleep apnea cpap Left lumbar radiculopathy Herniated disc LUMBAR History of cervical cancer hysterectomy Rectal bleeding none at present Extrinsic asthma only uses res inh during summer for allergy to [place]ilac Post traumatic stress disorder Reflux esophagitis Osteoarthritis GERD (gastroesophageal reflux disease) Bulging of cervical intervertebral disc ROM WNL Neuropathy arms and legs Chronic bronchitis SUMMER MONTHS Seasonal allergies Surgical History Status post epidural steroid injection History of surgery removal of kylee stuck inside throat History of ankle surgery left x2 History of arthroscopy of left shoulder History of wisdom tooth extraction History of hysterectomy (02/21/12) History of esophagogastroduodenoscopy (EGD) History of colonoscopy with polypectomy History of surgical removal of ganglion cyst right wrist History of removal of ureteral stent S/P cystoscopy with ureteral stent placement History of knee surgery BL Status post wrist surgery LEFT History of endometrial ablation History of bilateral tubal ligation History of cholecystectomy Status post myringotomy with tube placement of both ears History of tonsillectomy Family History Grandmother (Maternal) Family history of reaction to anesthesia PONV, RESPIRATORY ISSUES Grandmother Colon cancer Father Heart disease Inflammatory bowel disease Mother Inflammatory bowel disease Uncle Colon cancer Grandmother (Paternal) Myocardial infarction Grandfather (Paternal) Myocardial infarction Prostate cancer Denies family history of Ovarian cancer Breast cancer Social History Smoking Status: Never smoker Tobacco Type: Cigars Second Hand Exposure: No; Do You Dip or Chew Tobacco: No; Hx Alcohol Use: Yes Alcohol type: wine Hx Substance Use: No Preferred Language: Swedish Communication Ability: Effective Visual Impairment: No Limitations Hearing Ability: Normal Reverberatory Furnace Supervisor Required: No Beliefs That Will Affect Care: None Current Living Situation: Family Current Living Situation Comment: Lives with and 2 kids and sister current occupational status: employed Feels Safe at Home: Yes Diet: low salt Diet Comment: Does not follow specific diet, tries to make healthier choices. caffeine: Yes Dental Care, Regularly: Yes Physical Activity Frequency: Does not Exercise Physical Activity Frequency Comment: SWIMMING Seatbelt Use: never Sunscreen Use: Yes Assistive Devices: Glasses Review of Systems A total of 10 systems reviewed and were otherwise negative Physical Exam Vital Signs Vital Signs - 24 hr 04/21/24 14:47 04/21/24 15:19 04/21/24 16:06 Temperature 36.5 C Temperature Source Temporal Artery Scan Pulse Rate 95 H 93 H Pulse Rate [Apical] Pulse Rate from SpO2 Sensor 93 H Pulse Rhythm Pulse Rhythm [Apical] Pulse Strength [Apical] Respiratory Rate 20 26 H Respiratory Effort / Characteristics Non-Labored Spontaneous Non-Labored Spontaneous Respiratory Depth Normal Normal Respiratory Pattern Blood Pressure 187/113 H Blood Pressure [Left Arm] Blood Pressure [Left Radial Artery] Blood Pressure Mean 137 Blood Pressure Mean [Left Arm] Blood Pressure Mean [Left Radial Artery] Blood Pressure Position [Left Arm] Blood Pressure Position [Left Radial Artery] Pulse Oximetry 95 96 Oxygen Delivery Method Room Air Room Air Sepsis Recent Fever Within 48 Hours No Sepsis New/Unexplained Change in Mental Status N/A Sepsis Action Taken by Nursing No Action Required 04/21/24 16:12 04/21/24 16:13 04/21/24 16:13 Temperature Temperature Source Pulse Rate 91 H Pulse Rate [Apical] 88 Pulse Rate from SpO2 Sensor 92 H Pulse Rhythm Pulse Rhythm [Apical] Regular Pulse Strength [Apical] Normal Respiratory Rate 22 20 Respiratory Effort / Characteristics Non-Labored Spontaneous Respiratory Depth Normal Respiratory Pattern Regular Blood Pressure Blood Pressure [Left Arm] 175/105 H Blood Pressure [Left Radial Artery] Blood Pressure Mean Blood Pressure Mean [Left Arm] 128 Blood Pressure Mean [Left Radial Artery] Blood Pressure Position [Left Arm] Lying Blood Pressure Position [Left Radial Artery] Pulse Oximetry 96 97 96 Oxygen Delivery Method Room Air Room Air Sepsis Recent Fever Within 48 Hours Sepsis New/Unexplained Change in Mental Status Sepsis Action Taken by Nursing 04/21/24 16:13 04/21/24 16:21 04/21/24 16:54 Temperature Temperature Source Pulse Rate 88 84 92 H Pulse Rate [Apical] Pulse Rate from SpO2 Sensor 86 92 H Pulse Rhythm Regular Pulse Rhythm [Apical] Pulse Strength [Apical] Respiratory Rate 20 17 19 Respiratory Effort / Characteristics Respiratory Depth Respiratory Pattern Blood Pressure Blood Pressure [Left Arm] Blood Pressure [Left Radial Artery] Blood Pressure Mean Blood Pressure Mean [Left Arm] Blood Pressure Mean [Left Radial Artery] Blood Pressure Position [Left Arm] Blood Pressure Position [Left Radial Artery] Pulse Oximetry 97 96 98 Oxygen Delivery Method Room Air Sepsis Recent Fever Within 48 Hours Sepsis New/Unexplained Change in Mental Status Sepsis Action Taken by Nursing 04/21/24 17:11 04/21/24 17:21 04/21/24 17:27 Temperature Temperature Source Pulse Rate 97 H 96 H Pulse Rate [Apical] 92 H Pulse Rate from SpO2 Sensor Pulse Rhythm Pulse Rhythm [Apical] Regular Pulse Strength [Apical] Normal Respiratory Rate 26 H 22 Respiratory Effort / Characteristics Non-Labored Spontaneous Respiratory Depth Normal Respiratory Pattern Regular Blood Pressure Blood Pressure [Left Arm] 178/96 H Blood Pressure [Left Radial Artery] Blood Pressure Mean Blood Pressure Mean [Left Arm] 123 Blood Pressure Mean [Left Radial Artery] Blood Pressure Position [Left Arm] Lying Blood Pressure Position [Left Radial Artery] Pulse Oximetry 95 Oxygen Delivery Method Room Air Sepsis Recent Fever Within 48 Hours Sepsis New/Unexplained Change in Mental Status Sepsis Action Taken by Nursing 04/21/24 17:30 04/21/24 17:45 04/21/24 18:01 Temperature Temperature Source Pulse Rate 91 H 92 H Pulse Rate [Apical] Pulse Rate from SpO2 Sensor 92 H 91 H Pulse Rhythm Pulse Rhythm [Apical] Pulse Strength [Apical] Respiratory Rate 26 H 26 H Respiratory Effort / Characteristics Respiratory Depth Respiratory Pattern Blood Pressure 178/96 H 184/103 H 184/103 H Blood Pressure [Left Arm] Blood Pressure [Left Radial Artery] Blood Pressure Mean 123 130 116 Blood Pressure Mean [Left Arm] Blood Pressure Mean [Left Radial Artery] Blood Pressure Position [Left Arm] Blood Pressure Position [Left Radial Artery] Pulse Oximetry 96 96 Oxygen Delivery Method Sepsis Recent Fever Within 48 Hours Sepsis New/Unexplained Change in Mental Status Sepsis Action Taken by Nursing 04/21/24 18:29 04/21/24 18:31 04/21/24 18:34 Temperature Temperature Source Pulse Rate Pulse Rate [Apical] 92 H Pulse Rate from SpO2 Sensor Pulse Rhythm Pulse Rhythm [Apical] Regular Pulse Strength [Apical] Normal Respiratory Rate 23 Respiratory Effort / Characteristics Non-Labored Spontaneous Respiratory Depth Normal Respiratory Pattern Regular Blood Pressure 200/117 H Blood Pressure [Left Arm] 200/117 H Blood Pressure [Left Radial Artery] 204/101 H Blood Pressure Mean 145 Blood Pressure Mean [Left Arm] 144 Blood Pressure Mean [Left Radial Artery] 135 Blood Pressure Position [Left Arm] Sitting Blood Pressure Position [Left Radial Artery] Lying Pulse Oximetry 97 Oxygen Delivery Method Room Air Sepsis Recent Fever Within 48 Hours Sepsis New/Unexplained Change in Mental Status Sepsis Action Taken by Nursing 04/21/24 18:47 04/21/24 19:00 Temperature Temperature Source Pulse Rate 94 H Pulse Rate [Apical] Pulse Rate from SpO2 Sensor 96 H Pulse Rhythm Pulse Rhythm [Apical] Pulse Strength [Apical] Respiratory Rate 15 Respiratory Effort / Characteristics Respiratory Depth Respiratory Pattern Blood Pressure 192/108 H 207/135 H Blood Pressure [Left Arm] Blood Pressure [Left Radial Artery] Blood Pressure Mean 138 144 Blood Pressure Mean [Left Arm] Blood Pressure Mean [Left Radial Artery] Blood Pressure Position [Left Arm] Blood Pressure Position [Left Radial Artery] Pulse Oximetry 97 Oxygen Delivery Method Sepsis Recent Fever Within 48 Hours Sepsis New/Unexplained Change in Mental Status Sepsis Action Taken by Nursing General: Well developed well nourished middle-age female who appears in no acute distress, breathing comfortably on room air. Normal speech HEENT: Normal cephalic atraumatic. Pupils are equal round and reactive to light. Extraocular movements are intact. Oropharynx is pink with moist mucous membranes. No swelling of the mouth lips or tongue. Neck: Supple with a midline trachea. No meningeal signs or stiffness, no JVD or bruits. No Stridor. Chest: Clear to auscultation bilaterally. No wheezes or rhonchi. No increased work of breathing. Heart: Regular rate and rhythm without murmurs or gallops. Abdomen: Soft nontender, nondistended without rebound guarding or rigidity. Extremities: No cyanosis clubbing or edema. No calf tenderness or assymetry Spine/Back. Non tender to palpation. No CVA tenderness Skin: Good turgor without rashes. Neurologic exam: Cranial nerves two through 12 are intact. Motor and sensation are intact and symmetrical throughout. Course Administered Medications Nitroglycerin (Nitroglycerin Sl 0.4 Mg/Tab Tab) 0.4 mg SL Q5M PRN PRN Reason: Chest Pain Stop: 05/21/24 15:12 Last Admin: 04/21/24 15:59 Dose: 0.4 mg Documented By: MSG Discontinued Medications Ioversol (Optiray 320 125ml) 118 ml IV ONCE ONE Stop: 04/21/24 16:39 Last Admin: 04/21/24 16:39 Dose: 118 ml Documented By: EDK Medical Decision Making Differential Diagnosis Acute coronary syndrome, hypertensive crisis/urgency, vascular disease, stroke or TIA, electrolyte or metabolic abnormality, infection Medical Records Attestation: I reviewed the patient's medical records. Home Medications Current Medication List: was personally reviewed by me Laboratory Data Attestation: I reviewed the patient's lab results. 04/21/24 15:08 04/21/24 15:08 Lab Results 04/21/24 04/21/24 04/21/24 Range/Units 15:08 16:21 19:01 WBC 13.39 H (4.8-10.8) K/ul RBC 5.05 (4.20-5.40) M/uL Hgb 14.3 (12.0-16.0) g/dl Hct 43.0 (37.0-47.0) % MCV 85.1 (80.0-100.0) fL MCH 28.3 (25.0-34.0) pg MCHC 33.3 (32.0-36.0) g/dL RDW Std Deviation 44.8 (36.4-46.3) fL RDW Coeff of Sarah 14.4 (11.5-14.5) % Plt Count 393 (130-400) K/uL MPV 9.8 (9.4-12.4) fL Immature Gran % (Auto) 0.4 % Neut % (Auto) 67.6 % Lymph % (Auto) 21.3 % [place] % (Auto) 7.8 % Eos % (Auto) 2.2 % Baso % (Auto) 0.7 % Neut # (Auto) 9.03 H (1.40-6.50) K/uL Lymph # (Auto) 2.85 (1.20-3.40) K/uL [place] # (Auto) 1.05 H (0.11-0.59) K/uL Eos # (Auto) 0.30 (0.00-0.50) K/uL Baso # (Auto) 0.10 (0.00-0.20) K/uL Immature Gran # (Auto) 0.06 (0.01-0.20) K/uL PT Cancelled 10.2 INR Cancelled 0.9 APTT Cancelled 27 PTT Ratio Cancelled 1.0 Sodium 139 (136-145) mmol/L Potassium 4.3 (3.5-5.1) mmol/L Chloride 107 (98-107) mmol/L Carbon Dioxide 25 (21-32) mmol/L Anion Gap 7 (3-11) BUN 10 (6-23) mg/dl Creatinine 0.60 (0.6-1.2) mg/dl Est Cr Clr Drug Dosing Not Reportable Est GFR ( Amer) 130.3 ml/min Est GFR (Non-Af Amer) 112.4 ml/min BUN/Creatinine Ratio 16.7 (10-20) Glucose 92 (70-99(Fasting)) mg/dl Calcium 8.8 (8.6-10.3) mg/dl Total Bilirubin 0.3 (0.2-1.0) mg/dl AST 26 (13-39) U/L ALT 20 (7-52) U/L Alkaline Phosphatase 102 (34-104) U/L Troponin I High Sens 5.2 5.0 (0-14) pg/ml Total Protein 6.8 (6.0-8.3) gm/dl Albumin 3.8 (3.4-5.0) gm/dl Globulin 3.0 (2.5-4.0) gm/dl Albumin/Globulin Ratio 1.3 (0.9-2) Lipase 23 (11-82) U/L Imaging Data Attestation: I personally reviewed and interpreted this imaging study as follows: My Impression: Chest x-rayno acute infiltrate, failure, pneumothorax seen Head CTno hemorrhage or mass effect seen Radiologist's Impression: Chest X-Ray 04/21/24 15:14 XR chest 1V portable HISTORY: 43 years-old Female Chest pain, nonspecific COMPARISON: 03/05/2024 TECHNIQUE: AP view the chest FINDINGS: Cardiomediastinal and hilar silhouettes are within normal limits. No pneumothorax, pleural effusion or airspace consolidation. Bones appear intact. IMPRESSION: No acute process. ACT 112: Negative or not required by law. The above report was generated using voice recognition software. It may contain grammatical, syntax or spelling errors. Electronically signed by: Rui Huertas M.D. 04/21/2024 3:38 PM Chest CTA 04/21/24 16:18 CT angio chest dissec wo/w con CT DOSE: 2935.55 mGy.cm HISTORY: 43 years-old Female with htn, chest pain, blurry vision. Acute hypertension with chest pain TECHNIQUE: Multiple CTA images of the chest were obtained with and without the intravenous administration of 118 ml Optiray. Coronal and sagittal MIPS were obtained from the axial data set and were submitted for review. All measurements were obtained according to NASCET criteria. A dose lowering technique was utilized adhering to the principles of ALARA. COMPARISON: Chest CT 10/16/2022 FINDINGS: CTA: No mediastinal or intramural hematoma. No pericardial effusion. Heart is normal in size. No thoracic aortic aneurysm or dissection. Unremarkable opacified pulmonary artery. CT CHEST: Limited study secondary to patient body habitus. Unremarkable thyroid. No lymphadenopathy. Lungs are clear. No pneumothorax or pleural effusion. Central airways are clear. Hepatomegaly with hepatic steatosis. Unremarkable soft tissues. No acute fracture. IMPRESSION: Unremarkable CTA of the chest. ACT 112: Negative or not required by law. The above report was generated using voice recognition software. It may contain grammatical, syntax or spelling errors. Electronically signed by: Rui Huertas M.D. 04/21/2024 5:19 PM Head CTA 04/21/24 16:18 CT angio head wo/w, CT angio neck with con CLINICAL HISTORY: 43 years-old Female with htn, blurry vision left eye. Acute hypertension with left eye vision loss COMPARISON STUDY: 02/20/2024 TECHNIQUE: Unenhanced axial CT scan of the brain is performed. Subsequently, following the IV administration of 118 cc of Optiray, CT angiogram of the head and neck. Images are reviewed in the axial, sagittal, and coronal planes. 3-D MIPS images are created and assessed. IV contrast was administered without complication. All measurements were obtained according to NASCET criteria. A dose lowering technique was utilized adhering to the principles of ALARA. FINDINGS: CT BRAIN: There is no acute intracranial hemorrhage, midline shift, hydrocephalus, intracranial mass, territorial ischemia or abnormal extra-axial collections. No abnormal intra-axial or extra-axial enhancement. Mastoid air cells and middle ear cavities are clear. No calvarial fracture. Paranasal sinuses are clear. CT ANGIOGRAM OF THE BRAIN: Three-vessel morphology of the thoracic aorta arch. Common and internal carotid arteries appear patent. The bilateral anterior and middle cerebral arteries are also patent. The vertebrobasilar system and posterior cerebral arteries are widely patent. There is no aneurysm, high-grade stenosis, or proximal branch occlusion identified. Dural sinuses appear patent. Lung apices are clear. Unremarkable soft tissues. IMPRESSION: 1. No acute intracranial abnormality. 2. Unremarkable CTA of the head and neck. ACT 112: Negative or not required by law. The above report was generated using voice recognition software. It may contain grammatical, syntax or spelling errors. Electronically signed by: Rui Huertas M.D. 04/21/2024 5:10 PM Neck CTA 04/21/24 16:18 CT angio head wo/w, CT angio neck with con CLINICAL HISTORY: 43 years-old Female with htn, blurry vision left eye. Acute hypertension with left eye vision loss COMPARISON STUDY: 02/20/2024 TECHNIQUE: Unenhanced axial CT scan of the brain is performed. Subsequently, following the IV administration of 118 cc of Optiray, CT angiogram of the head and neck. Images are reviewed in the axial, sagittal, and coronal planes. 3-D MIPS images are created and assessed. IV contrast was administered without complication. All measurements were obtained according to NASCET criteria. A dose lowering technique was utilized adhering to the principles of ALARA. FINDINGS: CT BRAIN: There is no acute intracranial hemorrhage, midline shift, hydrocephalus, intracranial mass, territorial ischemia or abnormal extra-axial collections. No abnormal intra-axial or extra-axial enhancement. Mastoid air cells and middle ear cavities are clear. No calvarial fracture. Paranasal sinuses are clear. CT ANGIOGRAM OF THE BRAIN: Three-vessel morphology of the thoracic aorta arch. Common and internal carotid arteries appear patent. The bilateral anterior and middle cerebral arteries are also patent. The vertebrobasilar system and posterior cerebral arteries are widely patent. There is no aneurysm, high-grade stenosis, or proximal branch occlusion identified. Dural sinuses appear patent. Lung apices are clear. Unremarkable soft tissues. IMPRESSION: 1. No acute intracranial abnormality. 2. Unremarkable CTA of the head and neck. ACT 112: Negative or not required by law. The above report was generated using voice recognition software. It may contain grammatical, syntax or spelling errors. Electronically signed by: Rui Huertas M.D. 04/21/2024 5:10 PM ECG Data Attestation: I personally reviewed and interpreted this ECG as follows: Indication: + chest pain and + SOB/dyspnea Rate (beats per minute): 86 Rhythm: + normal sinus ECG Intervals/blocks: + Incomplete right bundle branch block and + Normal QT ECG [place]: + Normal ECG ST segments: + Normal ST segments ECG Findings: no PACs or no PVCs Comparison ECG Date: from (03/05/24) Change: no significant change MDM Narrative This patient comes in described above. She was placed in room A2. she has had high blood pressure at home and now has had some chest pain which is 5 out of 10. She has had nitroglycerin before without problems so I did order sublingual nitro. This will help her chest pain hopefully as well as blood pressure as well potentially. EKG, chest x-ray and multiple blood testing was obtained. I have reviewed her old chart. She did tolerate the nitroglycerin well and her chest pain resolved. She also had resolution of her visual change. She has no significant acrylate or metabolic abnormality her troponin is negative. I did do a CAT scan of her head as well as angiography of the head neck and chest to rule out any vascular process given her hypertension and her symptoms there is no evidence to suggest aortic dissection or vascular problem. I also did look at her retina with the retina Scanner and I do not see any acute abnormalities or hemorrhage. I discussed the case at length with Dr. Guerrero and he also looked at the images on Bruno. I have consulted the hospitalist, Dr. Jo, to see the patient in the ER for further treatment and evaluation. I do think she needs a cardiac rule out and better control of her blood pressure as well her blood pressure is trending downward compared to where she was at home but she tends to be chronically elevated. 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:Upon my evaluation patient noted to be normal sinus rhythm with a rate of 85 Impression & Plan Chest pain, Hypertension, Alteration in vision, Neck pain Discharge Plan Visit Data Chief Complaint: Cardiac Assessment Stated Complaint: FIBRO, POSSIBLE MINI HEART ATTACK ED Provider: Yaakov Padilla Discharge Problem: Chest pain, Hypertension, Alteration in vision, Neck pain Forms Stand Alone Forms: My [employer] Prescriptions Prescriptions: No Action epinephrine [EpiPen 2-Martin] 0.3 mg/0.3 mL auto-injector 0.3 mg IM Q10M PRN (Reason: ALLERGY REACTION) Qty: 2 0RF Rx Instructions: Until response mecobalamin (vitamin B12) 10,000 mcg recon soln 1,000 mcg IM MONTHLY Qty: 1 6RF valsartan 320 mg tablet 320 mg PO DAILY Qty: 90 2RF amlodipine [Norvasc] 10 mg tablet 10 mg PO QAM Qty: 90 3RF levothyroxine 50 mcg tablet 50 mcg PO DAILY Qty: 30 5RF Rx Instructions: at noon Wegovy 0.5 mg/0.5 mL pen injector 0.5 mg subcut Q7D Qty: 2 1RF Rx Instructions: every tuesday Medical Marijuana 1 mg topical PM PRN (Reason: joint pain) Rx Instructions: USES FOR JOINT PAIN oxybutynin chloride 5 mg tablet extended release 24hr 5 mg PO PM PRN (Reason: PER PT "USES PRN".) furosemide 20 mg tablet 40 mg PO BID Referrals Referrals: Lalo Wade MD [Primary Care Provider] - Discharge Problem: Chest pain Qualifiers: Chest pain type: precordial pain Qualified Code(s): R07.2 - Precordial pain Hypertension Qualifiers: Hypertension type: unspecified Qualified Code(s): I10 - Essential (primary) hypertension
[2024-04-21 15:27] LABS: Basophils % (auto) 0.7 %; Eosinophils % (auto) 2.2 %; Hemoglobin 14.3 g/dl (12.0-16.0); Immature Granulocytes # (auto) 0.06 K/uL (0.01-0.20); Immature Granulocytes % (auto) 0.4 %; Lymphocytes # (auto) 2.85 K/uL (1.20-3.40); Lymphocytes % (auto) 21.3 %; Mean Corpuscular Hemoglobin 28.3 pg (25.0-34.0); Mean Corpuscular Hgb Conc 33.3 g/dL (32.0-36.0); Mean Corpuscular Volume 85.1 fL (80.0-100.0); Mean Platelet Volume 9.8 fL (9.4-12.4); Monocytes # (auto) 1.05 K/uL (0.11-0.59); Monocytes % (auto) 7.8 %; Neutrophils # (auto) 9.03 K/uL (1.40-6.50); Neutrophils % (auto) 67.6 %; Platelet Count 393 K/uL (130-400); RDW Coefficient of Variation 14.4 % (11.5-14.5); RDW Standard Deviation 44.8 fL (36.4-46.3); Red Blood Count 5.05 M/uL (4.20-5.40); White Blood Count 13.39 K/ul (4.8-10.8)
--- NOTE | 2024-04-21 15:40 | XRay Report ---
XR chest 1V portable HISTORY: 43 years-old Female Chest pain, nonspecific COMPARISON: 03/05/2024 TECHNIQUE: AP view the chest FINDINGS: Cardiomediastinal and hilar silhouettes are within normal limits. No pneumothorax, pleural effusion o r airspace consolidation. Bones appear intact. IMPRESSION: No acute process. ACT 112: Negative or not required by law. The above report was generated using voice recognition software. It may contain grammatical, syntax o r spelling errors. Electronically signed by: Rui Huertas M.D. 04/21/2024 3:38 PM
[2024-04-21 15:52] LABS: Alanine Aminotransferase 20 U/L (7-52); Albumin Globulin Ratio 1.3 (0.9-2); Albumin Level 3.8 gm/dl (3.4-5.0); Alkaline Phosphatase 102 U/L (34-104); Anion Gap 7 (3-11); Aspartate Aminotransferase 26 U/L (13-39); BUN Creatinine Ratio 16.7 (10-20); Bilirubin,Total 0.3 mg/dl (0.2-1.0); Blood Urea Nitrogen 10 mg/dl (6-23); Calcium 8.8 mg/dl (8.6-10.3); Carbon Dioxide 25 mmol/L (21-32); Chloride 107 mmol/L (98-107); Est GFR (African American) 130.3 ml/min; Est GFR (Non-African American) 112.4 ml/min; Glucose 92 mg/dl (70-99(Fasting)); Lipase 23 U/L (11-82); Potassium 4.3 mmol/L (3.5-5.1); Sodium 139 mmol/L (136-145); Total Protein 6.8 gm/dl (6.0-8.3)
[2024-04-21 15:59] LABS: Troponin I High Sensitivity 5.2 pg/ml (0-14)
[2024-04-21] MEDS: NITROGLYCERIN SL 0.4 MG/TAB TAB SL PRN (15:59)
[2024-04-21] MEDS: OPTIRAY 320 125ml IV ONE (16:39)
[2024-04-21 17:05] LABS: INR 0.9 (0.9-1.1); Partial Thromboplastin Time 27 Seconds (21-31); Prothrombin Time 10.2 Seconds (9.0-12.0)
--- NOTE | 2024-04-21 17:12 | CT Scan Report ---
CT angio head wo/w, CT angio neck with con CLINICAL HISTORY: 43 years-old Female with htn, blurry vision left eye. Acute hypertension with le ft eye vision loss COMPARISON STUDY: 02/20/2024 TECHNIQUE: Unenhanced axial CT scan of the brain is performed. Subsequently, following the IV adminis tration of 118 cc of Optiray, CT angiogram of the head and neck. Images are reviewed in the axial, sa gittal, and coronal planes. 3-D MIPS images are created and assessed. IV contrast was administered wi thout complication. All measurements were obtained according to NASCET criteria. A dose lowering tech nique was utilized adhering to the principles of ALARA. FINDINGS: CT BRAIN: There is no acute intracranial hemorrhage, midline shift, hydrocephalus, intracranial mass, territori al ischemia or abnormal extra-axial collections. No abnormal intra-axial or extra-axial enhancement. Mastoid air cells and middle ear cavities are clear. No calvarial fracture. Paranasal sinuses are cl ear. CT ANGIOGRAM OF THE BRAIN: Three-vessel morphology of the thoracic aorta arch. Common and internal carotid arteries appear paten t. The bilateral anterior and middle cerebral arteries are also patent. The vertebrobasilar system an d posterior cerebral arteries are widely patent. There is no aneurysm, high-grade stenosis, or proxim al branch occlusion identified. Dural sinuses appear patent. Lung apices are clear. Unremarkable soft tissues. IMPRESSION: 1. No acute intracranial abnormality. 2. Unremarkable CTA of the head and neck. ACT 112: Negative or not required by law. The above report was generated using voice recognition software. It may contain grammatical, syntax o r spelling errors. Electronically signed by: Rui Huertas M.D. 04/21/2024 5:10 PM
--- NOTE | 2024-04-21 17:21 | CT Scan Report ---
CT angio chest dissec wo/w con CT DOSE: 2935.55 mGy.cm HISTORY: 43 years-old Female with htn, chest pain, blurry vision. Acute hypertension with chest tu n TECHNIQUE: Multiple CTA images of the chest were obtained with and without the intravenous administra tion of 118 ml Optiray. Coronal and sagittal MIPS were obtained from the axial data set and were sub mitted for review. All measurements were obtained according to NASCET criteria. A dose lowering tech nique was utilized adhering to the principles of ALARA. COMPARISON: Chest CT 10/16/2022 FINDINGS: CTA: No mediastinal or intramural hematoma. No pericardial effusion. Heart is normal in size. No thoracic aortic aneurysm or dissection. Unremarkable opacified pulmonary artery. CT CHEST: Limited study secondary to patient body habitus. Unremarkable thyroid. No lymphadenopathy. Lungs are clear. No pneumothorax or pleural effusion. Central airways are clear. Hepatomegaly with hepatic stea tosis. Unremarkable soft tissues. No acute fracture. IMPRESSION: Unremarkable CTA of the chest. ACT 112: Negative or not required by law. The above report was generated using voice recognition software. It may contain grammatical, syntax o r spelling errors. Electronically signed by: Rui Huertas M.D. 04/21/2024 5:19 PM
--- NOTE | 2024-04-21 19:33 | History & Physical Report ---
Date of Service April 21, 2024 Assessment & Plan (1) Stroke-like symptoms: Plan: Left eye vision blurring, retinal scan taken by ER provider appears normal Will get Brain MRI but if negative low suspicion of TIA therefore no further workup planned unless positive (2) Chest pain, rule out acute myocardial infarction: Plan: Serial troponins, if negative suspect secondary to hypertensive urgency (3) Hypertensive urgency: Plan: Continue her routine medications, would avoid over treatment unless sBP > 220 or dBP > 120 consistently (4) Fibromuscular dysplasia: Plan: Noted history of this. CTAs without changes Plan VTE prophylaxis - low risk for overnight stay, consider if not discharged tomorrow Diet - heart healthy Disposition - observation to med/tele Admission and Anticipated Discharge Date Admission Date: April 21, 2024 History of Present Illness Chief Complaint: High blood pressure Primary Care Provider: Lalo Wade MD Rae Arreguin is a 43 year old female who presents to the ER with due to high blood pressure. She has longstanding problems with her blood pressure. She has a home blood pressure cuff that gets into a [employer] that gives her advice regarding when to go to the emergency room. Today she noticed left eye vision changes which she describes as a peripheral blurring of her vision coming in and out with associated left-sided chest tightness which is still ongoing although improved. Dobutamine stress echo was last in Sep 2022 which was negative for myocardial ischemia. Due to not feeling right she took her BP and it was 285/153 therefore was advised to go to the emergency room. The chest tightness has happened before with prior high blood pressures but the left eye vision blurring is new. No associated headache/migraine. Allergies Allergy/AdvReac Type Severity Reaction Status Date / Time bee venom protein (honey bee) Allergy Severe Anaphylaxis Verified 04/21/24 18:55 clams Allergy Severe Anaphylaxis Verified 04/21/24 18:55 coconut Allergy Severe rash if Verified 04/21/24 18:55 touched, throat closes if eaten mussels Allergy Severe Anaphylaxis Verified 04/21/24 18:55 oyster extract Allergy Severe Anaphylaxis Verified 04/21/24 18:55 scallops Allergy Severe Anaphylaxis Verified 04/21/24 18:55 lamotrigine Allergy Intermediate itching, Verified 04/21/24 18:55 rash,sob(to generic) can use brand name copper Allergy Mild rash Verified 04/21/24 18:55 nickel Allergy Mild rash Verified 04/21/24 18:55 pineapple Allergy Mild MOUTH RASH Verified 04/21/24 18:55 NSAIDS (Non-Steroidal AdvReac Unknown due to Verified 04/21/24 18:55 Anti-Inflamma fibromuscular dysplasia dx Home Medications Medication Instructions Recorded Confirmed Type Medical Marijuana 1 mg topical PM PRN joint pain 05/14/20 04/21/24 History epinephrine 0.3 mg/0.3 mL 0.3 mg (0.3 mL) IM Q10M PRN 07/13/23 04/21/24 Rx injection, auto-injector (EpiPen ALLERGY REACTION #2 ea 2-Martin) mecobalamin (vitamin B12) 10,000 1,000 mcg IM MONTHLY #1 ea 08/25/23 04/21/24 Rx mcg solution for injection valsartan 320 mg tablet 320 mg PO DAILY #90 tabs 01/16/24 04/21/24 Rx amlodipine 10 mg tablet (Norvasc) 10 mg PO QAM #90 tabs 01/17/24 04/21/24 Rx furosemide 20 mg tablet 40 mg PO BID 02/20/24 04/21/24 History oxybutynin chloride 5 mg 5 mg PO PM PRN PER PT "USES PRN". 02/20/24 04/21/24 History tablet,extended release 24 hr Wegovy 0.5 mg/0.5 mL subcutaneous 0.5 mg (0.5 mL) subcut Q7D #2 mL 02/23/24 04/21/24 Rx pen injector (semaglutide (weight loss)) levothyroxine 50 mcg tablet 50 mcg PO DAILY #30 tabs 02/24/24 04/21/24 Rx Past Med/Surg History Problem List (Updated 04/22/24 @ 00:19 by Ananda Jo MD) Chest pain, rule out acute myocardial infarction Stroke-like symptoms Neck pain (Acute) Alteration in vision (Acute) Hypertension (Acute) Chest pain (Acute) Secondary hyperparathyroidism Schatzki's ring Benign meningioma of brain Classic migraine with aura (Chronic) Hypertension (Chronic) Pre-diabetes Vitamin D deficiency (Chronic) Osteoarthritis of left hip Deep acetabular socket Femoroacetabular impingement of left hip Fibromyalgia Vitamin B12 deficiency (Chronic) Urinary incontinence (Chronic) Sacral radiculopathy (Chronic) Nephrolithiasis (Chronic) Insomnia (Chronic) CHAPIS positive Hyperglycemia Constipation Sleep apnea Obesity (Chronic) Class 3 obesity Hyperlipidemia Hearing decreased Left hip pain Left hip impingement syndrome Ventral hernia (Chronic) Fatty liver (Chronic) CT scan 06/01/2021 Cervical radiculopathy at C7 (Chronic) Fibromuscular dysplasia Medical History Esophageal dysphagia Edema Primary fibromyalgia syndrome History of COVID-19 2020 > not hospitalized Acute meniscal injury of left knee Acute lumbar back pain Sleep apnea cpap Left lumbar radiculopathy Herniated disc LUMBAR History of cervical cancer hysterectomy Rectal bleeding none at present Extrinsic asthma only uses res inh during summer for allergy to [place] Post traumatic stress disorder Reflux esophagitis Osteoarthritis GERD (gastroesophageal reflux disease) Bulging of cervical intervertebral disc ROM WNL Neuropathy arms and legs Chronic bronchitis SUMMER MONTHS Seasonal allergies Surgical History Status post epidural steroid injection History of surgery removal of kylee stuck inside throat History of ankle surgery left x2 History of arthroscopy of left shoulder History of wisdom tooth extraction History of hysterectomy (02/21/12) History of esophagogastroduodenoscopy (EGD) History of colonoscopy with polypectomy History of surgical removal of ganglion cyst right wrist History of removal of ureteral stent S/P cystoscopy with ureteral stent placement History of knee surgery BL Status post wrist surgery LEFT History of endometrial ablation History of bilateral tubal ligation History of cholecystectomy Status post myringotomy with tube placement of both ears History of tonsillectomy Family History Grandmother (Maternal) Family history of reaction to anesthesia PONV, RESPIRATORY ISSUES Grandmother Colon cancer Father Heart disease Inflammatory bowel disease Mother Inflammatory bowel disease Uncle Colon cancer Grandmother (Paternal) Myocardial infarction Grandfather (Paternal) Myocardial infarction Prostate cancer Denies family history of Ovarian cancer Breast cancer Social History Smoking Status: Never smoker Tobacco Type: Cigars Second Hand Exposure: No; Do You Dip or Chew Tobacco: No; Hx Alcohol Use: Yes Alcohol type: other Hx Substance Use: Yes Prescribed Medications: Marijuana Substance Use Type Other:: topical marijuana PRN Preferred Language: Macedonian Communication Ability: Effective Visual Impairment: No Limitations Hearing Ability: Normal 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 caffeine: Yes Dental Care, Regularly: Yes Physical Activity Frequency: Does not Exercise Physical Activity Frequency Comment: SWIMMING Seatbelt Use: never Sunscreen Use: Yes Assistive Devices: CPAP and Glasses Review of Systems Review of Systems: All systems reviewed & are unremarkable except as noted in HPI & below Physical Exam Constitutional: WD/WN, vitals as above + morbidly obese Eyes: PERRL, conjunctivae normal, anicteric sclerae EOM intact bilaterally ENMT: external ear and nose normal, oropharynx normal Respiratory: normal respiratory effort, lungs clear to auscultation Cardiovascular: RRR, no murmur, no edema Gastrointestinal (Abdomen): normal bowel sounds, soft, nontender, no hepatosplenomegaly Skin: no rashes, warm and dry Neurologic: moves all extremities and awake; no focal motor deficits and not confused Speech / Cognition: normal speech Motor/Sensory: no tremor, no pronator drift and no sensory deficit Cranial Nerves: PERRL, EOM intact bilaterally, normal facial strength, tongue midline, able to rotate head bilaterally, able to elevate shoulders bilaterally, no nystagmus and symmetric palate elevation Psychiatric: A+Ox3, euthymic affect Results & Data Results & Data Vital Signs (Past 12 Hours) Vital Signs Temp Pulse Pulse Resp BP BP BP 04/21/24 18:34 204/101 H 04/21/24 18:31 92 H 23 200/117 H 04/21/24 17:27 92 H 22 178/96 H 04/21/24 17:21 96 H 26 H 04/21/24 17:11 97 H 04/21/24 16:54 92 H 19 04/21/24 16:21 84 17 04/21/24 16:13 88 20 04/21/24 16:13 88 20 175/105 H 04/21/24 16:13 04/21/24 16:12 91 H 22 04/21/24 16:06 93 H 26 H 04/21/24 15:19 04/21/24 14:47 36.5 C 95 H 20 187/113 H Pulse Ox O2 Del Method 04/21/24 18:34 04/21/24 18:31 97 Room Air 04/21/24 17:27 95 Room Air 04/21/24 17:21 04/21/24 17:11 04/21/24 16:54 98 04/21/24 16:21 96 04/21/24 16:13 97 Room Air 04/21/24 16:13 96 Room Air 04/21/24 16:13 97 Room Air 04/21/24 16:12 96 04/21/24 16:06 96 04/21/24 15:19 Room Air 04/21/24 14:47 95 Room Air Laboratory Results Abnormal lab results 04/21/24 Range/Units 15:08 WBC 13.39 H (4.8-10.8) K/ul Neut # (Auto) 9.03 H (1.40-6.50) K/uL Calvert # (Auto) 1.05 H (0.11-0.59) K/uL Diagnostic Findings CT angio head wo/w, CT angio neck with con CLINICAL HISTORY: 43 years-old Female with htn, blurry vision left eye. Acute hypertension with left eye vision loss COMPARISON STUDY: 02/20/2024 TECHNIQUE: Unenhanced axial CT scan of the brain is performed. Subsequently, following the IV administration of 118 cc of Optiray, CT angiogram of the head and neck. Images are reviewed in the axial, sagittal, and coronal planes. 3-D MD PS images are created and assessed. IV contrast was administered without complication. All measurements were obtained according to NASCET criteria. A dose lowering technique was utilized adhering to the principles of ALARA. FINDINGS: CT BRAIN: There is no acute intracranial hemorrhage, midline shift, hydrocephalus, intracranial mass, territorial ischemia or abnormal extra-axial collections. No abnormal intra-axial or extra-axial enhancement. Mastoid air cells and middle ear cavities are clear. No calvarial fracture. Paranasal sinuses are clear. CT ANGIOGRAM OF THE BRAIN: Three-vessel morphology of the thoracic aorta arch. Common and internal carotid arteries appear patent. The bilateral anterior and middle cerebral arteries are also patent. The vertebrobasilar system and posterior cerebral arteries are widely patent. There is no aneurysm, high-grade stenosis, or proximal branch occlusion identified. Dural sinuses appear patent. Lung apices are clear. Unremarkable soft tissues. IMPRESSION: 1. No acute intracranial abnormality. 2. Unremarkable CTA of the head and neck. Medications Administered ER Medications Given: Nitroglycerin 0.4 SL ECG Rate (beats per minute): 86 Rhythm: normal sinus Findings: + RBBB (incomplete) Comparison ECG Date: from (Mar 05, 2024) Change: no significant change Code Status & VTE Plan Code Status Full VTE Prophylaxis Plan VTE Prophylaxis will be ordered: No PG Care Time/CCT Total # of Minutes Spent Total Time Spent with Patient: Total time spent is greater than 50% in coordination of care (as documented) at patient's floor/unit and/or counseling patient: Coding Level of Care Code 82726 INT INP/OBS CARE 2/55MIN Diagnoses Stroke-like symptoms R29.90 Chest pain, rule out acute myocardial infarction R07.9 Hypertensive urgency I16.0 Fibromuscular dysplasia I77.3
[2024-04-21] MEDS ORDERED: diazePAM 5 MG/ML 10ML VIAL IV PRN (20:33)
[2024-04-21] MEDS ORDERED: OXYBUTYNIN CHLORIDE XL 5 MG TABCR PO PRN (22:13)
[2024-04-21] MEDS ORDERED: LORazepam 1 MG TAB PO PRN (22:42)
[2024-04-21] MEDS: FUROSEMIDE 40 MG TAB PO STA (22:51)
[2024-04-21] MEDS: LORazepam 2 MG/1 ML VIAL IV STA (22:57)
--- NOTE | 2024-04-22 02:20 | Magnetic Resonance Report ---
Exam(s): MRI HEAD Without Contrast EXAM: MR Head Without Intravenous Contrast CLINICAL HISTORY: Reason for exam: left eye vision blurring, uncontrolled HTN. TECHNIQUE: Magnetic resonance images of the head/brain without intravenous contrast in multiple planes. COMPARISON: Prior head CT from April 21, 2024. FINDINGS: Brain: Unremarkable. No mass. No hemorrhage. No acute infarct. The flow voids at the base of the brain are intact. Ventricles: Unremarkable. No ventriculomegaly. Bones/joints: There is loss of normal T1 bright bone calvarium and proximal cervical spine. No acute fracture. Sinuses: Unremarkable as visualized. No acute sinusitis. Mastoid air cells: Unremarkable as visualized. No mastoid effusion. Orbits: Unremarkable as visualized. IMPRESSION: No evidence of acute intracranial pathology. Loss of normal T1 right bone marrow signal within the calvarium and proximal cervical spine concerning for bone marrow replacement process. Electronically signed by: Fartun Mendoza MD 04/22/24 02:19 AM
[2024-04-22] MEDS: LEVOTHYROXINE SODIUM 50 MCG TABLET PO SCH (05:37)
[2024-04-22 06:20] LABS: Basophils # (auto) 0.09 K/uL (0.00-0.20); Basophils % (auto) 0.9 %; Eosinophils # (auto) 0.29 K/uL (0.00-0.50); Eosinophils % (auto) 2.9 %; Hematocrit (blood only) 43.2 % (37.0-47.0); Hemoglobin 13.8 g/dl (12.0-16.0); Immature Granulocytes # (auto) 0.04 K/uL (0.01-0.20); Immature Granulocytes % (auto) 0.4 %; Lymphocytes # (auto) 2.47 K/uL (1.20-3.40); Lymphocytes % (auto) 24.5 %; Mean Corpuscular Hemoglobin 27.7 pg (25.0-34.0); Mean Corpuscular Hgb Conc 31.9 g/dL (32.0-36.0); Mean Corpuscular Volume 86.6 fL (80.0-100.0); Mean Platelet Volume 9.9 fL (9.4-12.4); Monocytes % (auto) 6.9 %; Neutrophils # (auto) 6.51 K/uL (1.40-6.50); Neutrophils % (auto) 64.4 %; Platelet Count 350 K/uL (130-400); RDW Coefficient of Variation 14.6 % (11.5-14.5); Red Blood Count 4.99 M/uL (4.20-5.40)
[2024-04-22 06:40] LABS: Albumin Globulin Ratio 1.3 (0.9-2); Albumin Level 3.5 gm/dl (3.4-5.0); BUN Creatinine Ratio 19.2 (10-20); Bilirubin,Total 0.3 mg/dl (0.2-1.0); Calcium 8.9 mg/dl (8.6-10.3); Est GFR (African American) 136.6 ml/min; Est GFR (Non-African American) 117.8 ml/min; Globulin 2.8 gm/dl (2.5-4.0); Total Protein 6.3 gm/dl (6.0-8.3)
[2024-04-22 07:10] LABS: Thyroid Stimulating Hormone 6.032 uIu/ml (0.300-4.500); Troponin I High Sensitivity 9.2 pg/ml (0-14)
[2024-04-22 07:46] LABS: T4 Free Thyroxine 0.79 ng/dl (0.61-1.60)
[2024-04-22 09:01] VITALS: RESP 18
[2024-04-22] MEDS: amLODIPine BESYLATE 5 MG TAB PO SCH (10:13)
[2024-04-22] MEDS: VALSARTAN 80 MG TAB PO SCH (10:13)
[2024-04-22] MEDS: FUROSEMIDE 40 MG TAB PO SCH (10:13)
[2024-04-22 12:13] VITALS: BP 154/89; PULSE 92; TEMP 97.5; O2SAT 95
--- NOTE | 2024-04-24 18:46 | Electrocardiogram Report ---
Test Reason : Blood Pressure : */* mmHG Vent. Rate : 86 BPM Atrial Rate : 86 BPM P-R Int : 136 ms QRS Dur : 98 ms QT Int : 390 ms P-R-T Axes : 38 -31 11 degrees QTcB Int : 466 ms Normal sinus rhythm Left axis deviation Incomplete right bundle branch block Minimal voltage criteria for LVH, may be normal variant Poor R wave progression, consider anterior [place] vs. lead placement vs. LVH Abnormal ECG When compared with ECG of 05-Mar-2024 09:39, No significant change Confirmed by Rudi Minaya ([id number]) on 04/24/2024 6:45:37 PM Referred By: REFERRED SELF Confirmed By: Rudi Minaya
--- NOTE | 2024-04-27 08:33 | Discharge Summary ---
Discharge Summary Date of Service April 22, 2024 Principal Dx & Hospital Course #1 = Principal Diagnosis (1) Stroke-like symptoms: Left eye vision blurring, retinal scan taken by ER provider appears normal Symptoms appeared to have resolved. Can consider adding metoprolol to your regimen. Will defer to PCP. (2) Chest pain, rule out acute myocardial infarction: Serial troponins, negative (3) Hypertensive urgency: Continue her routine medications, (4) Fibromuscular dysplasia: Noted history of this. CTAs without changes Admission HPI Per Admitting Provider Rae Arreguin is a 43 year old female who presents to the ER with due to high blood pressure. She has longstanding problems with her blood pressure. She has a home blood pressure cuff that gets into a company that gives her advice regarding when to go to the emergency room. Today she noticed left eye vision changes which she describes as a peripheral blurring of her vision coming in and out with associated left-sided chest tightness which is still ongoing although improved. Dobutamine stress echo was last in Sep 2022 which was negative for myocardial ischemia. Due to not feeling right she took her BP and it was 285/153 therefore was advised to go to the emergency room. The chest tightness has happened before with prior high blood pressures but the left eye vision blurring is new. No associated headache/migraine. Discharge Exam Constitutional: WD/WN, vitals as above + morbidly obese Eyes: PERRL, conjunctivae normal, anicteric sclerae EOM intact bilaterally ENMT: external ear and nose normal, oropharynx normal Respiratory: normal respiratory effort, lungs clear to auscultation Cardiovascular: RRR, no murmur, no edema Gastrointestinal (Abdomen): normal bowel sounds, soft, nontender, no hepatosplenomegaly Skin: no rashes, warm and dry Neurologic: moves all extremities and awake; no focal motor deficits Psychiatric: A+Ox3, euthymic affect Discharge Plan Discharge Items Patient Disposition: Home - Self-Care Reason For Visit: STROKE LIKE SYMPTOMS,HYPERTENSIVE URG,CHEST PAIN R Discharge Diagnosis: stroke like symptoms. Activity: Resume your previous activity Non-emergency contact: Primary Care Provider Call non-emergency contact if: you have any medication questions Follow-up/Referrals: Lalo Wade MD [Primary Care Provider] - Diet: Heart Healthy Addtl Attending Provider Instructions: Your MRI was negative, which ruled out a stroke. We can consider adding metoprolol in the evening to help control your blood pressure. will recommend close followup with your PCP to monitor your blood pressure Pending Studies at Discharge: No Stand-Alone Forms: [facility], Smoking Cessation Medications and DC Order Prescriptions: Continued epinephrine [EpiPen 2-Martin] 0.3 mg/0.3 mL auto-injector 0.3 mg IM Q10M PRN (Reason: ALLERGY REACTION) Qty: 2 0RF Rx Instructions: Until response mecobalamin (vitamin B12) 10,000 mcg recon soln 1,000 mcg IM MONTHLY Qty: 1 6RF valsartan 320 mg tablet 320 mg PO DAILY Qty: 90 2RF amlodipine [Norvasc] 10 mg tablet 10 mg PO QAM Qty: 90 3RF levothyroxine 50 mcg tablet 50 mcg PO DAILY Qty: 30 5RF Rx Instructions: at noon Wegovy 0.5 mg/0.5 mL pen injector 0.5 mg subcut Q7D Qty: 2 1RF Rx Instructions: every tuesday Medical Marijuana 1 mg topical PM PRN (Reason: joint pain) Rx Instructions: USES FOR JOINT PAIN oxybutynin chloride 5 mg tablet extended release 24hr 5 mg PO PM PRN (Reason: PER PT "USES PRN".) furosemide 20 mg tablet 40 mg PO BID No Action metoprolol succinate 50 mg tablet extended release 24 hr 50 mg PO PM Qty: 30 5RF Discharge Orders: Discharge Order (Routine); Ordered 04/22/24 Ordered By: Indra Medina Admission Data Admit Date/Time: 04/21/24 19:11 Attending Provider: Indra Medina Admit Provider: Ananda Jo Primary Care Provider: Lalo Wade V. Other Providers: Ananda Jo Other Interventions: Discharge Summary Assessment (RN) Last Done: 04/22/24 12:11 Hospital Stay Data Consultations 04/21/24 17:42 ED Decision to Admit Stat Diagnostic Imagining Performed 04/21/24 16:18 CT angio chest dissec wo/w con Stat CT angio head wo/w Stat CT angio neck with con Stat 04/21/24 20:32 MRI Brain [MR brain wo con] Stat Pending Results Patient Have Any Pending Studies at Discharge: No Discharge Instructions Given to Patient (Per Discharging Provider) Your MRI was negative, which ruled out a stroke. We can consider adding metoprolol in the evening to help control your blood pressure. will recommend close followup with your PCP to monitor your blood pressure Total Time Total Time Spent Total Time Spent (In Minutes): 32 Coding Level of Care Code 31564 INP/OBS DISCH >30 MIN Diagnoses Stroke-like symptoms R29.90 Chest pain, rule out acute myocardial infarction R07.9 Hypertensive urgency I16.0 Fibromuscular dysplasia I77.3
== END 2024-04-22 14:22 | disposition home or self-care (01) ==
LOC: ED 14:44 → 2N 14:44 → SUATTDRO 19:11 → 2N 21:38
DX: Z91.013 Allergy to seafood; Z88.8 Allergy status to other drugs, medicaments and biological substances; Z87.39 Personal history of other diseases of the musculoskeletal system and connective tissue; Z79.899 Other long term (current) drug therapy; Z91.030 Bee allergy status; R29.90 Unspecified symptoms and signs involving the nervous system; I77.3 Arterial fibromuscular dysplasia; I16.0 Hypertensive urgency; Z91.048 Other nonmedicinal substance allergy status; I25.10 Atherosclerotic heart disease of native coronary artery without angina pectoris; H53.8 Other visual disturbances; Z91.018 Allergy to other foods; R07.9 Chest pain, unspecified; M54.2 Cervicalgia